=== PATIENT | female | born 1975 | race Caucasian/White ===

== ENCOUNTER 2017-09-16 18:28 | Inpatient (IN) | payer OTHER, MEDICAID ==
--- NOTE | 2017-09-16 19:13 | EDPHY ---
H & P Smoking Status: Never smoked Time Seen by Provider: 09/16/17 18:49 HPI/ROS: CHIEF COMPLAINT: Bipolar HISTORY OF PRESENT ILLNESS: 42-year-old female presents to the emergency department with a history of bipolar. She also has a history of frequent ECT. She presents to the emergency department extremely agitated. Her states that she gets like this frequently. She used to have ECT monthly however has not had ECT in about 3 months. She was already evaluated by mental health and was sent to the emergency department for medical clearance and likely admission and likely ECT tomorrow. No substance abuse. No history of trauma. REVIEW OF SYSTEMS: Obtained by the . Constitutional: No fever, no chills. Eyes: No double or blurry vision. ENT: No sore throat. Respiratory: No cough, no shortness of breath. Cardiac: No chest pain. Gastrointestinal: No abdominal pain, vomiting or diarrhea. Genitourinary: No dysuria. Musculoskeletal: No neck or back pain. Skin: No rashes. Neurological: No headache. (Katy Jason) Past Medical/Surgical History: Bipolar (Katy Jason) Social History: (Katy Jason) Physical Exam: General Appearance: Alert, no distress. No physical signs of trauma to her head. Eyes: Pupils equal and round. Extraocular motions are all intact. ENT: Mouth: Mucous membranes moist. Respiratory: No wheezing, rhonchi, or rales, lungs are clear to auscultation. Cardiovascular: Regular rate and rhythm. Gastrointestinal: Abdomen is soft and nontender, no masses, no rebound or guarding, bowel sounds normal. Neurological: Uncooperative, can't determine. Skin: Warm and dry, no rashes. Musculoskeletal: Nontender to palpate along the cervical, thoracic or lumbar spine. Neck is supple. Extremities: Full range of motion and no peripheral edema. Psychiatric: Agitated. (Katy Jason) Constitutional: Initial Vital Signs Temperature (C) 36.8 C 09/16/17 19:01 Heart Rate 116 H 09/16/17 19:01 Respiratory Rate 18 09/16/17 19:01 Blood Pressure 107/75 09/16/17 19:01 O2 Sat (%) 97 09/16/17 19:01 O2 Delivery Mode Room Air O2 (L/minute) 97 Allergies/Adverse Reactions: risperidone [From Risperdal] Allergy (Severe, Verified 11/05/14 21:18) haloperidol [From Haldol] Allergy (Verified 09/17/17 07:10) Home Medications: Medication Instructions Recorded Divalproex [Depakote] 1,000 mg PO DAILY #60 tab 11/20/14 Divalproex [Depakote] 1,500 mg PO HS #90 tab 11/20/14 Levothyroxine [Synthroid 100 mcg 100 mcg PO DAILY@10 #30 tab 11/20/14 (*)] [place] Carbonate [[place] 300 mg PO BID #60 cap 11/20/14 Carbonate Cap 300 mg (*)] lamoTRIgine [LamICTAL 100 MG (*)] 200 mg PO HS #60 tab 11/20/14 Medical Decision Making ED Course/Re-evaluation: The patient has been medically cleared. She is awaiting placement. Mental health is aware. Her lithium and Depakote levels are therapeutic. The patient has a history of neuroleptic malignant syndrome and therefore does not tolerate her medications. Her states that initially she was very sensitive and Ativan. She was initially given Zyprexa 10 mg p.o. and then was given Ativan p.o.. (Katy Jason) 0353: Patient has been evaluated. Plan for transfer to [address] [place] [address] in the morning. For ECT. 0716: Patient here in emergency room floridly psychotic, history of bipolar with medication compliance brought in with her . Patient is to be admitted to [address] [place] [address] today. For ECT. Plan will be for acceptance once a bed is available. Patient be appropriately transfer. Patient signed over at 7:00 a.m. shift change to Dr. Person. (Prateek Riley) Differential Diagnosis: Altered mental status including but not limited to hypoglycemia, infectious process, electrolyte abnormality, head injury and intoxicants. (Katy Jason) Other Provider: I assumed care of the patient at 7 o'clock in the morning pending psychiatric disposition. Update at 7:30 a.m.: I am informed the patient has been accepted for inpatient admission here at [facility] inpatient psychiatric unit. (Cory Person) The patient was evaluated and managed by the Physician Keyseating Machine Set Up Operator/ Nurse Practitioner. I discussed the patient's presentation and course with the midlevel provider with them and agree with the evaluation. I did speak to the patient and the briefly. Patient is quite delusional. She is very agitated and will require sedation. Her is aware of this. Patient has received Zyprexa in the past. She does have a history of neuroleptic malignant syndrome and Haldol will be avoided. reports that when she has received Ativan in the past it has been quite sedating. Patient did agree to 10 mg of Zyprexa by mouth. This had minimal impact on her agitation. Ativan was then given. Patient's understands the need for sedation to ensure the patient's safety as well as staff safety as well as to ensure appropriate medical intervention can take place. (Yolis Muller) Care Turn Over: Case was turned over to Dr. Riley for disposition and plan. (Katy Jason) - Data Points Laboratory Results: Laboratory Results 09/16/17 20:30 09/16/17 20:30 Medications Given: Discontinued Medications Lorazepam (Ativan) 0.5 mg PO EDNOW ONE Stop: 09/16/17 19:46 Last Admin: 09/16/17 19:46 Dose: 0.5 mg Lorazepam (Ativan Injection) 0.5 mg IVP EDNOW ONE Stop: 09/16/17 21:06 Last Admin: 09/16/17 21:27 Dose: Not Given Lorazepam (Ativan) 0.5 mg PO EDNOW ONE Stop: 09/16/17 21:30 Last Admin: 09/16/17 21:31 Dose: 0.5 mg Lorazepam (Ativan) 1 mg PO EDNOW ONE Stop: 09/16/17 22:59 Last Admin: 09/16/17 23:21 Dose: 1 mg Lorazepam (Ativan Injection) 2 mg IM EDNOW ONE Stop: 09/17/17 00:15 Last Admin: 09/17/17 00:24 Dose: 2 mg Lorazepam (Ativan) 2 mg PO ONCE ONE Stop: 09/17/17 06:58 Last Admin: 09/17/17 07:04 Dose: 2 mg Olanzapine (Olanzapine) 10 mg PO ONCE ONE Stop: 09/16/17 19:26 Last Admin: 09/16/17 19:25 Dose: 10 mg Departure - Departure Disposition: [facility] IP Clinical Impression: Bipolar 1 disorder Condition: Fair
[2017-09-16] MEDS ORDERED: OLANZapine 5 MG TAB ONE (19:24)
[2017-09-16] MEDS ORDERED: OLANZapine 5 MG TAB PO ONE (19:25)
[2017-09-16] MEDS ORDERED: LORazepam 0.5 MG TAB ONE (19:36)
[2017-09-16] MEDS ORDERED: LORazepam 0.5 MG TAB PO ONE ×2 (19:45→21:29)
[2017-09-16 20:35] LABS: % IMMATURE GRANULYOCYTES 0.4 % (0.0-1.1); ABSOLUTE IMMATURE GRANULOCYTES 0.03 10^3/uL (0.00-0.10); ADD DIFF? NO; ADD MORPH? NO; ADD SCAN? NO; ATYPICAL LYMPHOCYTE FLAG 10 (0-99); FRAGMENT RBC FLAG 0 (0-99); HEMATOCRIT 37.5 % (38.0-47.0); HEMOGLOBIN 12.4 g/dL (12.6-16.3); LEFT SHIFT FLG 0 (0-99); LIPEMIA HEMOLYSIS FLAG 80 (0-99); MEAN CELL HEMOGLOBIN CONCENTR. 33.1 g/dL (32.4-36.7); MEAN CELL VOLUME 90.8 fL (81.5-99.8); MEAN PLATELET VOLUME 10.5 fL (8.7-11.7); PLATELET CLUMPS FLAG 10 (0-99); PLATELET COUNT 218 10^3/uL (150-400); RED BLOOD CELL COUNT 4.13 10^6/uL (4.18-5.33); RED CELL DISTRIBUTION WIDTH 13.1 % (11.5-15.2)
[2017-09-16 20:45] LABS: ANION GAP 12 mEq/L (8-16); CALCIUM 10.1 mg/dL (8.5-10.4); CARBON DIOXIDE 22 mEq/l (22-31); CHLORIDE 105 mEq/L (97-110); GLOMERULAR FILTRATION RATE > 60; GLUCOSE 95 mg/dL (70-100); POTASSIUM 3.8 mEq/L (3.5-5.2); SODIUM 139 mEq/L (134-144)
[2017-09-16] MEDS ORDERED: LORazepam 2 MG/ML INJ IVP ONE (21:05)
[2017-09-16 22:49] LABS: LITHIUM 0.9 mEq/L (0.6-1.2)
[2017-09-16] MEDS ORDERED: LORazepam 1 MG TAB PO ONE (22:58)
[2017-09-17] MEDS ORDERED: LORazepam 2 MG/ML INJ IM ONE (00:14)
[2017-09-17] MEDS ORDERED: LORazepam 2 MG/ML INJ ONE (00:17)
--- NOTE | 2017-09-17 06:56 | CPEKG ---
Heart Rate: 98 RR Interval: 612 P-R Interval: 192 QRSD Interval: 98 QT Interval: 364 QTC Interval: 465 P [place]: 64 QRS [place]: 3 T Wave [place]: 84 EKG Severity - ABNORMAL ECG - EKG Impression: SINUS RHYTHM Electronically Signed By: Cory Person 17-Sep-2017 08:32:15
[2017-09-17] MEDS ORDERED: LORazepam 1 MG TAB PO ONE ×2 (06:57→23:00)
[2017-09-17] MEDS ORDERED: LORazepam 1 MG TAB ONE (06:58)
[2017-09-17] MEDS ORDERED: MAG HYDROX/AL HYDROX/SIMETH 30 ML UDCUP PO PRN (11:35)
[2017-09-17] MEDS ORDERED: MAGNESIUM HYDROXIDE 30 ML UDCUP PO PRN (11:35)
[2017-09-17] MEDS ORDERED: LIDOCAINE/PRILOCAINE 1 EACH CRTUBE TP ONE (13:06)
[2017-09-17] MEDS ORDERED: SCOPOLAMINE HYDROBROMIDE 1 MG/3 DAYS PATCH TD ONE (13:07)
[2017-09-17] MEDS ORDERED: THEOPHYLLINE ORAL SOLUTION 80 MG/15 ML UDCUP PO ONE (14:44)
[2017-09-17] MEDS ORDERED: THEOPHYLLINE ORAL SOLUTION 80 MG/15 ML UDCUP ONE (14:45)
[2017-09-17] MEDS ORDERED: CITRIC ACID/SODIUM CITRATE 30 ML UDCUP ONE (15:05)
[2017-09-17] MEDS ORDERED: ONDANSETRON DISINTEGRATING 4 MG TAB ONE (15:05)
[2017-09-17] MEDS: SCOPOLAMINE HYDROBROMIDE 1 MG/3 DAYS PATCH TD SCH (15:26)
[2017-09-17] MEDS ORDERED: MIDAZOLAM 2 MG/2 ML VIAL ONE (15:27)
[2017-09-17] MEDS ORDERED: fentaNYL 100 MCG/2 ML INJ ONE (15:27)
[2017-09-17] MEDS ORDERED: KETOROLAC 30 MG/1 ML SDV ONE (15:28)
[2017-09-17] MEDS ORDERED: ONDANSETRON 4 MG/2 ML VIAL ONE (15:28)
[2017-09-17] MEDS ORDERED: LIDOCAINE 2% 5 ML SDV ONE (15:28)
[2017-09-17] MEDS ORDERED: GLYCOPYRROLATE 0.2 MG/1 ML VIAL ONE (15:28)
[2017-09-17] MEDS ORDERED: ETOMIDATE 20 MG/10 ML VIAL ONE (15:29)
[2017-09-17] MEDS ORDERED: ROCURONIUM 50 MG/5 ML VIAL ONE (15:29)
[2017-09-17] MEDS ORDERED: ATROPINE SULFATE 1 MG/ML VIAL ONE (15:29)
[2017-09-17] MEDS ORDERED: LABETALOL HCL 5 MG/ML 20 ML MDV ONE (15:29)
[2017-09-17] MEDS ORDERED: NEOSTIGMINE METHYLSULFATE 3 MG/3 ML SYR ONE (15:29)
--- NOTE | 2017-09-17 15:47 | BAPA ---
[f rep st] ADMISSION PSYCHIATRIC ASSESSMENT DATE OF SERVICE: 09/17/2017 REASON FOR ADMISSION: Patient is a 42-year-old female with a long history of severe bipola r disorder. She presents to the unit after having come to the emergency department yesterday afterno on with family due to a severe decompensation of her illness. She had been doing reasonably well but apparently had begun tapering her medications beginning in early summer. She then also dropped out of her monthly maintenance ECT after her treatment in mid May; this was apparently through an agreem ent between her and her as they desired for her to have less treatment for some reason. None of this was discussed with her outpatient team or her parents who act as her power of suction plate carrier cleaner and a re her primary supports. It is clear that in the past, when she has not been consistent with the med ications, she has had severe manic decompensations involving catatonia which has led to neuroleptics malignant syndrome or central hyperthermia, catatonia and the need for ECT. 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 She is iman ble to communicate her needs and simply speaks in undecipherable gibberish. She continually disrobes and requires a one-to-one at all times to keep her sitting still or to stay in bed. She received nu merous doses of lorazepam in the emergency department and is unstable on her feet and is a significan t fall risk, necessitating staff redirection. She is unable to verbalize whether or not she recogniz es me, though does make eye contact and seems to be somewhat calmed when I interact with her. PAST PSYCHIATRIC HISTORY: Significant for multiple previous psychiatric hospitalizations. She is fo llowed through [facility] in [facility]. Her last hospitalization here was 11/06 through 11/20/14, though she also was apparently here from 08/17 to 08/29/15. I just do not fi nd the records in the chart from that stay. ALLERGIES: Risperdal and Haldol. CURRENT MEDICATIONS: Unclear. The patient had been taking Depakote 1000 mg daily and 1500 mg h.s., L amictal 200 mg at h.s., and lithium 300 mg twice daily. Also levothyroxine 100 mcg daily. She has a pparently been decreasing this and it is unclear to what degree they were decreased and/or if any of them were stopped. There is a message into her to attempt to answer this question. PAST MEDICAL HISTORY: Significant for some developmental issues occurring in her childhood. She is status post tubal ligation. History of NMS about 5 years ago. SOCIAL HISTORY: Patient is and lives with her in [place]. 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 She has had this job for approximately 2 years. Her parents live in [place] but are her primary supports. She has a sister who lives locally to whom she is ve ry attached, who has several children. Historically the patient has a history of decompensation in he late fall around the holidays, does not have clear associations to family stress but has been a co nsistent pattern. SUBSTANCE ABUSE HISTORY: Noncontributory. FAMILY HISTORY: Noncontributory. ADMISSION LABORATORY DATA: CBC shows an H and H now at 12.4 and 37.5, with a normal MCV, otherwise n ormal. Serum chemistries are normal. TSH is normal at 2.86. Beta HCG is negative. Urine drug scre en is positive for PCP. [place] is 0.9. MENTAL STATUS EXAMINATION: Reveals a disheveled, agitated, female. She is wearing hospita l bottoms but no top. She is lying in bed when I enter the room but then sits up and consistently tr ies to get out of bed. We tried to attempt to redirect her to calm and to lie back down, but this is difficult. She speaks continuously but in an unintelligible way. I mentioned my name to her yaneli l times and she is able to make reasonable eye contact, then points insistently toward the nurse at t he bedside stating "no, no, not her." She is not physically aggressive, just demonstrates a high lev el of psychomotor agitation. Her affect is constricted, though appears anxious. Her thought process appears to be very disorganized. It is difficult to assess whether she is having any hallucinatory experiences, though appears, again, quite disorganized. It is not possible to test her orientation a s she is unable to give answers to questions in regard to this. VITAL SIGNS: The patient's blood pressure ranges from 107-143 systolic over 69-71 diastolic. Her pul se ranges from 69-114, respiratory rate from 13-18. Oxygen saturation is 97% to 99% on room air. He r temperature is normal at 36.7-37.3. IMPRESSION: Bipolar 1 disorder, most recent episode manic, severe, with psychosis, with catatonia, l ikely an excited variant, recurrent illness, chronic illness ,medication noncompliance. PLAN: The patient is a 42-year-old female with severe bipolar illness who presents at this time with a severe decompensation related to medication noncompliance. This has been a willful thin g between she and her and it is disappointing that, between the good supports from her family and the close followup from our service, we were unable to better monitor and preempt this prior to her severe decompensation. In the past, in similar circumstances, she has reached the point of life- threatening illness and it appears she is well on her way to that at this time as well. I believe th is is an emergency. As she is not able to the eat, drink or take any of her medications at this time . It is not reasonable to wait for a court order for ECT treatment as we need to begin immediately d ue to her high level of agitation and the real potential for further decompensation including recurre nt NMS that has been a problem in the past. If this did occur, we would be limited in our medication choices further than we are now. I recommend that we begin emergency ECT at this time and will peti tion the court for involuntary treatment as well. The patient will remain in the hospital during at least the beginning of the acute course until she i s adequately stabilized. Estimated length of stay is 7-10 days. /[id number]/MODL
[2017-09-18] MEDS ORDERED: GLYCOPYRROLATE 0.2 MG/1 ML VIAL ONE (06:07)
[2017-09-18] MEDS ORDERED: ETOMIDATE 20 MG/10 ML VIAL ONE (06:07)
[2017-09-18] MEDS ORDERED: fentaNYL 100 MCG/2 ML INJ ONE (06:07)
[2017-09-18] MEDS ORDERED: KETOROLAC 30 MG/1 ML SDV ONE (06:07)
[2017-09-18] MEDS ORDERED: LABETALOL HCL 5 MG/ML 20 ML MDV ONE (06:07)
[2017-09-18] MEDS ORDERED: MIDAZOLAM 2 MG/2 ML VIAL ONE (06:07)
[2017-09-18] MEDS ORDERED: ONDANSETRON 4 MG/2 ML VIAL ONE (06:07)
[2017-09-18] MEDS ORDERED: ROCURONIUM 50 MG/5 ML VIAL ONE (06:08)
[2017-09-18] MEDS ORDERED: NEOSTIGMINE METHYLSULFATE 3 MG/3 ML SYR ONE (06:09)
[2017-09-18] MEDS ORDERED: ATROPINE SULFATE 1 MG/ML VIAL ONE (06:09)
[2017-09-18] MEDS: LEVOTHYROXINE 100 MCG TAB PO SCH (08:51)
[2017-09-18] MEDS ORDERED: LIDOCAINE 2% 5 ML SDV ID ONE (11:31)
[2017-09-18] MEDS ORDERED: SCOPOLAMINE HYDROBROMIDE 1 MG/3 DAYS PATCH TD SCH (11:31)
[2017-09-18] MEDS ORDERED: THEOPHYLLINE ORAL SOLUTION 80 MG/15 ML UDCUP PO ONE (11:31)
[2017-09-18] MEDS ORDERED: ONDANSETRON DISINTEGRATING 4 MG TAB PO ONE (11:31)
[2017-09-18] MEDS ORDERED: NS 1,000 ML IV ONE (11:31)
[2017-09-18] MEDS ORDERED: CITRIC ACID/SODIUM CITRATE 30 ML UDCUP PO ONE (11:31)
[2017-09-18] MEDS ORDERED: CITRIC ACID/SODIUM CITRATE 30 ML UDCUP ONE (14:09)
[2017-09-18] MEDS ORDERED: ONDANSETRON DISINTEGRATING 4 MG TAB ONE (14:09)
--- NOTE | 2017-09-18 14:37 | BCON ---
[f rep st] BEHAVIORAL HEALTH CONSULTATION INTERNAL MEDICINE CONSULTATION DATE OF CONSULTATION: 09/18/2017 REFERRING PHYSICIAN: Claudio Gerber MD REASON FOR REFERRAL: Medical clearance for inpatient behavioral health stay. HISTORY OF PRESENT ILLNESS: This patient came to the [facility] Emergency Department, brought by her with extreme agitation. She has a history of severe bipolar disorder with decompensation when she tapers medications. She had been managed with monthly ECT, as well. She had been tapering medications through the summer, and had not continued with her monthly ECT. She was evaluated in the emergency department, where she needed multiple doses of lorazepam and she was admitted for further psychiatric care. Yesterday, she had an emergency session of electroconvulsive therapy, and I believe also this morning. She is currently without any acute complaints, but she is extremely pressured in her speech and mostly unintelligible, and is not responding appropriately to questions. PAST MEDICAL HISTORY: 1. Bipolar disorder. 2. Hypothyroidism. 3. Neuroleptic malignant syndrome. 4. Tubal ligation. MEDICATIONS: Prior to admission, she was prescribed: 1. Valproic acid 1000 mg p.o. daily and 1500 mg p.o. at bedtime. 2. Lamotrigine 200 mg at bedtime. 3. [place] 300 mg twice a day. 4. Levothyroxine 100 mcg daily. ALLERGIES: Listed to risperidone and haloperidol. SOCIAL HISTORY: She is , lives with her . 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 Her parents live in [place] and are her primary support. She is a nonsmoker and does not use alcohol. FAMILY HISTORY: Noncontributory. REVIEW OF SYSTEMS: Cannot be obtained due to patient's inability to answer questions. PHYSICAL EXAM: VITAL SIGNS: Vitals have not been obtained today as she has been too agitated. Upon presentation at the emergency room yesterday morning, blood pressure was 140/70, heart rate was 69, respiratory rate was 13, oxygen saturation was 99% on room air, temperature was 36.7 degrees centigrade. Yesterday afternoon blood pressure was lower at 115/51, however, her heart rate was 120, respiratory rate was 16, oxygen saturation was 96% on room air. Temperature was 36.4 degrees centigrade. Her weight is 78.5 kg for a body mass index of 28.8. GENERAL: This is an overweight woman, appears her chronologic age with psychomotor agitation and pressured but mostly unintelligible speech. She responds to some requests, for instance, to leave the group room where she was watching a movie and then subsequently to return to the group room. Otherwise, she does not have appropriate responses to questions or commands. HEENT: Extraocular movements are intact. Mucous membranes are moist. Dentition is in good condition. NECK: Supple. HEART AND LUNGS: Exams could not be accomplished. She is not tachypneic and there are no retractions or use of accessory muscles. ABDOMEN: Exam could not be accomplished. NEUROLOGIC: Cranial nerves 2-12 are grossly intact. Her mental status is as described above. There is no focal weakness. Gait is within normal limits. She self corrects minor loss of balance while she is walking backwards. LABORATORY STUDIES: Drawn in the emergency department, CBC revealed anemia with a hemoglobin of 12.4 and hematocrit of 37.5. Otherwise, was overall within normal limits. Serum chemistry revealed normal renal function and electrolytes. TSH was normal at 2.86. Beta hCG was negative for . Toxicology screen in the serum revealed therapeutic levels of valproic acid at 101.9 and lithium at 0.9. Urine toxicology screen was non-negative for phencyclidine but was otherwise negative for substances of abuse. ASSESSMENT/RECOMMENDATIONS: 1. Mental health issues, pending further evaluation and management per Psychiatry and the mental health team. 2. Possible false-positive urine tox screen for phencyclidine. Lamotrigine on some assays can give a false positive for phencyclidine. If there is concern for hallucinogen use given her mental status, it is possible the lab could run a more specific phencyclidine test, either on the serum or the urine that was collected yesterday. I will leave this to the discretion of Psychiatry to pursue further. 3. Anemia of unclear etiology. I will add on an iron panel to yesterday's labs , if the sample is still available for the laboratory to process. She should have further evaluation regarding the etiology of the anemia after her discharge , with her primary care physician. 4. I see no medical contraindications to this patient's continued stay in the inpatient behavioral health unit or to any psychiatric medications or procedures with the exception of history of neuroleptics malignant syndrome. Thank you very much for including me in the care of this patient. Please do not hesitate to contact me or the hospitalist service should there be need for further medical evaluation. When she is more psychiatrically stabilized, she could have a more full medical evaluation. /[id number]/MODL MTDAnushka
--- NOTE | 2017-09-18 14:59 | SOAPPROG ---
SOAP Progress Note Assessment/Plan: Assessment: Plan: 09/18/17 14:58 No improvement yet. CCM. Subjective: Pt seen, discussed with staff. Remains very agitated, pressured, disorganized. Did not sleep last night. Crying and asking for help. Lying on the floor by the main door. Underwent ECT without complication. Objective: Vital Signs Temp Pulse Resp BP Pulse Ox 36.4 C 120 H 16 115/51 L 96 09/17/17 17:16 09/17/17 17:16 09/17/17 17:16 09/17/17 17:16 09/17/17 17:16 MSE: Agitated, disorganized, disheveled. Affect is irritable. Mood is "bad." TP disorganized. TC reveals no clear evidence of hallucinations, though does appear paranoid, afraid others are going to hurt her. - Time Spent With Patient Time Spent With Patient: 35" ICD10 Worksheet Patient Problems: Problems Problem Status Onset Bipolar 1 disorder Acute Altered mental status Active Bipolar disorder Active
[2017-09-18 15:22] LABS: HEMATOCRIT 39.5 % (38.0-47.0)
[2017-09-18 16:43] LABS: HEMATOCRIT 33.7 % (38.0-47.0)
[2017-09-18] MEDS: LORazepam 1 MG TAB PO PRN (17:51)
[2017-09-18 18:12] LABS: % SATURATION 22 % (20-55); TOTAL IRON BINDING CAPACITY 443 ug/dL (260-490)
[2017-09-18] MEDS: ZOLPIDEM TARTRATE 5 MG TAB PO PRN (21:39)
[2017-09-19] MEDS: ACETAMINOPHEN 325 MG TAB PO PRN (03:51)
[2017-09-19] MEDS ORDERED: NS 1,000 ML IV ONE (05:00)
[2017-09-19] MEDS ORDERED: THEOPHYLLINE ORAL SOLUTION 80 MG/15 ML UDCUP PO ONE (05:00)
[2017-09-19] MEDS ORDERED: CITRIC ACID/SODIUM CITRATE 30 ML UDCUP PO ONE (05:00)
[2017-09-19] MEDS ORDERED: ONDANSETRON DISINTEGRATING 4 MG TAB PO ONE (05:00)
[2017-09-19] MEDS ORDERED: LIDOCAINE 2% 5 ML SDV ID ONE (05:00)
[2017-09-19] MEDS ORDERED: ONDANSETRON DISINTEGRATING 4 MG TAB ONE (06:20)
[2017-09-19] MEDS ORDERED: CITRIC ACID/SODIUM CITRATE 30 ML UDCUP ONE (06:20)
[2017-09-19] MEDS ORDERED: SCOPOLAMINE HYDROBROMIDE 1 MG/3 DAYS PATCH TD ONE (06:21)
[2017-09-19] MEDS ORDERED: fentaNYL 100 MCG/2 ML INJ ONE (06:33)
[2017-09-19] MEDS ORDERED: MIDAZOLAM 2 MG/2 ML VIAL ONE (06:33)
[2017-09-19] MEDS ORDERED: ETOMIDATE 20 MG/10 ML VIAL ONE (06:34)
[2017-09-19] MEDS ORDERED: KETOROLAC 30 MG/1 ML SDV ONE (06:34)
[2017-09-19] MEDS ORDERED: LIDOCAINE 2% 5 ML SDV ONE (06:34)
[2017-09-19] MEDS ORDERED: LABETALOL HCL 5 MG/ML 20 ML MDV ONE (06:34)
[2017-09-19] MEDS ORDERED: GLYCOPYRROLATE 0.2 MG/1 ML VIAL ONE (06:34)
[2017-09-19] MEDS ORDERED: ONDANSETRON 4 MG/2 ML VIAL ONE (06:34)
[2017-09-19] MEDS ORDERED: NEOSTIGMINE METHYLSULFATE 3 MG/3 ML SYR ONE (06:35)
[2017-09-19] MEDS ORDERED: ROCURONIUM 50 MG/5 ML VIAL ONE (06:35)
[2017-09-19] MEDS ORDERED: ATROPINE SULFATE 1 MG/ML VIAL ONE (06:36)
--- NOTE | 2017-09-19 07:16 | SOAPPROG ---
SOAP Progress Note Assessment/Plan: Assessment: Plan: 09/18/17 14:58 No improvement yet. CCM. 09/19/17 07:21 Some improvement noted. Will CCM inc: acute course ECT and holding meds. Will restart meds when pt has largely responded to ECT to avoid interfering with the treatments or contributing to confusion (lithium.) Subjective: Pt seen, discussed with staff. Remains agitated, though slept several hours with zolpidem. Agitated and resistive to care this morning. Able to calm a bit when I talk with her but this is not sustained. Her speech remains pressured and largely incoherent, though she is putting together some phrases. She underwent bilateral ECT this morning with a good result. She had the best morphology and duration of seizure we have seen in a long time. No complications. Objective: Vital Signs Temp Pulse Resp BP Pulse Ox 37.1 C 104 H 20 116/59 L 93 09/18/17 16:21 09/19/17 06:00 09/19/17 06:00 09/19/17 06:00 09/19/17 06:00 Laboratory Results 09/18/17 15:10 MSE: Agitated, yelling, writhing on bed. Affect is angry, tearful, labile. Mood is "bad." TP disorganized though she is able to make a few brief statements such as "Get away from me", "Just hurry up and do it." - Time Spent With Patient Time Spent With Patient: 35" ICD10 Worksheet Patient Problems: Problems Problem Status Onset Bipolar 1 disorder Acute Altered mental status Active Bipolar disorder Active
[2017-09-19] MEDS: LEVOTHYROXINE 100 MCG TAB PO SCH (07:55)
[2017-09-19] MEDS: LORazepam 1 MG TAB PO PRN ×2 (07:55→22:47)
[2017-09-20] MEDS: ZOLPIDEM TARTRATE 5 MG TAB PO PRN (02:42)
[2017-09-20] MEDS: LORazepam 1 MG TAB PO PRN ×2 (03:19→07:35)
[2017-09-20] MEDS: ACETAMINOPHEN 325 MG TAB PO PRN (06:59)
[2017-09-20] MEDS: LEVOTHYROXINE 100 MCG TAB PO SCH (07:35)
--- NOTE | 2017-09-20 11:13 | SOAPPROG ---
SOAP Progress Note Assessment/Plan: Assessment: 42yo CF with severe BMD, manic/psychotic with excited catatonia features related to med noncompliance, history of NMS, now undergoing emergent ECT treatments 09/20/17 15:14 per staff, slept 5hr last night. Had 3rd ECT yesterday AM with good results. Staff reports improvement since admission, kika still on 1:1, being overall more redirectable, a little more organized, less intrusive, took shower and was "meticulous" with her personal hygiene this am. Per staff, eating a little more of her meals, kika still disorganized with putting food in piles all over tabletop and mixing things. continues with affective lability and speech is largely incoherent, but has been drawing/ writing, watching shows and listening to music. trying to attend some groups as much as tolerates On brief interaction yesterday, pt requested communication on paper with colorful markers, and wrote "never better" in response to how feeling. seemed to acknowledge her ECT treatment went well. On interview today, pt a bit more intelligible in her speech, more brief phrases althalissa still not well-organized with speech and thoughts. was in room with 1:1 staff during interview. reports feeling "tired", then stated "2 weeks couldn't move.. $300..at hospital...5 pills in the morning...". and sister visited today. brought food. "I got a joke..." which was unintelligible to staff/me but then pt burst out laughing at her own joke. aware of ECT scheduled in AM. mentioned abdominal pain, indicated all over abdomen, denied CP/SOB, "not menstrual", and had told staff she usually takes Colace at home. MSE: casually dressed, showered/clean, good eye contact, incr psychom activity with frequent gesturing, moving from one place to another, mood "tired", disorganized behavior/speech and unintelligible at times, but overall stringing together more brief phrases, continues with affective lability but seeming less frequent and has been more redirectable. has not had any SI/HI and no evid of responding to internal stimuli PLAN: continue with 1:1 staff. cont emergent ECT as scheduled, early improvement seems evident, and cont with current meds Ambien and prn Ativan cont no antipsychotics, and holding mood stabilizers, only with prn Ativan and prn Ambien at HS; cont routine/regular VS monitoring. 1:1 staff states pt sister and pt did not seem to be in agreement around f/u MH treatment after d/c, regarding whether pt should take meds/ECT. may need to be clarified/addressed by team during week as this may affect outpt compliance/stability will ask hospitalist presently on unit for brief eval of abd pain, given her poor history and impaired communication Objective: Vital Signs Temp Pulse Resp BP Pulse Ox 36.4 C 103 H 12 117/56 L 96 09/20/17 08:00 09/20/17 08:00 09/20/17 08:00 09/20/17 08:00 09/20/17 08:00 Laboratory Results 09/18/17 15:10 - Time Spent With Patient Time Spent With Patient: 25min - Pending Discharge Pending Discharge Within 24 Hours: No Pending Discharge Within 48 Hours: No ICD10 Worksheet Patient Problems: Problems Problem Status Onset Bipolar 1 disorder Acute Altered mental status Active Bipolar disorder Active
[2017-09-20] MEDS: PATCH REMOVAL 1 EA PATCH TD SCH (15:03)
[2017-09-20] MEDS: SCOPOLAMINE HYDROBROMIDE 1 MG/3 DAYS PATCH TD SCH (15:23)
[2017-09-20] MEDS ORDERED: SENNOSIDES 1 TAB PO PRN (16:52)
[2017-09-20] MEDS ORDERED: MAGNESIUM CITRATE 300 ML BOTTLE PO PRN (16:55)
--- NOTE | 2017-09-20 18:07 | GCON ---
[f rep st] CONSULTATION DATE OF CONSULTATION: 09/20/2017 CHIEF COMPLAINT: Constipation. HISTORY OF PRESENT ILLNESS: The patient is a 42-year-old female with a past medical history of bipol ar 1 disorder, currently in inpatient psychiatric care for psychosis and ECT therapy. She has been i n the hospital for about 4 days and has not had a bowel movement. Incidentally, her appetite was not that great prior to coming in. She had not eaten for about a week is what she states. In talking w ith staff in the inpatient psychiatric unit, it does not sound like she has been eating a significant amount either, but is drinking liquids without difficulty. She says that she takes Colace at home, and that is the only thing that works. Otherwise, getting the history is somewhat difficult with her speech, as I am not sure what she is referring to at times in our conversation. PAST MEDICAL HISTORY: 1. Bipolar disorder. 2. Psychosis. 3. Developmental issues in childhood. PAST SURGICAL HISTORY: Tubal ligation. ALLERGIES: 1. Risperdal. 2. Haldol. MEDICATIONS: Her current medications include: 1. Acetaminophen 650 mg every 4 hours as needed. 2. Colace 100 mg nightly. 3. Levothyroxine 100 mcg daily. 4. Lorazepam 1 mg every 4 hours as needed. 5. Magnesium hydroxide. 6. Scopolamine patch. 7. Zolpidem 10 mg nightly. SOCIAL HISTORY: The patient is . She lives with her is Antonio. 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 She does have a sister who lives locally, and they are close. FAMILY HISTORY: Her mother and father are both living, with uncertain medical issues. REVIEW OF SYSTEMS: CONSTITUTIONAL: No complaints of any fevers or chills. ENT: No recent upper re spiratory illnesses. CARDIOVASCULAR: No complaints of chest pain, palpitations, or syncopal episode s. RESPIRATORY: No complaints of shortness of breath or a productive cough. GI: No nausea or vomi ting. No report of abdominal distention. No report of any bloody stools. No prior bowel obstructio ns. : No report of any difficulty with urination. NEUROLOGIC: No complaints of headaches or any focal weakness. HEMATOLOGIC: No history of any deep vein thrombosis or pulmonary embolism. PSYCHI ATRIC: Multiple psychiatric hospitalizations in the past. ENDOCRINE: She is on levothyroxine. Unc ertain if this is for hypothyroidism versus psychiatric illness. SKIN: No report of any concerning skin rashes. MUSCULOSKELETAL: No focal joint pains. PHYSICAL EXAMINATION: VITAL SIGNS: Temperature 36.9, blood pressure 117/56, heart rate 103, respira tions 12, satting 94% on room air. GENERAL: The patient is sitting in a chair in the break room in no acute distress. She does interact, but her speech is somewhat difficult to interpret at times. H EENT: Extraocular movements appear intact. No scleral icterus is noted. NECK: No thyroid enlargem ent appreciated. CHEST: Clear on auscultation, with normal respiratory effort. HEART: Regular. N o murmurs. ABDOMEN: Nondistended. Soft and nontender with palpation. : No Nugent catheter in pl candi. EXTREMITIES: No significant pitting edema. NEUROLOGIC: Cranial nerves 2 through 12 appear in tact. Her strength seems 5/5 in all extremities. LABORATORY DATA: Most recent CBC shows a white blood cell count of 7, hemoglobin 12, and platelets 2 18. Sodium 139, potassium 3.8, chloride 105, bicarbonate 20, BUN 20, creatinine 1.0, glucose 95. TS H was 2.8. ASSESSMENT AND PLAN: 1. Constipation. We will try her on a regimen of daily Metamucil and MiraLAX, with Senokot at night time if she does not have any bowel movements during the daytime. We will hold the Colace for now. If this is not effective, possibly magnesium citrate as needed on a daily basis would be the reasonab le next step. 2. Bipolar disorder, with psychosis. Continue psychiatric care per Psychiatry. I appreciate the opportunity to be involved in this patient's case. At the current time, I do not se e any medical contraindication for continued inpatient psychiatric care. /[id number]/MODL
[2017-09-20] MEDS: cloZAPine 100 MG TAB PO SCH (20:07)
[2017-09-20] MEDS: PHENOL 177 ML THROAT SPRAY PO PRN (20:45)
[2017-09-20] MEDS ORDERED: DOCUSATE SODIUM 100 MG CAP PO SCH (21:00)
[2017-09-21] MEDS: PHENOL 177 ML THROAT SPRAY PO PRN ×2 (03:13→11:56)
[2017-09-21] MEDS: ZOLPIDEM TARTRATE 5 MG TAB PO PRN ×2 (03:24→19:52)
[2017-09-21] MEDS ORDERED: THEOPHYLLINE ORAL SOLUTION 80 MG/15 ML UDCUP PO ONE (04:00)
[2017-09-21] MEDS ORDERED: CITRIC ACID/SODIUM CITRATE 30 ML UDCUP PO ONE (04:00)
[2017-09-21] MEDS ORDERED: LIDOCAINE 2% 5 ML SDV ID ONE (04:00)
[2017-09-21] MEDS ORDERED: ONDANSETRON DISINTEGRATING 4 MG TAB PO ONE (04:00)
[2017-09-21] MEDS ORDERED: NS 1,000 ML IV ONE (04:00)
[2017-09-21] MEDS ORDERED: ONDANSETRON 4 MG/2 ML VIAL ONE (05:07)
[2017-09-21] MEDS ORDERED: MIDAZOLAM 2 MG/2 ML VIAL ONE (05:07)
[2017-09-21] MEDS ORDERED: fentaNYL 100 MCG/2 ML INJ ONE (05:07)
[2017-09-21] MEDS ORDERED: GLYCOPYRROLATE 0.2 MG/1 ML VIAL ONE (05:07)
[2017-09-21] MEDS ORDERED: KETOROLAC 30 MG/1 ML SDV ONE (05:07)
[2017-09-21] MEDS ORDERED: ROCURONIUM 50 MG/5 ML VIAL ONE (05:08)
[2017-09-21] MEDS ORDERED: LABETALOL HCL 5 MG/ML 20 ML MDV ONE (05:08)
[2017-09-21] MEDS ORDERED: ETOMIDATE 20 MG/10 ML VIAL ONE (05:08)
[2017-09-21] MEDS ORDERED: ATROPINE SULFATE 1 MG/ML VIAL ONE (05:09)
[2017-09-21] MEDS ORDERED: NEOSTIGMINE METHYLSULFATE 3 MG/3 ML SYR ONE (05:09)
[2017-09-21] MEDS ORDERED: ONDANSETRON DISINTEGRATING 4 MG TAB ONE (07:40)
[2017-09-21] MEDS ORDERED: CITRIC ACID/SODIUM CITRATE 30 ML UDCUP ONE (07:41)
[2017-09-21] MEDS: LEVOTHYROXINE 100 MCG TAB PO SCH (09:15)
[2017-09-21] MEDS: PSYLLIUM METAMUCIL 1 PKT PO SCH (11:51)
[2017-09-21] MEDS: POLYETHYLENE GLYCOL 3350 17 GM PKT PO SCH (11:51)
[2017-09-21] MEDS: LORazepam 1 MG TAB PO SCH ×2 (11:56→19:53)
[2017-09-21] MEDS: cloZAPine 100 MG TAB PO SCH (19:51)
[2017-09-22] MEDS: LORazepam 1 MG TAB PO SCH ×2 (05:44→16:44)
[2017-09-22] MEDS: POLYETHYLENE GLYCOL 3350 17 GM PKT PO SCH (08:43)
[2017-09-22] MEDS: PSYLLIUM METAMUCIL 1 PKT PO SCH (08:43)
[2017-09-22] MEDS: LEVOTHYROXINE 100 MCG TAB PO SCH (09:16)
[2017-09-22] MEDS: PHENOL 177 ML THROAT SPRAY PO PRN (09:16)
[2017-09-22] MEDS: cloZAPine 100 MG TAB PO SCH (18:02)
--- NOTE | 2017-09-22 18:50 | SOAPPROG ---
SOAP Progress Note Assessment/Plan: Assessment: Plan: 09/18/17 14:58 No improvement yet. CCM. 09/19/17 07:21 Some improvement noted. Will CCM inc: acute course ECT and holding meds. Will restart meds when pt has largely responded to ECT to avoid interfering with the treatments or contributing to confusion (lithium.) 09/22/17 18:50 Remaiuns psychotic CCM. Subjective: LATE ENTRY FOR 09/21/17. Pt seen, discussed with staff, chart reviewed. Did well with ECT, though remains agitated, pressured, difficult to redirect. Underewent ECt without complication. Objective: Vital Signs Temp Pulse Resp BP Pulse Ox 36.3 C 96 16 116/50 L 95 09/21/17 11:25 09/21/17 11:25 09/21/17 11:25 09/21/17 11:25 09/21/17 11:25 Laboratory Results 09/18/17 15:10 MSE: Agitated, refusing ECT at first, then agrees to proceed. No physical aggression. Speaks nonsensically in a pressured fashion. - Time Spent With Patient Time Spent With Patient: 35" ICD10 Worksheet Patient Problems: Problems Problem Status Onset Bipolar 1 disorder Acute Altered mental status Active Bipolar disorder Active
--- NOTE | 2017-09-22 18:53 | SOAPPROG ---
SOAP Progress Note Assessment/Plan: Assessment: Plan: 09/18/17 14:58 No improvement yet. CCM. 09/19/17 07:21 Some improvement noted. Will CCM inc: acute course ECT and holding meds. Will restart meds when pt has largely responded to ECT to avoid interfering with the treatments or contributing to confusion (lithium.) 09/22/17 18:50 Remaiuns psychotic CCM. 09/22/17 18:52 Catatonic excitement: some improvement. CCM. Subjective: Pt seen, discussed with staff. Agitated, pacing in room. Demonstrating stereotyped behaviors. Continues to require high level of observation and intervention. Objective: Vital Signs Temp Pulse Resp BP Pulse Ox 36.3 C 96 16 116/50 L 95 09/21/17 11:25 09/21/17 11:25 09/21/17 11:25 09/21/17 11:25 09/21/17 11:25 Laboratory Results 09/18/17 15:10 MSE: Agitated, pressured, disorganized. PAcing around room, organizing and reorganizing possessions. Able to answer some questions though generally unintelligible. - Time Spent With Patient Time Spent With Patient: 35" ICD10 Worksheet Patient Problems: Problems Problem Status Onset Bipolar 1 disorder Acute Altered mental status Active Bipolar disorder Active
[2017-09-23] MEDS ORDERED: CITRIC ACID/SODIUM CITRATE 30 ML UDCUP PO ONE (05:00)
[2017-09-23] MEDS ORDERED: LIDOCAINE 2% 5 ML SDV ID ONE (05:00)
[2017-09-23] MEDS ORDERED: ONDANSETRON DISINTEGRATING 4 MG TAB PO ONE (05:00)
[2017-09-23] MEDS ORDERED: THEOPHYLLINE ORAL SOLUTION 80 MG/15 ML UDCUP PO ONE (05:00)
[2017-09-23] MEDS ORDERED: NS 1,000 ML IV ONE (05:00)
[2017-09-23] MEDS ORDERED: fentaNYL 100 MCG/2 ML INJ ONE (05:55)
[2017-09-23] MEDS ORDERED: MIDAZOLAM 2 MG/2 ML VIAL ONE (05:55)
[2017-09-23] MEDS ORDERED: GLYCOPYRROLATE 0.2 MG/1 ML VIAL ONE (05:56)
[2017-09-23] MEDS ORDERED: KETOROLAC 30 MG/1 ML SDV ONE (05:56)
[2017-09-23] MEDS ORDERED: LABETALOL HCL 5 MG/ML 20 ML MDV ONE (05:56)
[2017-09-23] MEDS ORDERED: ROCURONIUM 50 MG/5 ML VIAL ONE (05:56)
[2017-09-23] MEDS ORDERED: ETOMIDATE 20 MG/10 ML VIAL ONE (05:56)
[2017-09-23] MEDS ORDERED: ONDANSETRON 4 MG/2 ML VIAL ONE (05:56)
[2017-09-23] MEDS ORDERED: ATROPINE SULFATE 1 MG/ML VIAL ONE (05:57)
[2017-09-23] MEDS ORDERED: NEOSTIGMINE METHYLSULFATE 3 MG/3 ML SYR ONE (05:57)
[2017-09-23] MEDS ORDERED: ONDANSETRON DISINTEGRATING 4 MG TAB ONE (06:58)
[2017-09-23] MEDS ORDERED: CITRIC ACID/SODIUM CITRATE 30 ML UDCUP ONE (06:59)
[2017-09-23] MEDS ORDERED: THEOPHYLLINE ORAL SOLUTION 80 MG/15 ML UDCUP ONE (06:59)
[2017-09-23] MEDS: LORazepam 1 MG TAB PO SCH ×2 (13:36→19:17)
[2017-09-23] MEDS: LEVOTHYROXINE 100 MCG TAB PO SCH (13:37)
[2017-09-23] MEDS: PSYLLIUM METAMUCIL 1 PKT PO SCH (13:56)
[2017-09-23] MEDS: POLYETHYLENE GLYCOL 3350 17 GM PKT PO SCH (13:56)
[2017-09-23] MEDS: SCOPOLAMINE HYDROBROMIDE 1 MG/3 DAYS PATCH TD SCH (15:48)
[2017-09-23] MEDS: PATCH REMOVAL 1 EA PATCH TD SCH (15:49)
--- NOTE | 2017-09-23 16:31 | SOAPPROG ---
SOAP Progress Note Assessment/Plan: Assessment: Plan: 09/18/17 14:58 No improvement yet. CCM. 09/19/17 07:21 Some improvement noted. Will CCM inc: acute course ECT and holding meds. Will restart meds when pt has largely responded to ECT to avoid interfering with the treatments or contributing to confusion (lithium.) 09/22/17 18:50 Remaiuns psychotic CCM. 09/22/17 18:52 Catatonic excitement: some improvement. CCM. 09/23/17 16:31 Catatonic excitement: Slow improvement. CCM. Subjective: Pt seen, discussed with staff. Agitated, aggressive this morning. Resistive to interventions and treatment. REmains disorganized, agitated, hyperverbal. Did not sleep last night. Underwent bilateral ECT without complication. Objective: Vital Signs Temp Pulse Resp BP Pulse Ox 36.9 C 89 16 101/83 H 99 09/23/17 08:53 09/23/17 08:53 09/23/17 08:53 09/23/17 08:53 09/23/17 08:53 Laboratory Results 09/18/17 15:10 MSE: Disheveled, agitated, aggressive - throws objects at staff, grabs staffs' arms. Yelling and swearing. Affect is o/w angry, labile. Speech is loud, continuous/voluminous, mumbled at times. TP disorganized, tangential. TC reveals paranoia, "You're trying to kill me", delusional belief she is . - Time Spent With Patient Time Spent With Patient: 35" ICD10 Worksheet Patient Problems: Problems Problem Status Onset Bipolar 1 disorder Acute Altered mental status Active Bipolar disorder Active
[2017-09-23] MEDS: LITHIUM CARBONATE 300 MG CAP PO SCH (19:18)
[2017-09-23] MEDS: cloZAPine 100 MG TAB PO SCH (19:18)
[2017-09-23] MEDS: ZOLPIDEM TARTRATE 5 MG TAB PO PRN (22:46)
[2017-09-24] MEDS: LORazepam 1 MG TAB PO SCH ×2 (08:30→16:49)
[2017-09-24] MEDS: POLYETHYLENE GLYCOL 3350 17 GM PKT PO SCH (08:30)
[2017-09-24] MEDS: LITHIUM CARBONATE 300 MG CAP PO SCH ×2 (08:30→16:49)
[2017-09-24] MEDS: PSYLLIUM METAMUCIL 1 PKT PO SCH (08:37)
[2017-09-24] MEDS ORDERED: LORazepam 1 MG TAB PO ONE (10:45)
[2017-09-24] MEDS: LEVOTHYROXINE 100 MCG TAB PO SCH ×2 (10:47→10:54)
--- NOTE | 2017-09-24 17:18 | SOAPPROG ---
SOAP Progress Note Assessment/Plan: Assessment: Plan: 09/18/17 14:58 No improvement yet. CCM. 09/19/17 07:21 Some improvement noted. Will CCM inc: acute course ECT and holding meds. Will restart meds when pt has largely responded to ECT to avoid interfering with the treatments or contributing to confusion (lithium.) 09/22/17 18:50 Remaiuns psychotic CCM. 09/22/17 18:52 Catatonic excitement: some improvement. CCM. 09/23/17 16:31 Catatonic excitement: Slow improvement. CCM. 09/24/17 17:18 Catatonia: Continued slow improvement. CCM. Subjective: Pt seen, discussed with staff. Remains agitated, pressured, intrusive. Did not sleep again last night after sleeping for a total of about six hours following ECT. Given a one-time dose of Ativan 2mg with good effect. Able to go to group after that. Compliant with PO meds. Objective: Vital Signs Temp Pulse Resp BP Pulse Ox 37 C 108 H 20 121/85 H 98 09/23/17 16:00 09/24/17 09:30 09/24/17 09:30 09/24/17 09:30 09/24/17 09:30 Laboratory Results 09/18/17 15:10 MSE: Agitated, pressured, shouting. Affect is labile, irritable. TP is disorganized. TC reveals bizarre thoughts and statements. Recognizes me, able to engage and appreciate humor briefly. - Time Spent With Patient Time Spent With Patient: 25" ICD10 Worksheet Patient Problems: Problems Problem Status Onset Bipolar 1 disorder Acute Altered mental status Active Bipolar disorder Active
[2017-09-24] MEDS: cloZAPine 100 MG TAB PO SCH (18:39)
[2017-09-24] MEDS: ZOLPIDEM TARTRATE 5 MG TAB PO SCH ×3 (19:47→23:09)
[2017-09-25] MEDS ORDERED: ONDANSETRON 4 MG/2 ML VIAL ONE (05:18)
[2017-09-25] MEDS ORDERED: KETOROLAC 30 MG/1 ML SDV ONE (05:18)
[2017-09-25] MEDS ORDERED: MIDAZOLAM 2 MG/2 ML VIAL ONE (05:18)
[2017-09-25] MEDS ORDERED: fentaNYL 100 MCG/2 ML INJ ONE (05:18)
[2017-09-25] MEDS ORDERED: LIDOCAINE 2% 5 ML SDV ONE (05:18)
[2017-09-25] MEDS ORDERED: GLYCOPYRROLATE 0.2 MG/1 ML VIAL ONE (05:18)
[2017-09-25] MEDS ORDERED: ETOMIDATE 20 MG/10 ML VIAL ONE (05:19)
[2017-09-25] MEDS ORDERED: LABETALOL HCL 5 MG/ML 20 ML MDV ONE (05:19)
[2017-09-25] MEDS ORDERED: ATROPINE SULFATE 1 MG/ML VIAL ONE (05:20)
[2017-09-25] MEDS ORDERED: NEOSTIGMINE METHYLSULFATE 3 MG/3 ML SYR ONE (05:20)
[2017-09-25] MEDS ORDERED: ROCURONIUM 50 MG/5 ML VIAL ONE (05:20)
[2017-09-25] MEDS ORDERED: THEOPHYLLINE ORAL SOLUTION 80 MG/15 ML UDCUP ONE (05:31)
[2017-09-25] MEDS ORDERED: CITRIC ACID/SODIUM CITRATE 30 ML UDCUP ONE (05:55)
[2017-09-25] MEDS ORDERED: ONDANSETRON DISINTEGRATING 4 MG TAB ONE (05:55)
[2017-09-25 07:51] LABS: HEMATOCRIT 34.3 % (38.0-47.0); HEMOGLOBIN 10.8 g/dL (12.6-16.3); MEAN CELL HEMOGLOBIN 29.9 pg (27.9-34.1); MEAN CELL HEMOGLOBIN CONCENTR. 31.5 g/dL (32.4-36.7); RED BLOOD CELL COUNT 3.61 10^6/uL (4.18-5.33); RED CELL DISTRIBUTION WIDTH 13.4 % (11.5-15.2)
[2017-09-25] MEDS: POLYETHYLENE GLYCOL 3350 17 GM PKT PO SCH (08:33)
[2017-09-25] MEDS: LORazepam 1 MG TAB PO SCH ×2 (08:33→17:12)
[2017-09-25] MEDS: PSYLLIUM METAMUCIL 1 PKT PO SCH (08:33)
[2017-09-25] MEDS: LITHIUM CARBONATE 300 MG CAP PO SCH ×2 (08:33→20:32)
[2017-09-25] MEDS: LEVOTHYROXINE 100 MCG TAB PO SCH (10:29)
--- NOTE | 2017-09-25 11:35 | SOAPPROG ---
SOAP Progress Note Assessment/Plan: Assessment: Plan: 09/18/17 14:58 No improvement yet. CCM. 09/19/17 07:21 Some improvement noted. Will CCM inc: acute course ECT and holding meds. Will restart meds when pt has largely responded to ECT to avoid interfering with the treatments or contributing to confusion (lithium.) 09/22/17 18:50 Remaiuns psychotic CCM. 09/22/17 18:52 Catatonic excitement: some improvement. CCM. 09/23/17 16:31 Catatonic excitement: Slow improvement. CCM. 09/24/17 17:18 Catatonia: Continued slow improvement. CCM. 09/25/17 11:35 Catatonia: Continued improvement. CCM. Subjective: Pt seen, discussed with staff. More cooperative this morning but remains quite agitated. Underwent ECT this morning without complication. Slept through the night with addition of trazodone. Objective: Vital Signs Temp Pulse Resp BP Pulse Ox 36.6 C 115 H 16 128/81 H 95 09/25/17 10:38 09/25/17 10:38 09/25/17 10:38 09/25/17 10:38 09/25/17 10:38 Laboratory Results 09/25/17 06:50 - Time Spent With Patient Time Spent With Patient: 35" ICD10 Worksheet Patient Problems: Problems Problem Status Onset Bipolar 1 disorder Acute Altered mental status Active Bipolar disorder Active
[2017-09-25 11:43] LABS: PLATELET ESTIMATE ADEQUATE (ADEQ)
[2017-09-25] MEDS: PHENOL 177 ML THROAT SPRAY PO PRN (17:15)
[2017-09-25] MEDS: cloZAPine 100 MG TAB PO SCH (20:31)
[2017-09-25] MEDS: ZOLPIDEM TARTRATE 5 MG TAB PO SCH (20:32)
[2017-09-26] MEDS: LITHIUM CARBONATE 300 MG CAP PO SCH ×2 (08:47→18:48)
[2017-09-26] MEDS: POLYETHYLENE GLYCOL 3350 17 GM PKT PO SCH (08:47)
[2017-09-26] MEDS: LORazepam 1 MG TAB PO SCH ×2 (08:48→18:09)
[2017-09-26] MEDS: LEVOTHYROXINE 100 MCG TAB PO SCH (08:48)
[2017-09-26] MEDS: PSYLLIUM METAMUCIL 1 PKT PO SCH (09:26)
--- NOTE | 2017-09-26 13:58 | SOAPPROG ---
SOAP Progress Note Assessment/Plan: Assessment: Per Dr. Gerber's notes: 09/22/17 18:52 Catatonic excitement: some improvement. [facility]. 09/23/17 16:31 Catatonic excitement: Slow improvement. CCM. 09/24/17 17:18 Catatonia: Continued slow improvement. [facility]. 09/25/17 11:35 Catatonia: Continued improvement. [facility]. 09/26/17 13:54 1. Patient continues to have catatonic excitement. 2. CCM - will need further ECT Subjective: Met with patient, reviewed chart and d/w staff. Patient has extreme catatonic excitability, rambling speech, constant movement, restlessness. She talks in constant stream of loose associations and nonsense. Her came to visit for lunch and patient never stopped moving. tried to hug patient and she wouldn't stand still. Objective: Vital Signs Temp Pulse Resp BP Pulse Ox 36.1 C 111 H 14 112/71 93 09/25/17 16:00 09/26/17 05:19 09/26/17 05:19 09/26/17 05:19 09/26/17 05:19 Laboratory Results 09/25/17 06:50 MSE: Affect: Labile Mood: No response TP: Disorganized, loose, illogical TC: No SI/HI, no AH/VH Insight/Judgment: Impaired - Time Spent With Patient Time Spent With Patient: 10" - Pending Discharge Pending Discharge Within 24 Hours: No Pending Discharge Within 48 Hours: No ICD10 Worksheet Patient Problems: Problems Problem Status Onset Bipolar 1 disorder Acute Altered mental status Active Bipolar disorder Active
[2017-09-26] MEDS: SCOPOLAMINE HYDROBROMIDE 1 MG/3 DAYS PATCH TD SCH (14:47)
[2017-09-26] MEDS: PATCH REMOVAL 1 EA PATCH TD SCH (14:50)
[2017-09-26] MEDS: cloZAPine 100 MG TAB PO SCH (18:47)
[2017-09-26] MEDS: ZOLPIDEM TARTRATE 5 MG TAB PO SCH (18:50)
[2017-09-27] MEDS: POLYETHYLENE GLYCOL 3350 17 GM PKT PO SCH (08:45)
[2017-09-27] MEDS: LEVOTHYROXINE 100 MCG TAB PO SCH (08:46)
[2017-09-27] MEDS: LITHIUM CARBONATE 300 MG CAP PO SCH ×2 (08:46→16:54)
[2017-09-27] MEDS: LORazepam 1 MG TAB PO SCH ×2 (08:46→16:54)
--- NOTE | 2017-09-27 13:14 | SOAPPROG ---
SOAP Progress Note Assessment/Plan: Assessment: Per Dr. Gerber's notes: 09/22/17 18:52 Catatonic excitement: some improvement. [facility]. 09/23/17 16:31 Catatonic excitement: Slow improvement. CCM. 09/24/17 17:18 Catatonia: Continued slow improvement. CCM. 09/25/17 11:35 Catatonia: Continued improvement. CCM. 09/26/17 13:54 1. Patient continues to have catatonic excitement. 2. CCM - will need further ECT 09/27/17 13:10 1. CCM - slightly less excitable today 2. Slept 6.75 hrs last night which is significant increase. Subjective: Met with patient and d/w staff. Spoke to patient as she was moving around unit, she refused to sit down and MD could not carry on conversation. She is still highly excitable, but there is some slight decrease in rapidity of speech and hyperkinetic movements. She spent some time watching a movie in AM with staff which was the longest she stayed in one place since admission. Objective: Vital Signs Temp Pulse Resp BP Pulse Ox 36.6 C 84 16 122/58 H 94 09/27/17 00:30 09/27/17 00:30 09/27/17 00:30 09/27/17 00:30 09/27/17 00:30 Laboratory Results 09/25/17 06:50 MSE: Affect: Elevated Mood: "Good" TP: Tangential, disorganized, illogical TC : No SI/HI, no AH/VH Insight/Judgment: Impaired - Time Spent With Patient Time Spent With Patient: 10" - Pending Discharge Pending Discharge Within 24 Hours: No Pending Discharge Within 48 Hours: No ICD10 Worksheet Patient Problems: Problems Problem Status Onset Bipolar 1 disorder Acute Altered mental status Active Bipolar disorder Active
[2017-09-27] MEDS: PSYLLIUM METAMUCIL 1 PKT PO SCH (13:31)
[2017-09-27] MEDS: cloZAPine 100 MG TAB PO SCH (19:49)
[2017-09-27] MEDS: ZOLPIDEM TARTRATE 5 MG TAB PO SCH (19:49)
[2017-09-28] MEDS ORDERED: CITRIC ACID/SODIUM CITRATE 30 ML UDCUP PO ONE (05:00)
[2017-09-28] MEDS ORDERED: NS 1,000 ML IV ONE (05:00)
[2017-09-28] MEDS ORDERED: LIDOCAINE 2% 5 ML SDV ID ONE (05:00)
[2017-09-28] MEDS ORDERED: ONDANSETRON DISINTEGRATING 4 MG TAB PO ONE (05:00)
[2017-09-28] MEDS ORDERED: THEOPHYLLINE ORAL SOLUTION 80 MG/15 ML UDCUP PO ONE (05:00)
[2017-09-28] MEDS ORDERED: fentaNYL 100 MCG/2 ML INJ ONE (05:28)
[2017-09-28] MEDS ORDERED: MIDAZOLAM 2 MG/2 ML VIAL ONE (05:28)
[2017-09-28] MEDS ORDERED: ETOMIDATE 20 MG/10 ML VIAL ONE (05:29)
[2017-09-28] MEDS ORDERED: KETOROLAC 30 MG/1 ML SDV ONE (05:29)
[2017-09-28] MEDS ORDERED: LABETALOL HCL 5 MG/ML 20 ML MDV ONE (05:29)
[2017-09-28] MEDS ORDERED: GLYCOPYRROLATE 0.2 MG/1 ML VIAL ONE (05:29)
[2017-09-28] MEDS ORDERED: ONDANSETRON 4 MG/2 ML VIAL ONE (05:29)
[2017-09-28] MEDS ORDERED: LIDOCAINE 2% 5 ML SDV ONE (05:29)
[2017-09-28] MEDS ORDERED: ROCURONIUM 50 MG/5 ML VIAL ONE (05:30)
[2017-09-28] MEDS ORDERED: ATROPINE SULFATE 1 MG/ML VIAL ONE (05:31)
[2017-09-28] MEDS ORDERED: NEOSTIGMINE METHYLSULFATE 3 MG/3 ML SYR ONE (05:31)
[2017-09-28] MEDS ORDERED: CITRIC ACID/SODIUM CITRATE 30 ML UDCUP ONE (06:04)
[2017-09-28] MEDS ORDERED: ONDANSETRON DISINTEGRATING 4 MG TAB ONE (06:04)
[2017-09-28] MEDS ORDERED: SCOPOLAMINE HYDROBROMIDE 1 MG/3 DAYS PATCH TD ONE (06:16)
[2017-09-28] MEDS: LEVOTHYROXINE 100 MCG TAB PO SCH (08:00)
[2017-09-28] MEDS: LORazepam 1 MG TAB PO SCH ×2 (08:00→19:50)
[2017-09-28] MEDS: LITHIUM CARBONATE 300 MG CAP PO SCH ×2 (08:00→19:46)
[2017-09-28] MEDS: POLYETHYLENE GLYCOL 3350 17 GM PKT PO SCH (08:01)
[2017-09-28] MEDS: PSYLLIUM METAMUCIL 1 PKT PO SCH (08:07)
--- NOTE | 2017-09-28 17:16 | SOAPPROG ---
SOAP Progress Note Assessment/Plan: Assessment: Plan: 09/18/17 14:58 No improvement yet. CCM. 09/19/17 07:21 Some improvement noted. Will CCM inc: acute course ECT and holding meds. Will restart meds when pt has largely responded to ECT to avoid interfering with the treatments or contributing to confusion (lithium.) 09/22/17 18:50 Remaiuns psychotic CCM. 09/22/17 18:52 Catatonic excitement: some improvement. CCM. 09/23/17 16:31 Catatonic excitement: Slow improvement. CCM. 09/24/17 17:18 Catatonia: Continued slow improvement. CCM. 09/25/17 11:35 Catatonia: Continued improvement. CCM. 09/28/17 17:16 Catatonia: Slow improvement. Court order granted. [facility] with continued titration of Clozaril. Subjective: Pt seen, discussed with staff. Agitated, disorganized, rambling this morning. Insulting towards staff with some verbal aggression. Underwent ECT without complication. I attended court hearing for court-ordered ECT and the petition was granted. Objective: Vital Signs Temp Pulse Resp BP Pulse Ox 37.2 C 104 H 16 111/67 94 09/28/17 07:30 09/28/17 11:07 09/28/17 11:00 09/28/17 10:00 09/28/17 11:07 Laboratory Results 09/25/17 06:50 MSE: Agitated, hyperverbal, physically clinging to me. Incessantly talking, insisting to tell me about the [employer] among other movies. Affect is labile. Mood is "bad." TP disorganized. TC reveals disorganized, bizarre thoughts. - Time Spent With Patient Time Spent With Patient: 35" ICD10 Worksheet Patient Problems: Problems Problem Status Onset Bipolar 1 disorder Acute Altered mental status Active Bipolar disorder Active
[2017-09-28] MEDS: cloZAPine 100 MG TAB PO SCH (19:45)
[2017-09-28] MEDS: ZOLPIDEM TARTRATE 5 MG TAB PO SCH (20:00)
[2017-09-29] MEDS: POLYETHYLENE GLYCOL 3350 17 GM PKT PO SCH (08:29)
[2017-09-29] MEDS: LITHIUM CARBONATE 300 MG CAP PO SCH ×2 (08:29→17:53)
[2017-09-29] MEDS: LEVOTHYROXINE 100 MCG TAB PO SCH (08:29)
[2017-09-29] MEDS: LORazepam 1 MG TAB PO SCH ×2 (08:29→17:55)
[2017-09-29] MEDS: PSYLLIUM METAMUCIL 1 PKT PO SCH (09:21)
[2017-09-29] MEDS ORDERED: LORazepam 1 MG TAB PO ONE (11:09)
--- NOTE | 2017-09-29 13:51 | SOAPPROG ---
SOAP Progress Note Assessment/Plan: Assessment: Plan: 09/18/17 14:58 No improvement yet. CCM. 09/19/17 07:21 Some improvement noted. Will CCM inc: acute course ECT and holding meds. Will restart meds when pt has largely responded to ECT to avoid interfering with the treatments or contributing to confusion (lithium.) 09/22/17 18:50 Remaiuns psychotic CCM. 09/22/17 18:52 Catatonic excitement: some improvement. CCM. 09/23/17 16:31 Catatonic excitement: Slow improvement. CCM. 09/24/17 17:18 Catatonia: Continued slow improvement. CCM. 09/25/17 11:35 Catatonia: Continued improvement. CCM. 09/28/17 17:16 Catatonia: Slow improvement. Court order granted. [facility] with continued titration of Clozaril. 09/29/17 13:55 Catatonia. remains quite ill. I reviewed pt's past treatment in 2011 when she was in a similar state and she required 18 acute treatments prior to transfer to SNF to continue outpatient ECT. She has had 7 so far in this acute course. CCM. Subjective: Pt seen, discussed with staff. Remains agitated, pressured, hyperverbal. She accosts me loudly demands that I hold a roll of toilet paper, a journal and a puzzle book. She is redirectible, but does not calm down in the hour of my observation. Continues to require nearly constant staff redirection. Compliant with meds. Slept five hours last evening and night. Objective: Vital Signs Temp Pulse Resp BP Pulse Ox 36.7 C 104 H 16 130/60 H 94 09/29/17 00:30 09/28/17 11:07 09/28/17 11:00 09/29/17 00:30 09/28/17 11:07 Laboratory Results 09/25/17 06:50 MSE: Disheveled, has not bathed. Agitated, hyperverbal, hyperkinetic. Able to engage, maintain eye contact and address me by name. Affect is labile, irritable, sarcastic - answers several questions by demonstratively saying, "Duh !" TP disorganized, tangential. Able to give brief appropriate answers to questions. TC reveals continued DANIELA, odd statements. - Time Spent With Patient Time Spent With Patient: 25" ICD10 Worksheet Patient Problems: Problems Problem Status Onset Bipolar 1 disorder Acute Altered mental status Active Bipolar disorder Active
[2017-09-29] MEDS: SCOPOLAMINE HYDROBROMIDE 1 MG/3 DAYS PATCH TD SCH (14:41)
[2017-09-29] MEDS: PATCH REMOVAL 1 EA PATCH TD SCH (15:50)
[2017-09-29] MEDS: ZOLPIDEM TARTRATE 5 MG TAB PO SCH (17:53)
[2017-09-29] MEDS: cloZAPine 100 MG TAB PO SCH (17:54)
[2017-09-30] MEDS ORDERED: THEOPHYLLINE ORAL SOLUTION 80 MG/15 ML UDCUP PO ONE (05:00)
[2017-09-30] MEDS ORDERED: MIDAZOLAM 2 MG/2 ML VIAL ONE (06:11)
[2017-09-30] MEDS ORDERED: KETOROLAC 30 MG/1 ML SDV ONE (06:11)
[2017-09-30] MEDS ORDERED: fentaNYL 100 MCG/2 ML INJ ONE (06:11)
[2017-09-30] MEDS ORDERED: ONDANSETRON 4 MG/2 ML VIAL ONE (06:12)
[2017-09-30] MEDS ORDERED: LABETALOL HCL 5 MG/ML 20 ML MDV ONE (06:12)
[2017-09-30] MEDS ORDERED: ETOMIDATE 20 MG/10 ML VIAL ONE (06:12)
[2017-09-30] MEDS ORDERED: GLYCOPYRROLATE 0.2 MG/1 ML VIAL ONE (06:12)
[2017-09-30] MEDS ORDERED: ROCURONIUM 50 MG/5 ML VIAL ONE (06:12)
[2017-09-30] MEDS ORDERED: NEOSTIGMINE METHYLSULFATE 3 MG/3 ML SYR ONE (06:13)
[2017-09-30] MEDS ORDERED: ATROPINE SULFATE 1 MG/ML VIAL ONE (06:13)
[2017-09-30] MEDS ORDERED: ONDANSETRON DISINTEGRATING 4 MG TAB ONE (06:26)
[2017-09-30] MEDS ORDERED: CITRIC ACID/SODIUM CITRATE 30 ML UDCUP ONE (06:26)
[2017-09-30] MEDS: POLYETHYLENE GLYCOL 3350 17 GM PKT PO SCH (08:55)
[2017-09-30] MEDS: LITHIUM CARBONATE 300 MG CAP PO SCH ×2 (08:55→19:32)
[2017-09-30] MEDS: LORazepam 1 MG TAB PO SCH ×2 (08:55→19:32)
[2017-09-30] MEDS: LEVOTHYROXINE 100 MCG TAB PO SCH (08:55)
[2017-09-30] MEDS: PSYLLIUM METAMUCIL 1 PKT PO SCH (09:08)
[2017-09-30 14:37] LABS: LITHIUM 0.7 mEq/L (0.6-1.2)
--- NOTE | 2017-09-30 17:28 | SOAPPROG ---
SOAP Progress Note Assessment/Plan: Assessment: Plan: 09/18/17 14:58 No improvement yet. CCM. 09/19/17 07:21 Some improvement noted. Will CCM inc: acute course ECT and holding meds. Will restart meds when pt has largely responded to ECT to avoid interfering with the treatments or contributing to confusion (lithium.) 09/22/17 18:50 Remaiuns psychotic CCM. 09/22/17 18:52 Catatonic excitement: some improvement. CCM. 09/23/17 16:31 Catatonic excitement: Slow improvement. CCM. 09/24/17 17:18 Catatonia: Continued slow improvement. CCM. 09/25/17 11:35 Catatonia: Continued improvement. CCM. 09/28/17 17:16 Catatonia: Slow improvement. Court order granted. [facility] with continued titration of Clozaril. 09/29/17 13:55 Catatonia. remains quite ill. I reviewed pt's past treatment in 2011 when she was in a similar state and she required 18 acute treatments prior to transfer to SNF to continue outpatient ECT. She has had 7 so far in this acute course. [facility]. 09/30/17 17:29 Catatonia: Slow improvement. [facility]. Subjective: Pt seen, discussed with staff. Slept over 11 hours last night. Agitated and hyperactive this morning, though not as verbally aggressive or profane as before. She does not resist interventions including accessing her port for the first time since admission. High level of non-goal directed psychomotor activity and constant verbigeration continues. Continues to eat poorly and refuse all hygiene. Took off clothes and attempted to walk around unit this afternoon. Continues to require high level of 1:1 supervision due to intrusive and inappropriate behaviors. Compliant with meds. Objective: Vital Signs Temp Pulse Resp BP Pulse Ox 37.2 C 85 16 116/65 93 09/30/17 07:50 09/30/17 07:50 09/30/17 07:50 09/30/17 07:50 09/30/17 07:50 Laboratory Results 09/25/17 06:50 MSE: Agitated, hyperverbal, disheveled. Affect is labile, irritable. Mood is "bad." TP disorganized. TC reveals poor reality testing, lack of insight into circumstances or surroundings. A&Ox2, though unable to focus on questions. - Time Spent With Patient Time Spent With Patient: 35" ICD10 Worksheet Patient Problems: Problems Problem Status Onset Bipolar 1 disorder Acute Altered mental status Active Bipolar disorder Active
[2017-09-30] MEDS: ZOLPIDEM TARTRATE 5 MG TAB PO SCH (19:32)
[2017-09-30] MEDS: cloZAPine 100 MG TAB PO SCH (19:32)
[2017-10-01] MEDS: LORazepam 1 MG TAB PO SCH ×2 (09:01→17:58)
[2017-10-01] MEDS: POLYETHYLENE GLYCOL 3350 17 GM PKT PO SCH (09:01)
[2017-10-01] MEDS: LITHIUM CARBONATE 300 MG CAP PO SCH ×2 (09:01→17:59)
[2017-10-01] MEDS: PSYLLIUM METAMUCIL 1 PKT PO SCH (10:42)
[2017-10-01] MEDS: LEVOTHYROXINE 100 MCG TAB PO SCH (10:47)
[2017-10-01] MEDS: cloZAPine 100 MG TAB PO SCH (17:57)
[2017-10-01] MEDS: ZOLPIDEM TARTRATE 5 MG TAB PO SCH (17:58)
--- NOTE | 2017-10-01 20:01 | SOAPPROG ---
SOAP Progress Note Assessment/Plan: Assessment: Plan: 09/18/17 14:58 No improvement yet. CCM. 09/19/17 07:21 Some improvement noted. Will CCM inc: acute course ECT and holding meds. Will restart meds when pt has largely responded to ECT to avoid interfering with the treatments or contributing to confusion (lithium.) 09/22/17 18:50 Remaiuns psychotic CCM. 09/22/17 18:52 Catatonic excitement: some improvement. CCM. 09/23/17 16:31 Catatonic excitement: Slow improvement. CCM. 09/24/17 17:18 Catatonia: Continued slow improvement. CCM. 09/25/17 11:35 Catatonia: Continued improvement. CCM. 09/28/17 17:16 Catatonia: Slow improvement. Court order granted. [facility] with continued titration of Clozaril. 09/29/17 13:55 Catatonia. remains quite ill. I reviewed pt's past treatment in 2011 when she was in a similar state and she required 18 acute treatments prior to transfer to SNF to continue outpatient ECT. She has had 7 so far in this acute course. CCM. 09/30/17 17:29 Catatonia: Slow improvement. CCM. 10/01/17 20:01 Cataonia: Continued gradual improvement. CCM. Subjective: Pt seen, discussed with staff. Remains generally agitated, hyperverbal, irritable,oppositional. However, she is more conversant, able to appreciate humor - even obtuse sarcastic humor -, more easily redirectible. No c/o's. REmains intrusvie, pressured, tangentiual. Objective: Vital Signs Temp Pulse Resp BP Pulse Ox 37.2 C 85 16 116/65 93 09/30/17 07:50 09/30/17 07:50 09/30/17 07:50 09/30/17 07:50 09/30/17 07:50 Laboratory Results 09/25/17 06:50 MSE: Better groomed, coop. Agitated, intrusive, pressured. More easily redirected. Knows my name, the name of the hospital, what her treatment is, what her treatment is tomorrow. ICD10 Worksheet Patient Problems: Problems Problem Status Onset Bipolar 1 disorder Acute Altered mental status Active Bipolar disorder Active
[2017-10-02] MEDS ORDERED: CITRIC ACID/SODIUM CITRATE 30 ML UDCUP PO ONE (04:00)
[2017-10-02] MEDS ORDERED: ONDANSETRON DISINTEGRATING 4 MG TAB PO ONE (04:00)
[2017-10-02] MEDS ORDERED: LIDOCAINE 2% 5 ML SDV ID ONE (04:00)
[2017-10-02] MEDS ORDERED: NS 1,000 ML IV ONE (04:00)
[2017-10-02] MEDS ORDERED: MIDAZOLAM 2 MG/2 ML VIAL ONE (05:25)
[2017-10-02] MEDS ORDERED: fentaNYL 100 MCG/2 ML INJ ONE (05:25)
[2017-10-02] MEDS ORDERED: GLYCOPYRROLATE 0.2 MG/1 ML VIAL ONE (05:26)
[2017-10-02] MEDS ORDERED: LIDOCAINE 2% 5 ML SDV ONE (05:26)
[2017-10-02] MEDS ORDERED: ONDANSETRON 4 MG/2 ML VIAL ONE (05:26)
[2017-10-02] MEDS ORDERED: LABETALOL HCL 5 MG/ML 20 ML MDV ONE (05:26)
[2017-10-02] MEDS ORDERED: KETOROLAC 30 MG/1 ML SDV ONE (05:26)
[2017-10-02] MEDS ORDERED: ETOMIDATE 20 MG/10 ML VIAL ONE (05:26)
[2017-10-02] MEDS ORDERED: ROCURONIUM 50 MG/5 ML VIAL ONE (05:27)
[2017-10-02] MEDS ORDERED: ATROPINE SULFATE 1 MG/ML VIAL ONE (05:28)
[2017-10-02] MEDS ORDERED: NEOSTIGMINE METHYLSULFATE 3 MG/3 ML SYR ONE (05:28)
[2017-10-02] MEDS ORDERED: ONDANSETRON DISINTEGRATING 4 MG TAB ONE (06:13)
[2017-10-02] MEDS ORDERED: CITRIC ACID/SODIUM CITRATE 30 ML UDCUP ONE (06:13)
[2017-10-02] MEDS: LITHIUM CARBONATE 300 MG CAP PO SCH ×2 (09:07→20:30)
[2017-10-02] MEDS: LORazepam 1 MG TAB PO SCH ×2 (09:07→20:31)
[2017-10-02] MEDS: POLYETHYLENE GLYCOL 3350 17 GM PKT PO SCH (09:07)
[2017-10-02] MEDS: LEVOTHYROXINE 100 MCG TAB PO SCH (11:00)
[2017-10-02] MEDS: PSYLLIUM METAMUCIL 1 PKT PO SCH (12:52)
[2017-10-02] MEDS: SCOPOLAMINE HYDROBROMIDE 1 MG/3 DAYS PATCH TD SCH (15:43)
[2017-10-02] MEDS: PATCH REMOVAL 1 EA PATCH TD SCH (16:02)
[2017-10-02] MEDS: ZOLPIDEM TARTRATE 5 MG TAB PO SCH (20:30)
[2017-10-02] MEDS: cloZAPine 100 MG TAB PO SCH (20:31)
--- NOTE | 2017-10-02 23:05 | SOAPPROG ---
SOAP Progress Note Assessment/Plan: Assessment: Plan: 09/18/17 14:58 No improvement yet. CCM. 09/19/17 07:21 Some improvement noted. Will CCM inc: acute course ECT and holding meds. Will restart meds when pt has largely responded to ECT to avoid interfering with the treatments or contributing to confusion (lithium.) 09/22/17 18:50 Remaiuns psychotic CCM. 09/22/17 18:52 Catatonic excitement: some improvement. CCM. 09/23/17 16:31 Catatonic excitement: Slow improvement. CCM. 09/24/17 17:18 Catatonia: Continued slow improvement. CCM. 09/25/17 11:35 Catatonia: Continued improvement. CCM. 09/28/17 17:16 Catatonia: Slow improvement. Court order granted. [facility] with continued titration of Clozaril. 09/29/17 13:55 Catatonia. remains quite ill. I reviewed pt's past treatment in 2011 when she was in a similar state and she required 18 acute treatments prior to transfer to SNF to continue outpatient ECT. She has had 7 so far in this acute course. CCM. 09/30/17 17:29 Catatonia: Slow improvement. CCM. 10/01/17 20:01 Cataonia: Continued gradual improvement. CCM. 10/02/17 23:04 Catatonia: Improving. [facility]. Subjective: Pt seen, discussed with staff. Pleasant and smiling this morning when she arrived to ECT. Slept >9 hours. Alert and interactive after ECT. Remains generally agitated, distractible and disorganized, though less irritable. Objective: Vital Signs Temp Pulse Resp BP Pulse Ox 36.9 C 98 97 H 131/61 H 95 10/02/17 09:00 10/02/17 11:00 10/02/17 11:00 10/02/17 10:00 10/02/17 07:44 Laboratory Results 09/25/17 06:50 MSE: Agitated, but more redirectible. Affect is brighter. TP disorganized. TC reveals poor organization. - Time Spent With Patient Time Spent With Patient: 35" ICD10 Worksheet Patient Problems: Problems Problem Status Onset Bipolar 1 disorder Acute Altered mental status Active Bipolar disorder Active
[2017-10-03] MEDS: LITHIUM CARBONATE 300 MG CAP PO SCH ×2 (08:22→20:21)
[2017-10-03] MEDS: LORazepam 1 MG TAB PO SCH ×2 (08:23→20:20)
[2017-10-03] MEDS: POLYETHYLENE GLYCOL 3350 17 GM PKT PO SCH (08:26)
[2017-10-03] MEDS: PSYLLIUM METAMUCIL 1 PKT PO SCH (08:27)
[2017-10-03] MEDS: LEVOTHYROXINE 100 MCG TAB PO SCH (10:50)
--- NOTE | 2017-10-03 12:22 | SOAPPROG ---
SOAP Progress Note Assessment/Plan: Assessment: 42yo CF with severe BMD, manic/psychotic with excited catatonia features related to med noncompliance, history of NMS, now undergoing emergent ECT treatments 10/03/17 15:14 per staff, slept 8hr last night. continues on 1:1, variably redirectable. has had incr self-hygiene issues today. Overall improving slowly/steadily since admission, still disorganized with eating her meals, making piles/smashing food, has not really been eating solids at all recently. continues with affective lability, speech is with brief phrases, single words, overtalkative, disorganized, with disorganized thoughts, tangential, +flight of ideas, rambling, perseverative at times, requiring redirection. "How do I feel ? terrific, I had ECT yesterday, how I feel is not relevant, I shower at night ( burps), I have 4 boods (shows them), and I keep my sunglasses in my alex pack. " Denied SI/HI or any AH/VH. does not appear responding to int stimuli. is oblivious to her intrusiveness w/peers and has irritated some unintentionally but staff redirecting and helping maintain safety. i/j both poor. PLAN: continue with 1:1 staff. cont acute ECT as scheduled, has overall been steadily improving cont current meds. Objective: Vital Signs Temp Pulse Resp BP Pulse Ox 36.9 C 115 H 20 115/53 L 94 10/02/17 09:00 10/03/17 10:37 10/03/17 10:37 10/03/17 10:37 10/03/17 10:37 Laboratory Results 09/25/17 06:50 - Time Spent With Patient Time Spent With Patient: 25min - Pending Discharge Pending Discharge Within 24 Hours: No Pending Discharge Within 48 Hours: No ICD10 Worksheet Patient Problems: Problems Problem Status Onset Bipolar 1 disorder Acute Altered mental status Active Bipolar disorder Active
[2017-10-03] MEDS: cloZAPine 100 MG TAB PO SCH (20:22)
[2017-10-03] MEDS: ZOLPIDEM TARTRATE 5 MG TAB PO SCH (20:22)
[2017-10-04] MEDS: LITHIUM CARBONATE 300 MG CAP PO SCH ×2 (08:42→18:00)
[2017-10-04] MEDS: LORazepam 1 MG TAB PO SCH ×2 (08:42→17:58)
[2017-10-04] MEDS: LEVOTHYROXINE 100 MCG TAB PO SCH (10:30)
[2017-10-04] MEDS: POLYETHYLENE GLYCOL 3350 17 GM PKT PO SCH (10:45)
[2017-10-04] MEDS: PSYLLIUM METAMUCIL 1 PKT PO SCH (10:45)
[2017-10-04] MEDS: cloZAPine 100 MG TAB PO SCH (17:59)
[2017-10-04] MEDS: ZOLPIDEM TARTRATE 5 MG TAB PO SCH (17:59)
--- NOTE | 2017-10-05 03:44 | SOAPPROG ---
SOAP Progress Note Assessment/Plan: Assessment: 42yo CF with severe BMD, manic/psychotic with excited catatonia features related to med noncompliance, history of NMS, now undergoing emergent ECT treatments 10/03/17 15:14 per staff, slept 8hr last night. continues on 1:1, variably redirectable. has had incr self-hygiene issues today. Overall improving slowly/steadily since admission, still disorganized with eating her meals, making piles/smashing food, has not really been eating solids at all recently. continues with affective lability, speech is with brief phrases, single words, overtalkative, disorganized, with disorganized thoughts, tangential, +flight of ideas, rambling, perseverative at times, requiring redirection. "How do I feel ? terrific, I had ECT yesterday, how I feel is not relevant, I shower at night ( burps), I have 4 boods (shows them), and I keep my sunglasses in my alex pack. " Denied SI/HI or any AH/VH. does not appear responding to int stimuli. is oblivious to her intrusiveness w/peers and has irritated some unintentionally but staff redirecting and helping maintain safety. i/j both poor. PLAN: continue with 1:1 staff. cont acute ECT as scheduled, has overall been steadily improving cont current meds. 10/04/17 14:28 slept 5hr. incr responsive to redirection overall, was incontinent of bowel/ bladder overnight. on menses. laxatives held. showered. has been somewhat more irritable this AM and argumentative against redirection by staff but eventually cooperates, also is responding to redirection and limits from certain peers. laughing heartily at children's jokes this afternoon. unable to sit still for interview more than briefly. up walking/pacing without clear direction. talkative, more intelligible, mood "great", +mood lability noted, ranging from pleasant to irritable/challenging to laughing out loud (at jokes), incr irritability may be also in response to incr unit acuity. no si/hi and did not appear responding to int stim. +incr psychom activity, often denied any physical complaints or problems with medications. PLAN: -cont current meds, ECT. -monitor continence, whether b/c disorganized or medical concern ie/UTI, other. -monitor po intake, consider ST for swallow eval or mechanical soft, since staff noting pt avoiding solids. May be too disorganized to eat properly and be risk for aspiration. -discussed having pt be more in group room and try to engage in diff activities there, since several peers feeling irritated w her intrusiveness. -cont 1:1 Objective: Vital Signs Temp Pulse Resp BP Pulse Ox 36.9 C 107 H 16 121/64 H 97 10/02/17 09:00 10/04/17 16:54 10/04/17 16:54 10/04/17 16:54 10/04/17 16:54 Laboratory Results 09/25/17 06:50 - Time Spent With Patient Time Spent With Patient: 35min total - Pending Discharge Pending Discharge Within 24 Hours: No Pending Discharge Within 48 Hours: No ICD10 Worksheet Patient Problems: Problems Problem Status Onset Bipolar 1 disorder Acute Altered mental status Active Bipolar disorder Active
[2017-10-05] MEDS ORDERED: CITRIC ACID/SODIUM CITRATE 30 ML UDCUP PO ONE (05:00)
[2017-10-05] MEDS ORDERED: LIDOCAINE 2% 5 ML SDV ID ONE (05:00)
[2017-10-05] MEDS ORDERED: ONDANSETRON DISINTEGRATING 4 MG TAB PO ONE (05:00)
[2017-10-05] MEDS ORDERED: NS 1,000 ML IV ONE (05:00)
[2017-10-05] MEDS ORDERED: LIDOCAINE 2% 5 ML SDV ONE (05:45)
[2017-10-05] MEDS ORDERED: ONDANSETRON DISINTEGRATING 4 MG TAB ONE (06:03)
[2017-10-05] MEDS ORDERED: CITRIC ACID/SODIUM CITRATE 30 ML UDCUP ONE (06:03)
[2017-10-05] MEDS ORDERED: fentaNYL 100 MCG/2 ML INJ ONE (06:45)
[2017-10-05] MEDS ORDERED: GLYCOPYRROLATE 0.2 MG/1 ML VIAL ONE (06:46)
[2017-10-05] MEDS ORDERED: MIDAZOLAM 2 MG/2 ML VIAL ONE (06:46)
[2017-10-05] MEDS ORDERED: SUGAMMADEX SODIUM 200 MG/2 ML VIAL IVP ONE (06:46)
[2017-10-05] MEDS ORDERED: KETOROLAC 30 MG/1 ML SDV ONE (06:46)
[2017-10-05] MEDS ORDERED: ONDANSETRON 4 MG/2 ML VIAL ONE (06:46)
[2017-10-05] MEDS ORDERED: ETOMIDATE 20 MG/10 ML VIAL ONE (06:47)
[2017-10-05] MEDS ORDERED: ROCURONIUM 50 MG/5 ML VIAL ONE (06:47)
[2017-10-05] MEDS ORDERED: LABETALOL HCL 5 MG/ML 20 ML MDV ONE (06:47)
[2017-10-05] MEDS: LORazepam 1 MG TAB PO SCH ×2 (09:28→20:24)
[2017-10-05] MEDS: LITHIUM CARBONATE 300 MG CAP PO SCH ×2 (09:28→20:23)
[2017-10-05] MEDS: PSYLLIUM METAMUCIL 1 PKT PO SCH (09:29)
[2017-10-05] MEDS: POLYETHYLENE GLYCOL 3350 17 GM PKT PO SCH (09:29)
[2017-10-05] MEDS: LEVOTHYROXINE 100 MCG TAB PO SCH (10:31)
[2017-10-05] MEDS: PROPRANOLOL HCL 20 MG TAB PO SCH ×2 (12:45→20:25)
--- NOTE | 2017-10-05 15:55 | SOAPPROG ---
SOAP Progress Note Assessment/Plan: Assessment: Plan: 09/18/17 14:58 No improvement yet. CCM. 09/19/17 07:21 Some improvement noted. Will CCM inc: acute course ECT and holding meds. Will restart meds when pt has largely responded to ECT to avoid interfering with the treatments or contributing to confusion (lithium.) 09/22/17 18:50 Remaiuns psychotic CCM. 09/22/17 18:52 Catatonic excitement: some improvement. CCM. 09/23/17 16:31 Catatonic excitement: Slow improvement. CCM. 09/24/17 17:18 Catatonia: Continued slow improvement. [facility]. 09/25/17 11:35 Catatonia: Continued improvement. [facility]. 09/28/17 17:16 Catatonia: Slow improvement. Court order granted. [facility] with continued titration of Clozaril. 09/29/17 13:55 Catatonia. remains quite ill. I reviewed pt's past treatment in 2011 when she was in a similar state and she required 18 acute treatments prior to transfer to SNF to continue outpatient ECT. She has had 7 so far in this acute course. [facility]. 09/30/17 17:29 Catatonia: Slow improvement. [facility]. 10/01/17 20:01 Cataonia: Continued gradual improvement. [facility]. 10/02/17 23:04 Catatonia: Improving. [facility]. 10/05/17 15:57 Catatonia/bipolar d/o: SLow improvement. Will increase propranolol to help with continued tachycardia, mild HTN, and possibly impulsiveness. Continue acute course ECT. Staff will continue to encourage PO intake. Subjective: Pt seen, discussed with staff. Bright and talkative this morning. Slept 6.5 hours last night. Offers no c/o's. Interacts better with staff, less antagonistic or rude. Underwent bECT wihtout complication. Slept afterwards for several hours. PO intake remains poor. Staff is trying to encourage eating and use of supplements. She has lost 1.4kg over past week. Objective: Vital Signs Temp Pulse Resp BP Pulse Ox 36.6 C 102 H 15 116/56 L 92 10/05/17 07:43 10/05/17 12:45 10/05/17 10:00 10/05/17 12:45 10/05/17 10:00 Laboratory Results 09/25/17 06:50 MSE: Agitated, verbose. Affect is labile, though not irritable. Mood is "just great." TP tangential. TC reveals some grandiose and bizarre thoughts. - Time Spent With Patient Time Spent With Patient: 35" ICD10 Worksheet Patient Problems: Problems Problem Status Onset Bipolar 1 disorder Acute Altered mental status Active Bipolar disorder Active
[2017-10-05] MEDS: ACETAMINOPHEN 325 MG TAB PO PRN (20:20)
[2017-10-05] MEDS: cloZAPine 100 MG TAB PO SCH (20:24)
[2017-10-05] MEDS: ZOLPIDEM TARTRATE 5 MG TAB PO SCH (20:24)
[2017-10-06] MEDS: POLYETHYLENE GLYCOL 3350 17 GM PKT PO SCH (07:44)
[2017-10-06] MEDS: PSYLLIUM METAMUCIL 1 PKT PO SCH (07:44)
[2017-10-06] MEDS: LORazepam 1 MG TAB PO SCH ×2 (08:18→18:31)
[2017-10-06] MEDS: PROPRANOLOL HCL 20 MG TAB PO SCH ×3 (08:18→18:15)
[2017-10-06] MEDS: LITHIUM CARBONATE 300 MG CAP PO SCH ×2 (08:18→18:14)
[2017-10-06] MEDS: LEVOTHYROXINE 100 MCG TAB PO SCH (11:54)
--- NOTE | 2017-10-06 17:10 | SOAPPROG ---
SOAP Progress Note Assessment/Plan: Assessment: Plan: 09/18/17 14:58 No improvement yet. CCM. 09/19/17 07:21 Some improvement noted. Will CCM inc: acute course ECT and holding meds. Will restart meds when pt has largely responded to ECT to avoid interfering with the treatments or contributing to confusion (lithium.) 09/22/17 18:50 Remaiuns psychotic CCM. 09/22/17 18:52 Catatonic excitement: some improvement. CCM. 09/23/17 16:31 Catatonic excitement: Slow improvement. CCM. 09/24/17 17:18 Catatonia: Continued slow improvement. CCM. 09/25/17 11:35 Catatonia: Continued improvement. CCM. 09/28/17 17:16 Catatonia: Slow improvement. Court order granted. [facility] with continued titration of Clozaril. 09/29/17 13:55 Catatonia. remains quite ill. I reviewed pt's past treatment in 2011 when she was in a similar state and she required 18 acute treatments prior to transfer to SNF to continue outpatient ECT. She has had 7 so far in this acute course. [facility]. 09/30/17 17:29 Catatonia: Slow improvement. [facility]. 10/01/17 20:01 Cataonia: Continued gradual improvement. [facility]. 10/02/17 23:04 Catatonia: Improving. [facility]. 10/05/17 15:57 Catatonia/bipolar d/o: SLow improvement. Will increase propranolol to help with continued tachycardia, mild HTN, and possibly impulsiveness. Continue acute course ECT. Staff will continue to encourage PO intake. 10/06/17 17:10 Catatonia/BAD: Continued improvement. Seems to be gaining momentum. [facility]. Subjective: Pt seen, discussed with staff. Remains generally agitated, though much brighter today, smiling and interactive, not irritable. Discussed brehavioral plan in team meeting and agreed to d/c LOS. Pt has been generally redirectable. Slept well last night. Objective: Vital Signs Temp Pulse Resp BP Pulse Ox 36.6 C 93 18 101/64 94 10/05/17 17:19 10/06/17 08:00 10/06/17 08:00 10/06/17 08:00 10/06/17 08:00 Laboratory Results 09/25/17 06:50 MSE: Moderately agitated, pacing, intrusive. Verbally redirectable. Affect is labile, but brighter. Mood is "bad...just kidding DUH!" TP remains tangential. TC reveals odd thoughts, talks about everything from orange sherbet to puppies to her sister to my . - Time Spent With Patient Time Spent With Patient: 25" ICD10 Worksheet Patient Problems: Problems Problem Status Onset Bipolar 1 disorder Acute Altered mental status Active Bipolar disorder Active
[2017-10-06] MEDS: ZOLPIDEM TARTRATE 5 MG TAB PO SCH (18:14)
[2017-10-06] MEDS: cloZAPine 100 MG TAB PO SCH (18:14)
[2017-10-07] MEDS: PROPRANOLOL HCL 20 MG TAB PO SCH ×4 (04:23→20:48)
[2017-10-07] MEDS ORDERED: ONDANSETRON DISINTEGRATING 4 MG TAB PO ONE (05:00)
[2017-10-07] MEDS ORDERED: CITRIC ACID/SODIUM CITRATE 30 ML UDCUP PO ONE (05:00)
[2017-10-07] MEDS ORDERED: LIDOCAINE 2% 5 ML SDV ID ONE (05:00)
[2017-10-07] MEDS ORDERED: NS 1,000 ML IV ONE (05:00)
[2017-10-07] MEDS ORDERED: LIDOCAINE 2% 5 ML SDV ONE (05:50)
[2017-10-07] MEDS ORDERED: CITRIC ACID/SODIUM CITRATE 30 ML UDCUP ONE (05:55)
[2017-10-07] MEDS ORDERED: ONDANSETRON DISINTEGRATING 4 MG TAB ONE ×2 (05:55→07:43)
[2017-10-07] MEDS ORDERED: SCOPOLAMINE HYDROBROMIDE 1 MG/3 DAYS PATCH TD ONE (06:16)
[2017-10-07] MEDS ORDERED: KETOROLAC 30 MG/1 ML SDV ONE (06:37)
[2017-10-07] MEDS ORDERED: ONDANSETRON 4 MG/2 ML VIAL ONE (06:37)
[2017-10-07] MEDS ORDERED: SUGAMMADEX SODIUM 200 MG/2 ML VIAL IVP ONE (06:37)
[2017-10-07] MEDS ORDERED: fentaNYL 100 MCG/2 ML INJ ONE (06:37)
[2017-10-07] MEDS ORDERED: MIDAZOLAM 2 MG/2 ML VIAL ONE (06:37)
[2017-10-07] MEDS ORDERED: GLYCOPYRROLATE 0.2 MG/1 ML VIAL ONE (06:37)
[2017-10-07] MEDS ORDERED: ROCURONIUM 50 MG/5 ML VIAL ONE (06:38)
[2017-10-07] MEDS ORDERED: ETOMIDATE 20 MG/10 ML VIAL ONE ×2 (06:38→06:41)
[2017-10-07] MEDS ORDERED: LABETALOL HCL 5 MG/ML 20 ML MDV ONE (06:49)
[2017-10-07] MEDS: LORazepam 1 MG TAB PO SCH ×2 (10:38→19:42)
[2017-10-07] MEDS: LITHIUM CARBONATE 300 MG CAP PO SCH ×3 (10:38→20:48)
[2017-10-07] MEDS: LEVOTHYROXINE 100 MCG TAB PO SCH (10:38)
[2017-10-07] MEDS: PSYLLIUM METAMUCIL 1 PKT PO SCH (11:01)
[2017-10-07] MEDS: POLYETHYLENE GLYCOL 3350 17 GM PKT PO SCH (11:01)
--- NOTE | 2017-10-07 17:39 | SOAPPROG ---
SOAP Progress Note Assessment/Plan: Assessment: Plan: 09/18/17 14:58 No improvement yet. CCM. 09/19/17 07:21 Some improvement noted. Will CCM inc: acute course ECT and holding meds. Will restart meds when pt has largely responded to ECT to avoid interfering with the treatments or contributing to confusion (lithium.) 09/22/17 18:50 Remaiuns psychotic CCM. 09/22/17 18:52 Catatonic excitement: some improvement. CCM. 09/23/17 16:31 Catatonic excitement: Slow improvement. CCM. 09/24/17 17:18 Catatonia: Continued slow improvement. CCM. 09/25/17 11:35 Catatonia: Continued improvement. CCM. 09/28/17 17:16 Catatonia: Slow improvement. Court order granted. [facility] with continued titration of Clozaril. 09/29/17 13:55 Catatonia. remains quite ill. I reviewed pt's past treatment in 2011 when she was in a similar state and she required 18 acute treatments prior to transfer to SNF to continue outpatient ECT. She has had 7 so far in this acute course. [facility]. 09/30/17 17:29 Catatonia: Slow improvement. [facility]. 10/01/17 20:01 Cataonia: Continued gradual improvement. [facility]. 10/02/17 23:04 Catatonia: Improving. [facility]. 10/05/17 15:57 Catatonia/bipolar d/o: SLow improvement. Will increase propranolol to help with continued tachycardia, mild HTN, and possibly impulsiveness. Continue acute course ECT. Staff will continue to encourage PO intake. 10/06/17 17:10 Catatonia/BAD: Continued improvement. Seems to be gaining momentum. CCM. 10/07/17 17:39 Catatonia/BAD: Slow improvement. [facility]. Subjective: Pt seen, discussed with staff. Talkative, moderately agitated this morning. Slept well last night. Underwent bECT without complication. PO intake remains poor. Hygiene remains poor also. Able to maintain reasonably during day shift off LOS. Reportedly struggled last evening, however. Objective: Vital Signs Temp Pulse Resp BP Pulse Ox 37.2 C 90 15 106/57 L 98 10/07/17 07:37 10/07/17 09:55 10/07/17 09:55 10/07/17 09:55 10/07/17 09:55 Laboratory Results 09/25/17 06:50 MSE: Disheveled, hyperverbal, hyperactive. Affect is labile, brighter. Mood is "great, but bad." TP generally disorganized. TC reveals no overt psychosis. - Time Spent With Patient Time Spent With Patient: 35" ICD10 Worksheet Patient Problems: Problems Problem Status Onset Bipolar 1 disorder Acute Altered mental status Active Bipolar disorder Active
[2017-10-07] MEDS: cloZAPine 100 MG TAB PO SCH ×2 (19:41→20:47)
[2017-10-07] MEDS: ZOLPIDEM TARTRATE 5 MG TAB PO SCH ×2 (19:42→20:48)
[2017-10-08] MEDS: LITHIUM CARBONATE 300 MG CAP PO SCH ×2 (08:47→18:01)
[2017-10-08] MEDS: LEVOTHYROXINE 100 MCG TAB PO SCH (08:47)
[2017-10-08] MEDS: PROPRANOLOL HCL 20 MG TAB PO SCH ×2 (08:51→18:00)
[2017-10-08] MEDS: POLYETHYLENE GLYCOL 3350 17 GM PKT PO SCH (09:26)
[2017-10-08] MEDS: LORazepam 1 MG TAB PO SCH ×3 (09:26→18:00)
[2017-10-08] MEDS: PSYLLIUM METAMUCIL 1 PKT PO SCH (09:27)
[2017-10-08] MEDS: cloZAPine 100 MG TAB PO SCH (18:00)
[2017-10-08] MEDS: ZOLPIDEM TARTRATE 5 MG TAB PO SCH (18:01)
--- NOTE | 2017-10-08 23:31 | SOAPPROG ---
SOAP Progress Note Assessment/Plan: 10/08/17 23:14 On-call note: Staff called to notify of pt having hit her head on desk around 9:45p in very somnolent state after had urinated in bed and got up and appeared to be as if sleepwalking. clarified fall- pt was sitting on chair, somnolent, as bed sheets being changed , slid off chair onto ground and then hit back of head on desk. initial neuro check reported unremarkable. staff reported pt appeared very sedated, but not clearly different from prior week at nighttime after getting her meds. also, has urinated in bed at night several times over past week. Initial BP check around 10p after returned to bed/sleeping reported as 80s/50s. will recheck when up to move to sleep in dayroom plan: will place on fall precautions and line of sight to sleep in dayroom for tonight , reassess in am d/c ambien for now neuro checks tonight check UA, altho possibly b/c sleeping so deeply, r/o UTI check chem 7 in am to ensure adeq hydration, has reportedly not been taking po well, and on Li since getting labs, add cbc w/diff in am Objective: Vital Signs Temp Pulse Resp BP Pulse Ox 36.4 C 89 14 111/53 L 99 10/08/17 15:51 10/08/17 15:51 10/08/17 15:51 10/08/17 15:51 10/08/17 15:51 Laboratory Results 09/25/17 06:50 - Pending Discharge Pending Discharge Within 24 Hours: No Pending Discharge Within 48 Hours: No ICD10 Worksheet Patient Problems: Problems Problem Status Onset Bipolar 1 disorder Acute Altered mental status Active Bipolar disorder Active
[2017-10-09] MEDS ORDERED: CITRIC ACID/SODIUM CITRATE 30 ML UDCUP ONE (05:38)
[2017-10-09] MEDS ORDERED: ONDANSETRON DISINTEGRATING 4 MG TAB ONE (05:39)
[2017-10-09] MEDS ORDERED: LIDOCAINE 2% 5 ML SDV ONE (05:44)
[2017-10-09] MEDS ORDERED: MIDAZOLAM 2 MG/2 ML VIAL ONE (05:52)
[2017-10-09] MEDS ORDERED: fentaNYL 100 MCG/2 ML INJ ONE (05:52)
[2017-10-09] MEDS ORDERED: KETOROLAC 30 MG/1 ML SDV ONE (05:53)
[2017-10-09] MEDS ORDERED: ONDANSETRON 4 MG/2 ML VIAL ONE (05:54)
[2017-10-09] MEDS ORDERED: GLYCOPYRROLATE 0.2 MG/1 ML VIAL ONE (05:54)
[2017-10-09] MEDS ORDERED: SUGAMMADEX SODIUM 200 MG/2 ML VIAL IVP ONE (05:55)
[2017-10-09] MEDS ORDERED: ETOMIDATE 20 MG/10 ML VIAL ONE (05:55)
[2017-10-09] MEDS ORDERED: LABETALOL HCL 5 MG/ML 20 ML MDV ONE (05:56)
[2017-10-09] MEDS ORDERED: ROCURONIUM 50 MG/5 ML VIAL ONE (05:56)
[2017-10-09 07:50] LABS: ADD DIFF? NO; ADD MORPH? NO; ADD SCAN? NO; ATYPICAL LYMPHOCYTE FLAG 30 (0-99); FRAGMENT RBC FLAG 0 (0-99); HEMATOCRIT 33.4 % (38.0-47.0); HEMOGLOBIN 10.5 g/dL (12.6-16.3); LEFT SHIFT FLG 0 (0-99); LIPEMIA HEMOLYSIS FLAG 80 (0-99); MEAN CELL HEMOGLOBIN CONCENTR. 31.4 g/dL (32.4-36.7); MEAN CELL VOLUME 92.3 fL (81.5-99.8); MEAN PLATELET VOLUME 12.8 fL (8.7-11.7); PLATELET CLUMPS FLAG 20 (0-99); PLATELET COUNT 170 10^3/uL (150-400); RED BLOOD CELL COUNT 3.62 10^6/uL (4.18-5.33); RED CELL DISTRIBUTION WIDTH 13.3 % (11.5-15.2)
[2017-10-09 08:01] LABS: ANION GAP 9 mEq/L (8-16); CALCIUM 9.2 mg/dL (8.5-10.4); CARBON DIOXIDE 25 mEq/l (22-31); CHLORIDE 109 mEq/L (97-110); CREATININE 0.7 mg/dL (0.6-1.0); GLOMERULAR FILTRATION RATE > 60; GLUCOSE 111 mg/dL (70-100); SODIUM 143 mEq/L (134-144)
[2017-10-09 08:09] LABS: COLOR YELLOW; LEUKOCYTE ESTERASE,URINE NEGATIVE (NEGATIVE); NITRITE,URINE NEGATIVE (NEGATIVE)
[2017-10-09] MEDS: POLYETHYLENE GLYCOL 3350 17 GM PKT PO SCH (08:59)
[2017-10-09] MEDS: PSYLLIUM METAMUCIL 1 PKT PO SCH (08:59)
[2017-10-09] MEDS: PROPRANOLOL HCL 20 MG TAB PO SCH ×2 (12:48→20:09)
[2017-10-09] MEDS: LITHIUM CARBONATE 300 MG CAP PO SCH ×2 (12:49→20:09)
[2017-10-09] MEDS: LORazepam 1 MG TAB PO SCH ×2 (12:49→20:08)
[2017-10-09] MEDS: LEVOTHYROXINE 100 MCG TAB PO SCH (14:18)
--- NOTE | 2017-10-09 16:05 | SOAPPROG ---
SOAP Progress Note Assessment/Plan: Assessment: Plan: 09/18/17 14:58 No improvement yet. CCM. 09/19/17 07:21 Some improvement noted. Will CCM inc: acute course ECT and holding meds. Will restart meds when pt has largely responded to ECT to avoid interfering with the treatments or contributing to confusion (lithium.) 09/22/17 18:50 Remaiuns psychotic CCM. 09/22/17 18:52 Catatonic excitement: some improvement. CCM. 09/23/17 16:31 Catatonic excitement: Slow improvement. CCM. 09/24/17 17:18 Catatonia: Continued slow improvement. [facility]. 09/25/17 11:35 Catatonia: Continued improvement. [facility]. 09/28/17 17:16 Catatonia: Slow improvement. Court order granted. [facility] with continued titration of Clozaril. 09/29/17 13:55 Catatonia. remains quite ill. I reviewed pt's past treatment in 2011 when she was in a similar state and she required 18 acute treatments prior to transfer to SNF to continue outpatient ECT. She has had 7 so far in this acute course. [facility]. 09/30/17 17:29 Catatonia: Slow improvement. [facility]. 10/01/17 20:01 Cataonia: Continued gradual improvement. [facility]. 10/02/17 23:04 Catatonia: Improving. [facility]. 10/05/17 15:57 Catatonia/bipolar d/o: SLow improvement. Will increase propranolol to help with continued tachycardia, mild HTN, and possibly impulsiveness. Continue acute course ECT. Staff will continue to encourage PO intake. 10/06/17 17:10 Catatonia/BAD: Continued improvement. Seems to be gaining momentum. [facility]. 10/07/17 17:39 Catatonia/BAD: Slow improvement. [facility]. 10/09/17 16:05 Catatonia/BAD: Continued Slow improvement. [facility]. Subjective: Pt seen, discussed with staff. Remains generally agitated, but improving. Fell from sitting position to floor striking her head without obvious injury. Placed back on 1:1. Today she is animated, but bright. Underwent ECT without complication. Offers no c/o's. Objective: Vital Signs Temp Pulse Resp BP Pulse Ox 36.6 C 107 H 14 104/57 L 96 10/09/17 09:00 10/09/17 09:00 10/09/17 09:00 10/09/17 09:00 10/09/17 09:00 Laboratory Results 10/09/17 06:40 10/09/17 06:40 MSE: Disheveled, agitated. Affect is labile. Mood is "great, no terrible." TP is tangential. TC reveals poor reality testing but improving. - Time Spent With Patient Time Spent With Patient: 35" ICD10 Worksheet Patient Problems: Problems Problem Status Onset Bipolar 1 disorder Acute Altered mental status Active Bipolar disorder Active
[2017-10-09] MEDS: cloZAPine 100 MG TAB PO SCH (20:09)
[2017-10-10] MEDS: PROPRANOLOL HCL 20 MG TAB PO SCH ×2 (08:44→21:30)
[2017-10-10] MEDS: LITHIUM CARBONATE 300 MG CAP PO SCH ×2 (08:45→21:30)
[2017-10-10] MEDS: LORazepam 1 MG TAB PO SCH ×2 (08:45→21:29)
[2017-10-10] MEDS: LEVOTHYROXINE 100 MCG TAB PO SCH (09:10)
[2017-10-10] MEDS: POLYETHYLENE GLYCOL 3350 17 GM PKT PO SCH (10:19)
[2017-10-10] MEDS: PSYLLIUM METAMUCIL 1 PKT PO SCH (10:19)
--- NOTE | 2017-10-10 13:10 | SOAPPROG ---
SOAP Progress Note Assessment/Plan: Assessment: Per Dr. Gerber's notes: 10/06/17 17:10 Catatonia/BAD: Continued improvement. Seems to be gaining momentum. [facility]. 10/07/17 17:39 Catatonia/BAD: Slow improvement. [facility]. 10/09/17 16:05 Catatonia/BAD: Continued Slow improvement. [facility]. 10/10/17 13:07 Plan: 1. [facility] - next scheduled ECT on 10/12/17 Subjective: Met with patient, reviewed chart and d/w staff. Patient is less intrusive, excitable than when this MD last saw her 2 weeks ago. She still comes up to MD and stands very close talking nonsensically, rapidly. She says, "I'm sassy, strong and I can be mean," holding a pink stuffed animal. Patient is much more easily redirected by staff than in past. No SI/HI. Objective: Vital Signs Temp Pulse Resp BP Pulse Ox 36.2 C 82 16 118/53 L 94 10/10/17 06:37 10/10/17 08:44 10/10/17 06:37 10/10/17 08:44 10/10/17 06:37 Laboratory Results 10/09/17 06:40 10/09/17 06:40 MSE: Less intrusive and less excitable. Affect: Elevated, labile Mood: "Good" TP: Disorganized, nonsensical, illogical TC: No SI/HI Insight/Judgment: Impaired - Time Spent With Patient Time Spent With Patient: 20" - Pending Discharge Pending Discharge Within 24 Hours: No Pending Discharge Within 48 Hours: No ICD10 Worksheet Patient Problems: Problems Problem Status Onset Bipolar 1 disorder Acute Altered mental status Active Bipolar disorder Active
[2017-10-10] MEDS: cloZAPine 100 MG TAB PO SCH (21:29)
[2017-10-11] MEDS: LEVOTHYROXINE 100 MCG TAB PO SCH (08:12)
[2017-10-11] MEDS: LITHIUM CARBONATE 300 MG CAP PO SCH ×2 (08:12→17:54)
[2017-10-11] MEDS: PROPRANOLOL HCL 20 MG TAB PO SCH ×2 (08:14→17:56)
[2017-10-11] MEDS: LORazepam 1 MG TAB PO SCH ×2 (08:14→17:55)
[2017-10-11] MEDS: PSYLLIUM METAMUCIL 1 PKT PO SCH (08:50)
[2017-10-11] MEDS: POLYETHYLENE GLYCOL 3350 17 GM PKT PO SCH (08:50)
--- NOTE | 2017-10-11 12:11 | SOAPPROG ---
SOAP Progress Note Assessment/Plan: Assessment: Per Dr. Gerber's notes: 10/06/17 17:10 Catatonia/BAD: Continued improvement. Seems to be gaining momentum. [facility]. 10/07/17 17:39 Catatonia/BAD: Slow improvement. [facility]. 10/09/17 16:05 Catatonia/BAD: Continued Slow improvement. [facility]. 10/10/17 13:07 Plan: 1. [facility] - next scheduled ECT on 10/12/17 10/11/17 12:07 1. Patient still pacing hallways, interrupting conversations between MD and peers. She does, however, respond appropriately when prompted or redirected. 2. [facility] - next ECT tomorrow Subjective: Met with patient and d/w staff. Patient stops MD at least 6 times when passing in the steinberg and asks same question, "Hi, doctor, what's your name?" While MD is speaking with other patients, Daya comes into the room or stops by and interrupts with her own questions or statements. Her speech is nonsensical and demonstrates loose associations. She continues to sleep > 9 hrs at night, but she has been wetting her bed (possibly d/t sedation from nighttime meds). Last night she wet bed x 2 and when she gets up and staff helps change the sheets, she is unsteady on her feet. Staff guide patient to chair and monitor until she gets back in bed. There have been no falls over the weekend. Objective: Vital Signs Temp Pulse Resp BP Pulse Ox 36.7 C 82 16 93/46 L 94 10/10/17 17:30 10/11/17 06:17 10/11/17 06:17 10/11/17 06:17 10/10/17 17:30 Laboratory Results 10/09/17 06:40 10/09/17 06:40 MSE: Hyperverbal, intrusive, excitable. Affect: Elevated Mood: "Sassy" TP: Disorganized, nonsensical, DANIELA TC: No SI/HI, No AH/VH Insight/Judgment: Impaired - Time Spent With Patient Time Spent With Patient: 20" - Pending Discharge Pending Discharge Within 24 Hours: No Pending Discharge Within 48 Hours: No ICD10 Worksheet Patient Problems: Problems Problem Status Onset Bipolar 1 disorder Acute Altered mental status Active Bipolar disorder Active
[2017-10-11] MEDS: cloZAPine 100 MG TAB PO SCH (17:55)
[2017-10-11] MEDS ORDERED: ZOLPIDEM TARTRATE 5 MG TAB PO ONE (20:00)
[2017-10-12] MEDS ORDERED: CITRIC ACID/SODIUM CITRATE 30 ML UDCUP PO ONE (04:00)
[2017-10-12] MEDS ORDERED: LIDOCAINE 2% 5 ML SDV ID ONE (04:00)
[2017-10-12] MEDS ORDERED: NS 1,000 ML IV ONE (04:00)
[2017-10-12] MEDS ORDERED: ONDANSETRON DISINTEGRATING 4 MG TAB PO ONE (04:00)
[2017-10-12] MEDS: PROPRANOLOL HCL 20 MG TAB PO SCH (05:08)
[2017-10-12] MEDS ORDERED: CITRIC ACID/SODIUM CITRATE 30 ML UDCUP ONE (05:49)
[2017-10-12] MEDS ORDERED: ONDANSETRON DISINTEGRATING 4 MG TAB ONE (05:49)
[2017-10-12] MEDS ORDERED: LIDOCAINE/PRILOCAINE 1 EACH CRTUBE TP ONE (06:20)
[2017-10-12] MEDS ORDERED: GLYCOPYRROLATE 0.2 MG/1 ML VIAL ONE (06:36)
[2017-10-12] MEDS ORDERED: SUGAMMADEX SODIUM 200 MG/2 ML VIAL IVP ONE (06:36)
[2017-10-12] MEDS ORDERED: ONDANSETRON 4 MG/2 ML VIAL ONE (06:36)
[2017-10-12] MEDS ORDERED: MIDAZOLAM 2 MG/2 ML VIAL ONE (06:36)
[2017-10-12] MEDS ORDERED: fentaNYL 100 MCG/2 ML INJ ONE (06:36)
[2017-10-12] MEDS ORDERED: KETOROLAC 15 MG/1 ML SDV ONE (06:37)
[2017-10-12] MEDS ORDERED: ROCURONIUM 50 MG/5 ML VIAL ONE (06:37)
[2017-10-12] MEDS ORDERED: LABETALOL HCL 5 MG/ML 20 ML MDV ONE (06:45)
[2017-10-12] MEDS ORDERED: ETOMIDATE 20 MG/10 ML VIAL ONE (06:45)
[2017-10-12] MEDS ORDERED: PROPOFOL 200 MG/20 ML VIAL ONE (06:53)
[2017-10-12] MEDS: LITHIUM CARBONATE 300 MG CAP PO SCH ×2 (08:41→20:50)
[2017-10-12] MEDS: LEVOTHYROXINE 100 MCG TAB PO SCH (08:42)
[2017-10-12] MEDS: LORazepam 1 MG TAB PO SCH ×2 (08:42→20:50)
[2017-10-12] MEDS ORDERED: PROPRANOLOL HCL 20 MG TAB PO SCH (10:40)
[2017-10-12] MEDS: PSYLLIUM METAMUCIL 1 PKT PO SCH (12:10)
[2017-10-12] MEDS: POLYETHYLENE GLYCOL 3350 17 GM PKT PO SCH (12:10)
--- NOTE | 2017-10-12 15:23 | SOAPPROG ---
SOAP Progress Note Assessment/Plan: Assessment: Plan: 09/18/17 14:58 No improvement yet. CCM. 09/19/17 07:21 Some improvement noted. Will CCM inc: acute course ECT and holding meds. Will restart meds when pt has largely responded to ECT to avoid interfering with the treatments or contributing to confusion (lithium.) 09/22/17 18:50 Remaiuns psychotic CCM. 09/22/17 18:52 Catatonic excitement: some improvement. [facility]. 09/23/17 16:31 Catatonic excitement: Slow improvement. [facility]. 09/24/17 17:18 Catatonia: Continued slow improvement. [facility]. 09/25/17 11:35 Catatonia: Continued improvement. [facility]. 09/28/17 17:16 Catatonia: Slow improvement. Court order granted. [facility] with continued titration of Clozaril. 09/29/17 13:55 Catatonia. remains quite ill. I reviewed pt's past treatment in 2011 when she was in a similar state and she required 18 acute treatments prior to transfer to SNF to continue outpatient ECT. She has had 7 so far in this acute course. [facility]. 09/30/17 17:29 Catatonia: Slow improvement. [facility]. 10/01/17 20:01 Cataonia: Continued gradual improvement. [facility]. 10/02/17 23:04 Catatonia: Improving. [facility]. 10/05/17 15:57 Catatonia/bipolar d/o: SLow improvement. Will increase propranolol to help with continued tachycardia, mild HTN, and possibly impulsiveness. Continue acute course ECT. Staff will continue to encourage PO intake. 10/06/17 17:10 Catatonia/BAD: Continued improvement. Seems to be gaining momentum. [facility]. 10/07/17 17:39 Catatonia/BAD: Slow improvement. [facility]. 10/09/17 16:05 Catatonia/BAD: Continued Slow improvement. [facility]. 10/12/17 15:23 Catatonia/BAD: Continued improvement. [facility]. Family meeting tomorrow at 1030. Subjective: Pt seen, discussed with staff, chart reviewed. She is activated per usual this morning in ECT. Compliant with staff interventions. Underwent ECT without complication. She interacts reasonably well with me though remains intrusive and impulsive, requiring frequent redirection. Objective: Vital Signs Temp Pulse Resp BP Pulse Ox 36.8 C 95 15 112/54 L 99 10/12/17 07:31 10/12/17 11:05 10/12/17 11:05 10/12/17 11:04 10/12/17 11:05 Laboratory Results 10/09/17 06:40 10/09/17 06:40 MSE: Activated, pressured. Affect is labile, less irritable. Mood is "bad." TP disorganized. TC reveals odd beliefs, possible paranoia with continued mention of a man with a gun. - Time Spent With Patient Time Spent With Patient: 35" ICD10 Worksheet Patient Problems: Problems Problem Status Onset Bipolar 1 disorder Acute Altered mental status Active Bipolar disorder Active
[2017-10-12] MEDS: cloZAPine 100 MG TAB PO SCH (20:50)
[2017-10-12] MEDS: ZOLPIDEM TARTRATE 5 MG TAB PO PRN (20:50)
[2017-10-12] MEDS: PROPRANOLOL HCL 10 MG TAB PO SCH (20:51)
[2017-10-13] MEDS: LORazepam 1 MG TAB PO SCH ×2 (08:25→17:10)
[2017-10-13] MEDS: LITHIUM CARBONATE 300 MG CAP PO SCH ×2 (08:25→17:09)
[2017-10-13] MEDS: LEVOTHYROXINE 100 MCG TAB PO SCH (08:26)
[2017-10-13] MEDS: PROPRANOLOL HCL 10 MG TAB PO SCH ×2 (08:26→17:10)
[2017-10-13] MEDS: POLYETHYLENE GLYCOL 3350 17 GM PKT PO SCH (08:36)
[2017-10-13] MEDS: PSYLLIUM METAMUCIL 1 PKT PO SCH (08:36)
--- NOTE | 2017-10-13 16:30 | SOAPPROG ---
SOAP Progress Note Assessment/Plan: Assessment: Plan: 09/18/17 14:58 No improvement yet. [facility]. 09/19/17 07:21 Some improvement noted. Will [facility]CM inc: acute course ECT and holding meds. Will restart meds when pt has largely responded to ECT to avoid interfering with the treatments or contributing to confusion (lithium.) 09/22/17 18:50 Remaiuns psychotic CCM. 09/22/17 18:52 Catatonic excitement: some improvement. [facility]. 09/23/17 16:31 Catatonic excitement: Slow improvement. [facility]. 09/24/17 17:18 Catatonia: Continued slow improvement. [facility]. 09/25/17 11:35 Catatonia: Continued improvement. [facility]. 09/28/17 17:16 Catatonia: Slow improvement. Court order granted. [facility] with continued titration of Clozaril. 09/29/17 13:55 Catatonia. remains quite ill. I reviewed pt's past treatment in 2011 when she was in a similar state and she required 18 acute treatments prior to transfer to SNF to continue outpatient ECT. She has had 7 so far in this acute course. [facility]. 09/30/17 17:29 Catatonia: Slow improvement. [facility]. 10/01/17 20:01 [place]: Continued gradual improvement. [facility]. 10/02/17 23:04 Catatonia: Improving. [facility]. 10/05/17 15:57 Catatonia/bipolar d/o: SLow improvement. Will increase propranolol to help with continued tachycardia, mild HTN, and possibly impulsiveness. Continue acute course ECT. Staff will continue to encourage PO intake. 10/06/17 17:10 Catatonia/BAD: Continued improvement. Seems to be gaining momentum. [facility]. 10/07/17 17:39 Catatonia/BAD: Slow improvement. [facility]. 10/09/17 16:05 Catatonia/BAD: Continued Slow improvement. [facility]. 10/12/17 15:23 Catatonia/BAD: Continued improvement. [facility]. Family meeting tomorrow at 1030. 10/13/17 16:33 Catatonia/BAD: Has plateaued over past several days. Will continue ECT, restart VPA on Thursday. Subjective: Pt seen, discussed with staff. Family session held with patient, her father and CC. Discussed plan of care, pt's progress and current status. She remains hyperactive, intrusive, pressured, labile, but clearly improving. Objective: Vital Signs Temp Pulse Resp BP Pulse Ox 36.6 C 107 H 18 122/60 H 96 10/13/17 00:30 10/13/17 08:26 10/12/17 20:48 10/13/17 08:26 10/12/17 20:48 Laboratory Results 10/09/17 06:40 10/09/17 06:40 MSE: Agitated, activated, pressured, verbose. Appears more anxious when and father present (at separate times). Unable to attend to conversation or participate in meeting in any meaningful way. TP disorganized. TC reveals bizarre statements about wanting a dog and her mother hating her so she cant get one. - Time Spent With Patient Time Spent With Patient: 45" ICD10 Worksheet Patient Problems: Problems Problem Status Onset Bipolar 1 disorder Acute Altered mental status Active Bipolar disorder Active
[2017-10-13] MEDS: cloZAPine 100 MG TAB PO SCH (17:10)
[2017-10-14] MEDS: PROPRANOLOL HCL 10 MG TAB PO SCH ×2 (05:28→20:36)
[2017-10-14] MEDS ORDERED: LIDOCAINE/PRILOCAINE 1 EACH CRTUBE TP ONE (05:48)
[2017-10-14] MEDS ORDERED: LIDOCAINE 2% 5 ML SDV ONE (06:02)
[2017-10-14] MEDS ORDERED: CITRIC ACID/SODIUM CITRATE 30 ML UDCUP ONE (06:04)
[2017-10-14] MEDS ORDERED: ONDANSETRON DISINTEGRATING 4 MG TAB ONE (06:04)
[2017-10-14] MEDS ORDERED: fentaNYL 100 MCG/2 ML INJ ONE (06:30)
[2017-10-14] MEDS ORDERED: SUGAMMADEX SODIUM 200 MG/2 ML VIAL IVP ONE (06:31)
[2017-10-14] MEDS ORDERED: MIDAZOLAM 2 MG/2 ML VIAL ONE (06:31)
[2017-10-14] MEDS ORDERED: GLYCOPYRROLATE 0.2 MG/1 ML VIAL ONE (06:31)
[2017-10-14] MEDS ORDERED: ROCURONIUM 50 MG/5 ML VIAL ONE (06:31)
[2017-10-14] MEDS ORDERED: ETOMIDATE 20 MG/10 ML VIAL ONE (06:31)
[2017-10-14] MEDS ORDERED: PROPOFOL 200 MG/20 ML VIAL ONE (06:36)
[2017-10-14] MEDS ORDERED: ONDANSETRON 4 MG/2 ML VIAL ONE (06:36)
[2017-10-14] MEDS ORDERED: KETOROLAC 30 MG/1 ML SDV ONE (06:36)
[2017-10-14] MEDS ORDERED: LABETALOL HCL 5 MG/ML 20 ML MDV ONE (06:36)
[2017-10-14] MEDS ORDERED: CITRIC ACID/SODIUM CITRATE 30 ML UDCUP PO ONE (06:45)
[2017-10-14] MEDS ORDERED: PROMETHAZINE HCL 25 MG TAB PO PRN (06:46)
[2017-10-14] MEDS ORDERED: ONDANSETRON DISINTEGRATING 4 MG TAB PO PRN (06:46)
[2017-10-14] MEDS ORDERED: HYDROCODONE/APAP 5/325 TAB PO PRN (06:46)
--- NOTE | 2017-10-14 07:37 | SOAPPROG ---
SOAP Progress Note Assessment/Plan: Assessment: Bipolar I, manic with psychotic and catatonic features, h/o NMS, develomental delay Plan: Read and appreciate MD notes on Daya. Her catatonic excitement is still present but abating slowly. Agitated, disorganized TPs, pressured speech, random , perseverative TC, nil insight/judgement. Disheveled appearance/dress. Plan Cont acute B ECT. Will hold Li for duration of acute ECT to mitigate cognitive impact with intention to restart immediately upon d/c of 3x/week phase of treatment. Understand plan to restart VPA on Thursday, but will hold its dose--as well as benzo--the hs prior to treatments to allow for more robust treatments. Remains gravely disabled. 10/14/17 07:32 Objective: Vital Signs Temp Pulse Resp BP Pulse Ox 37.2 C 81 20 104/64 93 10/14/17 07:22 10/14/17 05:28 10/14/17 07:22 10/14/17 07:22 10/14/17 07:22 Laboratory Results 10/09/17 06:40 10/09/17 06:40 ICD10 Worksheet Patient Problems: Problems Problem Status Onset Bipolar 1 disorder Acute Altered mental status Active Bipolar disorder Active
[2017-10-14] MEDS: LEVOTHYROXINE 100 MCG TAB PO SCH ×3 (08:33→10:27)
[2017-10-14] MEDS: LORazepam 1 MG TAB PO SCH ×4 (08:33→20:37)
[2017-10-14] MEDS: PSYLLIUM METAMUCIL 1 PKT PO SCH (09:00)
[2017-10-14] MEDS: POLYETHYLENE GLYCOL 3350 17 GM PKT PO SCH (09:00)
[2017-10-14] MEDS: cloZAPine 100 MG TAB PO SCH (20:36)
[2017-10-14] MEDS: ZOLPIDEM TARTRATE 5 MG TAB PO PRN (20:37)
[2017-10-15] MEDS: LORazepam 1 MG TAB PO SCH ×2 (08:49→18:47)
[2017-10-15] MEDS: PROPRANOLOL HCL 10 MG TAB PO SCH ×2 (08:54→17:32)
[2017-10-15] MEDS: POLYETHYLENE GLYCOL 3350 17 GM PKT PO SCH (08:54)
[2017-10-15] MEDS: PSYLLIUM METAMUCIL 1 PKT PO SCH (09:42)
[2017-10-15] MEDS: LEVOTHYROXINE 100 MCG TAB PO SCH (11:03)
--- NOTE | 2017-10-15 15:18 | SOAPPROG ---
SOAP Progress Note Assessment/Plan: Assessment: Bipolar I, manic with psychotic and catatonic features, h/o NMS, develomental delay Plan: Read and appreciate MD notes on Daya. Her catatonic excitement is still present but abating slowly. Agitated, disorganized TPs, pressured speech, random , perseverative TC, nil insight/judgement. Disheveled appearance/dress. Plan Cont acute B ECT. Will hold Li for duration of acute ECT to mitigate cognitive impact with intention to restart immediately upon d/c of 3x/week phase of treatment. Understand plan to restart VPA on Thursday, but will hold its dose--as well as benzo--the hs prior to treatments to allow for more robust treatments. Remains gravely disabled. 10/14/17 07:32 10/15/17 15:15 Met with Daya and her father in presence of Dora Mcneill RN. Daya remains disorganized in speech and behavior, with ceaseless activity which is purposeless and intrusive to staff and peers. Rambling nonsensically. Despite this presentation, father corroborates that the INTENSITY of such symptoms is actually reduced since ECT initiated. Father on board with notion of starting VPA tomorrow. ALthough this med may lead to less intense ECT, its virtues likely outweigh this detriment. Objective: Vital Signs Temp Pulse Resp BP Pulse Ox 36.3 C 83 14 123/58 H 93 10/14/17 08:00 10/14/17 10:15 10/14/17 10:15 10/14/17 10:15 10/14/17 10:15 Laboratory Results 10/09/17 06:40 10/09/17 06:40 ICD10 Worksheet Patient Problems: Problems Problem Status Onset Bipolar 1 disorder Acute Altered mental status Active Bipolar disorder Active
[2017-10-15] MEDS: cloZAPine 100 MG TAB PO SCH (17:32)
[2017-10-16] MEDS ORDERED: CITRIC ACID/SODIUM CITRATE 30 ML UDCUP PO ONE (04:00)
[2017-10-16] MEDS ORDERED: ONDANSETRON DISINTEGRATING 4 MG TAB PO ONE (04:00)
[2017-10-16] MEDS ORDERED: NS 1,000 ML IV ONE (04:00)
[2017-10-16] MEDS ORDERED: LIDOCAINE 2% 5 ML SDV ID ONE (04:00)
[2017-10-16] MEDS: PROPRANOLOL HCL 10 MG TAB PO SCH ×2 (05:19→20:03)
[2017-10-16] MEDS ORDERED: LIDOCAINE 2% 5 ML SDV ONE (05:35)
[2017-10-16] MEDS ORDERED: CITRIC ACID/SODIUM CITRATE 30 ML UDCUP ONE (05:44)
[2017-10-16] MEDS ORDERED: ONDANSETRON DISINTEGRATING 4 MG TAB ONE (05:44)
[2017-10-16] MEDS ORDERED: KETOROLAC 30 MG/1 ML SDV ONE (05:59)
[2017-10-16] MEDS ORDERED: MIDAZOLAM 2 MG/2 ML VIAL ONE (05:59)
[2017-10-16] MEDS ORDERED: ONDANSETRON 4 MG/2 ML VIAL ONE (05:59)
[2017-10-16] MEDS ORDERED: fentaNYL 100 MCG/2 ML INJ ONE (05:59)
[2017-10-16] MEDS ORDERED: SUGAMMADEX SODIUM 200 MG/2 ML VIAL IVP ONE (06:00)
[2017-10-16] MEDS ORDERED: ROCURONIUM 50 MG/5 ML VIAL ONE (06:00)
[2017-10-16] MEDS ORDERED: ETOMIDATE 20 MG/10 ML VIAL ONE (06:00)
[2017-10-16] MEDS ORDERED: GLYCOPYRROLATE 0.2 MG/1 ML VIAL ONE (06:00)
[2017-10-16] MEDS ORDERED: LABETALOL HCL 5 MG/ML 20 ML MDV ONE (06:04)
[2017-10-16] MEDS ORDERED: PROPOFOL 200 MG/20 ML VIAL ONE (06:17)
[2017-10-16] MEDS ORDERED: PROMETHAZINE HCL 25 MG TAB PO PRN (07:00)
[2017-10-16] MEDS ORDERED: HYDROCODONE/APAP 5/325 TAB PO PRN (07:00)
[2017-10-16] MEDS ORDERED: ONDANSETRON DISINTEGRATING 4 MG TAB PO PRN (07:00)
--- NOTE | 2017-10-16 07:07 | SOAPPROG ---
SOAP Progress Note Assessment/Plan: Assessment: Bipolar I, manic with psychotic and catatonic features, h/o NMS, develomental delay Plan: Read and appreciate MD notes on Daya. Her catatonic excitement is still present but abating slowly. Agitated, disorganized TPs, pressured speech, random , perseverative TC, nil insight/judgement. Disheveled appearance/dress. Plan Cont acute B ECT. Will hold Li for duration of acute ECT to mitigate cognitive impact with intention to restart immediately upon d/c of 3x/week phase of treatment. Understand plan to restart VPA on Thursday, but will hold its dose--as well as benzo--the hs prior to treatments to allow for more robust treatments. Remains gravely disabled. 10/14/17 07:32 10/15/17 15:15 Met with Daya and her father in presence of Dora Mcneill RN. Daya remains disorganized in speech and behavior, with ceaseless activity which is purposeless and intrusive to staff and peers. Rambling nonsensically. Despite this presentation, father corroborates that the INTENSITY of such symptoms is actually reduced since ECT initiated. Father on board with notion of starting VPA tomorrow. ALthough this med may lead to less intense ECT, its virtues likely outweigh this detriment. 10/16/17 07:06 Pt still quite disorganized and expansive, unable to sit still or attend for any sustained period. This after 15 acute B ECTs. Depakote 750 bid started today. Cont ECT into next week. Objective: Vital Signs Temp Pulse Resp BP Pulse Ox 37.2 C 92 20 126/63 H 93 10/16/17 07:01 10/16/17 07:01 10/16/17 07:01 10/16/17 07:01 10/16/17 07:01 Laboratory Results 10/09/17 06:40 10/09/17 06:40 ICD10 Worksheet Patient Problems: Problems Problem Status Onset Bipolar 1 disorder Acute Altered mental status Active Bipolar disorder Active
[2017-10-16] MEDS: LEVOTHYROXINE 100 MCG TAB PO SCH (08:28)
[2017-10-16] MEDS: POLYETHYLENE GLYCOL 3350 17 GM PKT PO SCH (09:49)
[2017-10-16] MEDS: PSYLLIUM METAMUCIL 1 PKT PO SCH (09:49)
[2017-10-16] MEDS: LORazepam 1 MG TAB PO SCH ×3 (09:54→20:28)
[2017-10-16] MEDS: DIVALPROEX NA 250 MG TAB PO SCH (20:03)
[2017-10-16] MEDS: cloZAPine 100 MG TAB PO SCH (20:04)
[2017-10-17] MEDS: PSYLLIUM METAMUCIL 1 PKT PO SCH ×2 (08:42→11:17)
[2017-10-17] MEDS: POLYETHYLENE GLYCOL 3350 17 GM PKT PO SCH ×2 (08:42→09:31)
[2017-10-17] MEDS: LEVOTHYROXINE 100 MCG TAB PO SCH ×2 (08:43→09:28)
[2017-10-17] MEDS: LORazepam 1 MG TAB PO SCH ×2 (08:43→20:19)
[2017-10-17] MEDS: DIVALPROEX NA 250 MG TAB PO SCH ×3 (08:44→20:20)
--- NOTE | 2017-10-17 12:39 | SOAPPROG ---
SOAP Progress Note Assessment/Plan: Assessment: Per Dr. Gaona's Recent Notes: Plan: Read and appreciate MD notes on Daya. Her catatonic excitement is still present but abating slowly. Agitated, disorganized TPs, pressured speech, random , perseverative TC, nil insight/judgement. Disheveled appearance/dress. Plan Cont acute B ECT. Will hold Li for duration of acute ECT to mitigate cognitive impact with intention to restart immediately upon d/c of 3x/week phase of treatment. Understand plan to restart VPA on Thursday, but will hold its dose--as well as benzo--the hs prior to treatments to allow for more robust treatments. Remains gravely disabled. 10/14/17 07:32 10/15/17 15:15 Met with Daya and her father in presence of Dora Mcneill RN. Daya remains disorganized in speech and behavior, with ceaseless activity which is purposeless and intrusive to staff and peers. Rambling nonsensically. Despite this presentation, father corroborates that the INTENSITY of such symptoms is actually reduced since ECT initiated. Father on board with notion of starting VPA tomorrow. ALthough this med may lead to less intense ECT, its virtues likely outweigh this detriment. 10/16/17 07:06 Pt still quite disorganized and expansive, unable to sit still or attend for any sustained period. This after 15 acute B ECTs. Depakote 750 bid started today. Cont ECT into next week. 10/17/17 12:34 1. Presentation remains same. CCM according to Dr. Gaona's plan outlined above. 2. Patient did participate sporadically in art therapy group today. This was the first time she's been able to remain in therapy room with less disruptive behavior. 3. Patient tolerating first doses of VPA without complaint or SE's. 4. Next ECT on 10/19/17 Subjective: Met with patient, reviewed chart and d/w staff. Patient's presentation is much the same as prior notes from this week indicate. She remains hyperactive with purposeless, ceaseless movement. Her speech is nonsensical and constant. She is labile, and becomes tearful and emotional with little provocation. Today, she started crying b/c peer did not take the artwork she gave him when he left the therapy room. Objective: Vital Signs Temp Pulse Resp BP Pulse Ox 36.3 C 94 16 120/76 94 10/16/17 07:10 10/16/17 17:45 10/16/17 17:45 10/16/17 17:45 10/16/17 17:45 Laboratory Results 10/09/17 06:40 10/09/17 06:40 MSE: Excitable, restless, hyperverbal. Affect: Labile Mood: Mostly elevated, but extremely labile TP: Disorganized, illogical, nonsensical TC: Does not endorse SI/HI or AH/VH Insight/Judgment: Impaired - Time Spent With Patient Time Spent With Patient: 15" - Pending Discharge Pending Discharge Within 24 Hours: No Pending Discharge Within 48 Hours: No ICD10 Worksheet Patient Problems: Problems Problem Status Onset Bipolar 1 disorder Acute Altered mental status Active Bipolar disorder Active
[2017-10-17] MEDS: PROPRANOLOL HCL 10 MG TAB PO SCH ×2 (14:15→20:20)
[2017-10-17] MEDS: cloZAPine 100 MG TAB PO SCH (20:20)
[2017-10-18] MEDS: DIVALPROEX NA 250 MG TAB PO SCH ×2 (09:00→17:41)
[2017-10-18] MEDS: LORazepam 1 MG TAB PO SCH ×2 (09:01→17:42)
[2017-10-18] MEDS: LEVOTHYROXINE 100 MCG TAB PO SCH (11:24)
[2017-10-18] MEDS: POLYETHYLENE GLYCOL 3350 17 GM PKT PO SCH (11:26)
[2017-10-18] MEDS: PSYLLIUM METAMUCIL 1 PKT PO SCH (11:26)
--- NOTE | 2017-10-18 12:59 | SOAPPROG ---
SOAP Progress Note Assessment/Plan: Assessment: Per Dr. Gaona's Recent Notes: Plan: Read and appreciate MD notes on Daya. Her catatonic excitement is still present but abating slowly. Agitated, disorganized TPs, pressured speech, random , perseverative TC, nil insight/judgement. Disheveled appearance/dress. Plan Cont acute B ECT. Will hold Li for duration of acute ECT to mitigate cognitive impact with intention to restart immediately upon d/c of 3x/week phase of treatment. Understand plan to restart VPA on Thursday, but will hold its dose--as well as benzo--the hs prior to treatments to allow for more robust treatments. Remains gravely disabled. 10/14/17 07:32 10/15/17 15:15 Met with Daya and her father in presence of Dora Mcneill RN. Daya remains disorganized in speech and behavior, with ceaseless activity which is purposeless and intrusive to staff and peers. Rambling nonsensically. Despite this presentation, father corroborates that the INTENSITY of such symptoms is actually reduced since ECT initiated. Father on board with notion of starting VPA tomorrow. ALthough this med may lead to less intense ECT, its virtues likely outweigh this detriment. 10/16/17 07:06 Pt still quite disorganized and expansive, unable to sit still or attend for any sustained period. This after 15 acute B ECTs. Depakote 750 bid started today. Cont ECT into next week. 10/17/17 12:34 1. Presentation remains same. CCM according to Dr. Gaona's plan outlined above. 2. Patient did participate sporadically in art therapy group today. This was the first time she's been able to remain in therapy room with less disruptive behavior. 3. Patient tolerating first doses of VPA without complaint or SE's. 4. Next ECT on 10/19/17 10/18/17 12:57 1. CCM - no change, tolerating VPA and Ativan 2. ECT on Thursday Subjective: Met with patient, reviewed chart and d/w staff. Patient tried to participate in group therapy today, but left room d/t restlessness and emotional lability. She approached MD several times with a box of Williams asking, "Do you want to see me cry?" Objective: Vital Signs Temp Pulse Resp BP Pulse Ox 36.7 C 102 H 12 107/50 L 99 10/17/17 17:19 10/18/17 09:10 10/18/17 09:10 10/18/17 09:10 10/18/17 09:10 Laboratory Results 10/09/17 06:40 10/09/17 06:40 MSE: Affect: Tearful, labile, elevated at times Mood: Labile TP: Incoherent, rambling, nonsensical TC: Does not endorse SI/HI or AH/VH Insight/Judgment: Impaired - Time Spent With Patient Time Spent With Patient: 15" - Pending Discharge Pending Discharge Within 24 Hours: No Pending Discharge Within 48 Hours: No ICD10 Worksheet Patient Problems: Problems Problem Status Onset Bipolar 1 disorder Acute Altered mental status Active Bipolar disorder Active
[2017-10-18] MEDS: PROPRANOLOL HCL 10 MG TAB PO SCH ×2 (14:45→17:42)
[2017-10-18] MEDS: cloZAPine 100 MG TAB PO SCH (17:42)
[2017-10-19] MEDS: ZOLPIDEM TARTRATE 5 MG TAB PO PRN ×2 (00:40→20:37)
[2017-10-19] MEDS ORDERED: LIDOCAINE 2% 5 ML SDV ID ONE (04:00)
[2017-10-19] MEDS ORDERED: ONDANSETRON DISINTEGRATING 4 MG TAB PO ONE (04:00)
[2017-10-19] MEDS ORDERED: CITRIC ACID/SODIUM CITRATE 30 ML UDCUP PO ONE (04:00)
[2017-10-19] MEDS ORDERED: NS 1,000 ML IV ONE (04:00)
[2017-10-19] MEDS: PROPRANOLOL HCL 10 MG TAB PO SCH ×2 (04:52→20:42)
[2017-10-19] MEDS ORDERED: ONDANSETRON 4 MG/2 ML VIAL ONE (05:18)
[2017-10-19] MEDS ORDERED: PROPOFOL 200 MG/20 ML VIAL ONE (05:18)
[2017-10-19] MEDS ORDERED: MIDAZOLAM 2 MG/2 ML VIAL ONE (05:18)
[2017-10-19] MEDS ORDERED: KETOROLAC 30 MG/1 ML SDV ONE (05:18)
[2017-10-19] MEDS ORDERED: fentaNYL 100 MCG/2 ML INJ ONE (05:18)
[2017-10-19] MEDS ORDERED: GLYCOPYRROLATE 0.2 MG/1 ML VIAL ONE (05:18)
[2017-10-19] MEDS ORDERED: ETOMIDATE 20 MG/10 ML VIAL ONE (05:19)
[2017-10-19] MEDS ORDERED: ROCURONIUM 50 MG/5 ML VIAL ONE (05:19)
[2017-10-19] MEDS ORDERED: SUGAMMADEX SODIUM 200 MG/2 ML VIAL IVP ONE (05:21)
[2017-10-19] MEDS ORDERED: CITRIC ACID/SODIUM CITRATE 30 ML UDCUP ONE (06:12)
[2017-10-19] MEDS ORDERED: ONDANSETRON DISINTEGRATING 4 MG TAB ONE (06:12)
[2017-10-19] MEDS: DIVALPROEX NA 250 MG TAB PO SCH ×2 (10:32→20:37)
[2017-10-19] MEDS: LORazepam 1 MG TAB PO SCH ×2 (10:33→20:37)
[2017-10-19] MEDS: POLYETHYLENE GLYCOL 3350 17 GM PKT PO SCH (13:15)
[2017-10-19] MEDS: PSYLLIUM METAMUCIL 1 PKT PO SCH (13:15)
--- NOTE | 2017-10-19 17:49 | SOAPPROG ---
SOAP Progress Note Assessment/Plan: Assessment: Plan: 09/18/17 14:58 No improvement yet. [facility]. 09/19/17 07:21 Some improvement noted. Will [facility] inc: acute course ECT and holding meds. Will restart meds when pt has largely responded to ECT to avoid interfering with the treatments or contributing to confusion (lithium.) 09/22/17 18:50 Remaiuns psychotic CCM. 09/22/17 18:52 Catatonic excitement: some improvement. [facility]. 09/23/17 16:31 Catatonic excitement: Slow improvement. CCM. 09/24/17 17:18 Catatonia: Continued slow improvement. [facility]. 09/25/17 11:35 Catatonia: Continued improvement. [facility]. 09/28/17 17:16 Catatonia: Slow improvement. Court order granted. [facility] with continued titration of Clozaril. 09/29/17 13:55 Catatonia. remains quite ill. I reviewed pt's past treatment in 2011 when she was in a similar state and she required 18 acute treatments prior to transfer to SNF to continue outpatient ECT. She has had 7 so far in this acute course. [facility]. 09/30/17 17:29 Catatonia: Slow improvement. [facility]. 10/01/17 20:01 [place]: Continued gradual improvement. [facility]. 10/02/17 23:04 Catatonia: Improving. [facility]. 10/05/17 15:57 Catatonia/bipolar d/o: SLow improvement. Will increase propranolol to help with continued tachycardia, mild HTN, and possibly impulsiveness. Continue acute course ECT. Staff will continue to encourage PO intake. 10/06/17 17:10 Catatonia/BAD: Continued improvement. Seems to be gaining momentum. [facility]. 10/07/17 17:39 Catatonia/BAD: Slow improvement. [facility]. 10/09/17 16:05 Catatonia/BAD: Continued Slow improvement. [facility]. 10/12/17 15:23 Catatonia/BAD: Continued improvement. [facility]. Family meeting tomorrow at 1030. 10/13/17 16:33 Catatonia/BAD: Has plateaued over past several days. Will continue ECT, restart VPA on Thursday. 10/19/17 17:47 Catatonia/BAD: Continued slow improvement. Will [facility], evaluate benefit of VPA, restart lithium on Thursday. Subjective: Pt seen, discussed with staff, chart reviewed, discussed with Dr. Gaona. She remains disorganized, pressured, intrusive. Sleeping well, eating better. Grooming remains poor. Underwent ECT this morning without complication. Offers no c/o's. Told RN this morning that she fell in her room and staff corroborates that she was found on the floor of her room during the night. She c/o of some right-sided flank tenderness to RN, but not to me on direct questioning. Objective: Vital Signs Temp Pulse Resp BP Pulse Ox 36.7 C 95 15 101/58 L 97 10/19/17 12:31 10/19/17 12:31 10/19/17 12:31 10/19/17 08:28 10/19/17 12:31 Laboratory Results 10/09/17 06:40 10/09/17 06:40 - Time Spent With Patient Time Spent With Patient: 35" ICD10 Worksheet Patient Problems: Problems Problem Status Onset Bipolar 1 disorder Acute Altered mental status Active Bipolar disorder Active
[2017-10-19] MEDS: cloZAPine 100 MG TAB PO SCH (20:37)
[2017-10-20] MEDS: DIVALPROEX NA 250 MG TAB PO SCH ×2 (08:53→17:16)
[2017-10-20] MEDS: PROPRANOLOL HCL 10 MG TAB PO SCH ×2 (08:53→17:17)
[2017-10-20] MEDS: LEVOTHYROXINE 100 MCG TAB PO SCH (08:53)
[2017-10-20] MEDS: POLYETHYLENE GLYCOL 3350 17 GM PKT PO SCH (08:53)
[2017-10-20] MEDS: LORazepam 1 MG TAB PO SCH ×2 (08:53→17:17)
[2017-10-20] MEDS: PSYLLIUM METAMUCIL 1 PKT PO SCH (08:54)
--- NOTE | 2017-10-20 16:22 | SOAPPROG ---
SOAP Progress Note Assessment/Plan: Assessment: Plan: 09/18/17 14:58 No improvement yet. [facility]. 09/19/17 07:21 Some improvement noted. Will [facility] inc: acute course ECT and holding meds. Will restart meds when pt has largely responded to ECT to avoid interfering with the treatments or contributing to confusion (lithium.) 09/22/17 18:50 Remaiuns psychotic CCM. 09/22/17 18:52 Catatonic excitement: some improvement. [facility]. 09/23/17 16:31 Catatonic excitement: Slow improvement. [facility]CM. 09/24/17 17:18 Catatonia: Continued slow improvement. [facility]. 09/25/17 11:35 Catatonia: Continued improvement. [facility]. 09/28/17 17:16 Catatonia: Slow improvement. Court order granted. [facility] with continued titration of Clozaril. 09/29/17 13:55 Catatonia. remains quite ill. I reviewed pt's past treatment in 2011 when she was in a similar state and she required 18 acute treatments prior to transfer to SNF to continue outpatient ECT. She has had 7 so far in this acute course. [facility]. 09/30/17 17:29 Catatonia: Slow improvement. [facility]. 10/01/17 20:01 [place]: Continued gradual improvement. [facility]. 10/02/17 23:04 Catatonia: Improving. [facility]. 10/05/17 15:57 Catatonia/bipolar d/o: SLow improvement. Will increase propranolol to help with continued tachycardia, mild HTN, and possibly impulsiveness. Continue acute course ECT. Staff will continue to encourage PO intake. 10/06/17 17:10 Catatonia/BAD: Continued improvement. Seems to be gaining momentum. [facility]. 10/07/17 17:39 Catatonia/BAD: Slow improvement. [facility]. 10/09/17 16:05 Catatonia/BAD: Continued Slow improvement. [facility]. 10/12/17 15:23 Catatonia/BAD: Continued improvement. [facility]. Family meeting tomorrow at 1030. 10/13/17 16:33 Catatonia/BAD: Has plateaued over past several days. Will continue ECT, restart VPA on Thursday. 10/19/17 17:47 Catatonia/BAD: Continued slow improvement. Will [facility], evaluate benefit of VPA, restart lithium on Thursday. 10/20/17 16:21 Catatonia/BAD: Notably calmer, continued improvement. CCM. Restart lithium tomorrow. VPA level on . Subjective: Pt seen, discussed with staff and pt's sister. She is calmer today, actually napping before lunch. Less active and intrusive. More appropriate, able to eat with fellow patients in dining room. Compliant with all therapies. Objective: Vital Signs Temp Pulse Resp BP Pulse Ox 36.7 C 83 14 120/60 94 10/19/17 21:28 10/20/17 06:19 10/20/17 06:19 10/20/17 06:19 10/20/17 06:19 Laboratory Results 10/09/17 06:40 10/09/17 06:40 MSE: Agitated, but less so. Affect is more stable, approp. Mood is "good." TP linear for brief periods. TC reveals more appropriately associations. - Time Spent With Patient Time Spent With Patient: 25" ICD10 Worksheet Patient Problems: Problems Problem Status Onset Bipolar 1 disorder Acute Altered mental status Active Bipolar disorder Active
[2017-10-20] MEDS: cloZAPine 100 MG TAB PO SCH (17:17)
[2017-10-21] MEDS ORDERED: ONDANSETRON DISINTEGRATING 4 MG TAB PO ONE (04:00)
[2017-10-21] MEDS ORDERED: LIDOCAINE 2% 5 ML SDV ID ONE (04:00)
[2017-10-21] MEDS ORDERED: NS 1,000 ML IV ONE (04:00)
[2017-10-21] MEDS ORDERED: CITRIC ACID/SODIUM CITRATE 30 ML UDCUP PO ONE (04:00)
[2017-10-21] MEDS ORDERED: CITRIC ACID/SODIUM CITRATE 30 ML UDCUP ONE (06:43)
[2017-10-21] MEDS ORDERED: ONDANSETRON DISINTEGRATING 4 MG TAB ONE (06:43)
[2017-10-21] MEDS: PROPRANOLOL HCL 10 MG TAB PO SCH ×2 (09:26→19:45)
[2017-10-21] MEDS: LORazepam 1 MG TAB PO SCH ×2 (09:26→19:44)
[2017-10-21] MEDS: DIVALPROEX NA 250 MG TAB PO SCH ×2 (09:27→17:23)
[2017-10-21] MEDS: LEVOTHYROXINE 100 MCG TAB PO SCH (09:27)
[2017-10-21] MEDS: PSYLLIUM METAMUCIL 1 PKT PO SCH (09:28)
[2017-10-21] MEDS: POLYETHYLENE GLYCOL 3350 17 GM PKT PO SCH (09:28)
--- NOTE | 2017-10-21 15:07 | SOAPPROG ---
SOAP Progress Note Assessment/Plan: Assessment: Plan: 09/18/17 14:58 No improvement yet. [facility]. 09/19/17 07:21 Some improvement noted. Will [facility] inc: acute course ECT and holding meds. Will restart meds when pt has largely responded to ECT to avoid interfering with the treatments or contributing to confusion (lithium.) 09/22/17 18:50 Remaiuns psychotic CCM. 09/22/17 18:52 Catatonic excitement: some improvement. [facility]. 09/23/17 16:31 Catatonic excitement: Slow improvement. CCM. 09/24/17 17:18 Catatonia: Continued slow improvement. [facility]. 09/25/17 11:35 Catatonia: Continued improvement. [facility]. 09/28/17 17:16 Catatonia: Slow improvement. Court order granted. [facility] with continued titration of Clozaril. 09/29/17 13:55 Catatonia. remains quite ill. I reviewed pt's past treatment in 2011 when she was in a similar state and she required 18 acute treatments prior to transfer to SNF to continue outpatient ECT. She has had 7 so far in this acute course. [facility]. 09/30/17 17:29 Catatonia: Slow improvement. [facility]. 10/01/17 20:01 [place]: Continued gradual improvement. [facility]. 10/02/17 23:04 Catatonia: Improving. [facility]. 10/05/17 15:57 Catatonia/bipolar d/o: SLow improvement. Will increase propranolol to help with continued tachycardia, mild HTN, and possibly impulsiveness. Continue acute course ECT. Staff will continue to encourage PO intake. 10/06/17 17:10 Catatonia/BAD: Continued improvement. Seems to be gaining momentum. [facility]. 10/07/17 17:39 Catatonia/BAD: Slow improvement. [facility]. 10/09/17 16:05 Catatonia/BAD: Continued Slow improvement. [facility]. 10/12/17 15:23 Catatonia/BAD: Continued improvement. [facility]. Family meeting tomorrow at 1030. 10/13/17 16:33 Catatonia/BAD: Has plateaued over past several days. Will continue ECT, restart VPA on Thursday. 10/19/17 17:47 Catatonia/BAD: Continued slow improvement. Will [facility], evaluate benefit of VPA, restart lithium on Thursday. 10/20/17 16:21 Catatonia/BAD: Notably calmer, continued improvement. CCM. Restart lithium tomorrow. VPA level on . 10/21/17 15:06 Catatonia/BAD: No interval change. Will restart lithium tonight. Hold ECT until Thursday to allow mental status to clear a bit and to establish meds. Subjective: Pt seen, discussed with staff. Remains agitated, but gradually clearing. Underwent ECT this morning without complication. Compliant with meds. Slept well without trazodone. Objective: Vital Signs Temp Pulse Resp BP Pulse Ox 36.9 C 78 16 108/59 L 92 10/21/17 08:35 10/21/17 11:00 10/21/17 11:00 10/21/17 11:00 10/21/17 11:00 Laboratory Results 10/09/17 06:40 10/09/17 06:40 - Time Spent With Patient Time Spent With Patient: 35" ICD10 Worksheet Patient Problems: Problems Problem Status Onset Bipolar 1 disorder Acute Altered mental status Active Bipolar disorder Active
[2017-10-21] MEDS: cloZAPine 100 MG TAB PO SCH (19:44)
[2017-10-21] MEDS ORDERED: LITHIUM CARBONATE ER 300 MG TAB PO SCH (21:00)
[2017-10-22] MEDS: LEVOTHYROXINE 100 MCG TAB PO SCH (09:26)
[2017-10-22] MEDS: PROPRANOLOL HCL 10 MG TAB PO SCH (09:26)
[2017-10-22] MEDS: LORazepam 1 MG TAB PO SCH (09:28)
[2017-10-22] MEDS: DIVALPROEX NA 250 MG TAB PO SCH (09:29)
[2017-10-22] MEDS: PSYLLIUM METAMUCIL 1 PKT PO SCH (09:45)
[2017-10-22] MEDS: POLYETHYLENE GLYCOL 3350 17 GM PKT PO SCH (09:45)
--- NOTE | 2017-10-22 11:29 | SOAPPROG ---
SOAP Progress Note Assessment/Plan: Assessment: Per Dr. Gerber's Recent Notes: 10/19/17 17:47 Catatonia/BAD: Continued slow improvement. Will CCM, evaluate benefit of VPA, restart lithium on Thursday. 10/20/17 16:21 Catatonia/BAD: Notably calmer, continued improvement. CCM. Restart lithium tomorrow. VPA level on . 10/21/17 15:06 Catatonia/BAD: No interval change. Will restart lithium tonight. Hold ECT until Thursday to allow mental status to clear a bit and to establish meds. Subjective: Pt seen, discussed with staff. Remains agitated, but gradually clearing. Underwent ECT this morning without complication. Compliant with meds. Slept well without trazodone. 10/22/17 11:26 1. Patient presents less restless and excitable, however she remains intermittently agitated and labile, as well as disoriented at times. 2. VPA was ordered today - results still pending 3. Patient will not have ECT on Thursday per Dr. Gerber's recommendation. Will resume on Thursday. Subjective: Met with patient, reviewed chart and d/w staff. Staff report patient woke up in middle of the night, was disoriented and confused, disrobed in her room and came out of room naked. She eventually went back to bed. This AM, patient was lying curled up in bed wrapped in sheets and blanket, mumbling and talking nonsensically in loud voice. She was not pacing the halls and did not present with persistent movement and restlessness that has characterized her behavior over past several weeks. She is currently on VPA and [place] which was restarted on Thursday. Next ECT will be on Thursday. Objective: Vital Signs Temp Pulse Resp BP Pulse Ox 36.9 C 93 20 117/59 L 95 10/21/17 08:35 10/22/17 06:40 10/22/17 06:40 10/22/17 06:40 10/22/17 06:40 Laboratory Results 10/09/17 06:40 10/09/17 06:40 MSE: Less excitable and restless, lying in bed mumbling loudly. Affect: Euthymic Mood: Labile TP: Disorganized, nonsensical TC: Does not endorse SI/ HI or AH/VH Insight/Judgment: Impaired - Time Spent With Patient Time Spent With Patient: 15" - Pending Discharge Pending Discharge Within 24 Hours: No Pending Discharge Within 48 Hours: No ICD10 Worksheet Patient Problems: Problems Problem Status Onset Bipolar 1 disorder Acute Altered mental status Active Bipolar disorder Active
--- NOTE | 2017-10-22 20:06 | SOAPPROG ---
SOAP Progress Note Assessment/Plan: Assessment: On-call Psychiatrist. Patient on unit for grave disability from severe lorena with disorganized thought process and inability to care for herself, has received ECT treatments since admission, clozapine/lorazepam/depakote medications restarted in past week. Per unit RN patient has had very poor PO intake, needs numerous prompts to eat or drink small amounts. Last night was disorganized and disrobing in the middle of the night, and today on unit was non-sensical with slurred speech, lethargic, crawling on the floor. Per nurse, patient now sleeping/resting. Due to concern of delirium and possible excessive sedation from current medications (clozapine, depakote, lithium, ativan), will hold HS medications, order AM labs (CBC, CMP, [place] level, Depakote level) and staff on unit instructed to push fluids when patient awake. Patient refused blood draw this AM to check Depakote level. If patient refuses AM blood draw she will need to be restrained for blood draw, either on unit or in ER. RN notified to contact M.D. if patient awake tonight and alert and then will order HS medication but possibly lower dose. 10/22/17 20:06 Objective: Vital Signs Temp Pulse Resp BP Pulse Ox 36.9 C 90 16 103/53 L 95 10/21/17 08:35 10/22/17 16:33 10/22/17 16:33 10/22/17 16:33 10/22/17 16:33 Laboratory Results 10/09/17 06:40 10/09/17 06:40 ICD10 Worksheet Patient Problems: Problems Problem Status Onset Bipolar 1 disorder Acute Altered mental status Active Bipolar disorder Active
[2017-10-23 00:49] LABS: ALANINE AMINOTRANSFERASE 32 IU/L (9-52); ALBUMIN 3.6 g/dL (3.5-5.0); ALKALINE PHOSPHATASE 53 IU/L (38-126); ANION GAP 15 mEq/L (8-16); ASPARTATE AMINOTRANSFERASE 19 IU/L (14-46); BILIRUBIN,TOTAL 0.3 mg/dL (0.1-1.4); CALCIUM 10.1 mg/dL (8.5-10.4); CARBON DIOXIDE 23 mEq/l (22-31); CHLORIDE 108 mEq/L (97-110); CREATININE 0.6 mg/dL (0.6-1.0); GLOMERULAR FILTRATION RATE > 60; GLUCOSE 89 mg/dL (70-100); POTASSIUM 4.3 mEq/L (3.5-5.2); SODIUM 146 mEq/L (134-144); TOTAL PROTEIN 6.4 g/dL (6.3-8.2)
[2017-10-23 00:50] LABS: LITHIUM < 0.2 mEq/L (0.6-1.2)
[2017-10-23 01:03] LABS: % IMMATURE GRANULYOCYTES 0.4 % (0.0-1.1); ABSOLUTE IMMATURE GRANULOCYTES 0.03 10^3/uL (0.00-0.10); ADD DIFF? NO; ADD MORPH? NO; ADD SCAN? NO; ATYPICAL LYMPHOCYTE FLAG 10 (0-99); FRAGMENT RBC FLAG 0 (0-99); HEMATOCRIT 41.9 % (38.0-47.0); HEMOGLOBIN 13.6 g/dL (12.6-16.3); LEFT SHIFT FLG 0 (0-99); LIPEMIA HEMOLYSIS FLAG 80 (0-99); MEAN CELL HEMOGLOBIN 28.9 pg (27.9-34.1); MEAN CELL HEMOGLOBIN CONCENTR. 32.5 g/dL (32.4-36.7); MEAN CELL VOLUME 89.1 fL (81.5-99.8); MEAN PLATELET VOLUME 12.2 fL (8.7-11.7); PLATELET CLUMPS FLAG 0 (0-99); PLATELET COUNT 189 10^3/uL (150-400); RED CELL DISTRIBUTION WIDTH 13.3 % (11.5-15.2)
[2017-10-23] MEDS: PSYLLIUM METAMUCIL 1 PKT PO SCH (07:46)
[2017-10-23] MEDS: POLYETHYLENE GLYCOL 3350 17 GM PKT PO SCH (07:46)
[2017-10-23] MEDS: LORazepam 1 MG TAB PO SCH ×2 (10:06→15:37)
[2017-10-23] MEDS: DIVALPROEX NA 250 MG TAB PO SCH ×3 (10:06→19:02)
[2017-10-23] MEDS: PROPRANOLOL HCL 10 MG TAB PO SCH ×3 (10:06→19:15)
[2017-10-23] MEDS ORDERED: traZODone 50 MG TAB PO PRN (11:12)
[2017-10-23] MEDS ORDERED: MELATONIN 3 MG TAB PO PRN (11:12)
[2017-10-23] MEDS: LEVOTHYROXINE 100 MCG TAB PO SCH (11:43)
[2017-10-23] MEDS: LITHIUM CARBONATE ER 300 MG TAB PO SCH ×2 (11:43→19:02)
--- NOTE | 2017-10-23 13:43 | SOAPPROG ---
SOAP Progress Note Assessment/Plan: Assessment: Per Dr. Gerber's Recent Notes: 10/19/17 17:47 Catatonia/BAD: Continued slow improvement. Will CCM, evaluate benefit of VPA, restart lithium on Thursday. 10/20/17 16:21 Catatonia/BAD: Notably calmer, continued improvement. CCM. Restart lithium tomorrow. VPA level on . 10/21/17 15:06 Catatonia/BAD: No interval change. Will restart lithium tonight. Hold ECT until Thursday to allow mental status to clear a bit and to establish meds. Subjective: Pt seen, discussed with staff. Remains agitated, but gradually clearing. Underwent ECT this morning without complication. Compliant with meds. Slept well without trazodone. 10/22/17 11:26 1. Patient presents less restless and excitable, however she remains intermittently agitated and labile, as well as disoriented at times. 2. VPA was ordered today - results still pending 3. Patient will not have ECT on Thursday per Dr. Gerber's recommendation. Will resume on Thursday. 10/23/17 13:37 1. Staff report patient woke up in middle of night and was delirious, crawling on floor, but later went to bed and slept almost 10 hrs. 2. Meds were held last night d/t AMS by MD working second hand. 3. Today, patient was more restless and excitable. Her behavior is more consistent with her presentation over the course of first several weeks of her admission. She is talking nonsensically and illogically and has persistent restless, purposeless movements. 4. VPA level last night was 75.7 and [place] level was <0.2. 4. MD made the following meds adjustments: -Change lithium to 300mg BID -Keep VPA same -Decrease Ativan dose as this may be causing delirium, especially in combo with Clozaril -Will temporarily lower dose of Clozaril to 150mg QHS until issues with AMS are resolved 5. Patient has done well on combo of Clozaril, VPA and [place] for Bipolar DO with maintenance ECT in past. Will hope to resume her usual outpatient med regimen once catatonia is fully resolved. 6. Patient will resume ECT on Thursday. 7. Will monitor over w/e and adjust meds as needed Subjective: Met with patient, reviewed chart and d/w staff. Patient appeared to have episode of AMS, confusions and unusual behaviors last night. However, reports from staff vary as to whether patient was delirious, heavily sedated or catatonia was actually resolved to point where she was no longer acting the way staff are used to seeing her during this admission. tried to parse out these various explanations, but reports are inconclusive. Today, patient is much more excitable than yesterday and her presentation is more consistent with the excitable catatonia she exhibited earlier during this admission. Unclear whether this is d/t not receiving VPA, [place] or Clozaril last night or not having ECT today. As a precaution, will reduce dose of Clozaril and Ativan to avoid adverse interactions. Will also change [place] to BID dosing. It's likely patient will need longer time on her mood stabilizers in order to see significant resolution of her manic sxs. In the presence of catatonia, it's difficult to pinpoint a single cause for any set of behaviors especially when they last only temporarily. Objective: Vital Signs Temp Pulse Resp BP Pulse Ox 36.9 C 108 H 16 119/66 97 10/21/17 08:35 10/23/17 08:00 10/23/17 08:00 10/23/17 08:00 10/23/17 08:00 Laboratory Results 10/22/17 23:30 10/22/17 23:30 MSE: Restless, excitable, persistent, purposeless speech and movement. Affect: Elevated, Labile Mood: Labile TP: Nonsensical, illogical TC: No mention of SI /HI, no evidence or report of AH/VH Insight/Judgment: Impaired - Time Spent With Patient Time Spent With Patient: 30" - Pending Discharge Pending Discharge Within 24 Hours: No Pending Discharge Within 48 Hours: No ICD10 Worksheet Patient Problems: Problems Problem Status Onset Bipolar 1 disorder Acute Altered mental status Active Bipolar disorder Active
[2017-10-23] MEDS: cloZAPine 100 MG TAB PO SCH (19:02)
[2017-10-24] MEDS: LEVOTHYROXINE 100 MCG TAB PO SCH (08:37)
[2017-10-24] MEDS: DIVALPROEX NA 250 MG TAB PO SCH ×2 (08:38→20:19)
[2017-10-24] MEDS: LORazepam 1 MG TAB PO SCH ×2 (08:38→16:18)
[2017-10-24] MEDS: PROPRANOLOL HCL 10 MG TAB PO SCH ×2 (08:42→20:24)
[2017-10-24] MEDS: LITHIUM CARBONATE ER 300 MG TAB PO SCH ×2 (08:44→20:20)
[2017-10-24] MEDS: PSYLLIUM METAMUCIL 1 PKT PO SCH (08:45)
[2017-10-24] MEDS: POLYETHYLENE GLYCOL 3350 17 GM PKT PO SCH (08:45)
--- NOTE | 2017-10-24 12:21 | SOAPPROG ---
SOAP Progress Note Assessment/Plan: Assessment: Per Dr. Gerbre's Recent Notes: 10/19/17 17:47 Catatonia/BAD: Continued slow improvement. Will CCM, evaluate benefit of VPA, restart lithium on Thursday. 10/20/17 16:21 Catatonia/BAD: Notably calmer, continued improvement. CCM. Restart lithium tomorrow. VPA level on . 10/21/17 15:06 Catatonia/BAD: No interval change. Will restart lithium tonight. Hold ECT until Thursday to allow mental status to clear a bit and to establish meds. Subjective: Pt seen, discussed with staff. Remains agitated, but gradually clearing. Underwent ECT this morning without complication. Compliant with meds. Slept well without trazodone. 10/22/17 11:26 1. Patient presents less restless and excitable, however she remains intermittently agitated and labile, as well as disoriented at times. 2. VPA was ordered today - results still pending 3. Patient will not have ECT on Thursday per Dr. Gerber's recommendation. Will resume on Thursday. 10/23/17 13:37 1. Staff report patient woke up in middle of night and was delirious, crawling on floor, but later went to bed and slept almost 10 hrs. 2. Meds were held last night d/t AMS by MD acid concentrator. 3. Today, patient was more restless and excitable. Her behavior is more consistent with her presentation over the course of first several weeks of her admission. She is talking nonsensically and illogically and has persistent restless, purposeless movements. 4. VPA level last night was 75.7 and [place] level was <0.2. 4. MD made the following meds adjustments: -Change lithium to 300mg BID -Keep VPA same -Decrease Ativan dose as this may be causing delirium, especially in combo with Clozaril -Will temporarily lower dose of Clozaril to 150mg QHS until issues with AMS are resolved 5. Patient has done well on combo of Clozaril, VPA and [place] for Bipolar DO with maintenance ECT in past. Will hope to resume her usual outpatient med regimen once catatonia is fully resolved. 6. Patient will resume ECT on Thursday. 7. Will monitor over w/e and adjust meds as needed 10/24/17 12:16 1. No recurrence of delirium or AMS since med changes yesterday. She slept 9 hrs last night with no THU waking or incontinence. 2. Patient still restless, excitable, but was able to participate in art group without getting up out of seat x 30 min, and no disruptive behavior. 3. CCM - patient more stable today 4. Expect ECT on Thursday Subjective: Met with patient, reviewed chart and d/w staff. Daya presents with what has become her usual amount of restless, purposeless behavior and excitability today. Her mood is more elevated than prior 2 days, and she has less mood lability, none of the crying spells or yelling that has accompanied her excitable behavior in past. MD observed patient participate in art therapy group. She stayed in her seat for > 30 min without disrupting group, though she talked almost nonstop the whole time. She was pleasant and considerate when other patients wanted to talk. She was able to complete a watercolor drawing. Objective: Vital Signs Temp Pulse Resp BP Pulse Ox 36.6 C 70 20 106/56 L 92 10/24/17 06:50 10/24/17 08:42 10/24/17 06:50 10/24/17 08:42 10/24/17 06:50 Laboratory Results 10/22/17 23:30 10/22/17 23:30 MSE: Restless, excitable, less labile. Affect: Elevated Mood: "I feel good", less irritable, no crying spells TP: More directed (when MD was looking for a peer, patient stated quite coherently, "well, he can't leave the building, so he must be here somewhere") TC: Does not endorse SI/HI, no AH/VH Insight/ Judgment: Poor - Time Spent With Patient Time Spent With Patient: 20" - Pending Discharge Pending Discharge Within 24 Hours: No Pending Discharge Within 48 Hours: No ICD10 Worksheet Patient Problems: Problems Problem Status Onset Bipolar 1 disorder Acute Altered mental status Active Bipolar disorder Active
[2017-10-24] MEDS: cloZAPine 100 MG TAB PO SCH (20:20)
[2017-10-25] MEDS: LITHIUM CARBONATE ER 300 MG TAB PO SCH ×2 (08:58→19:58)
[2017-10-25] MEDS: LEVOTHYROXINE 100 MCG TAB PO SCH (08:58)
[2017-10-25] MEDS: DIVALPROEX NA 250 MG TAB PO SCH ×2 (08:58→19:53)
[2017-10-25] MEDS: LORazepam 1 MG TAB PO SCH ×2 (08:58→15:42)
[2017-10-25] MEDS: PROPRANOLOL HCL 10 MG TAB PO SCH ×2 (08:59→19:57)
[2017-10-25] MEDS: POLYETHYLENE GLYCOL 3350 17 GM PKT PO SCH (09:25)
[2017-10-25] MEDS: PSYLLIUM METAMUCIL 1 PKT PO SCH (09:25)
--- NOTE | 2017-10-25 11:41 | SOAPPROG ---
SOAP Progress Note Assessment/Plan: Assessment: Per Dr. Gerber's Recent Notes: 10/19/17 17:47 Catatonia/BAD: Continued slow improvement. Will CCM, evaluate benefit of VPA, restart lithium on Thursday. 10/20/17 16:21 Catatonia/BAD: Notably calmer, continued improvement. CCM. Restart lithium tomorrow. VPA level on . 10/21/17 15:06 Catatonia/BAD: No interval change. Will restart lithium tonight. Hold ECT until Thursday to allow mental status to clear a bit and to establish meds. Subjective: Pt seen, discussed with staff. Remains agitated, but gradually clearing. Underwent ECT this morning without complication. Compliant with meds. Slept well without trazodone. 10/22/17 11:26 1. Patient presents less restless and excitable, however she remains intermittently agitated and labile, as well as disoriented at times. 2. VPA was ordered today - results still pending 3. Patient will not have ECT on Thursday per Dr. Gerber's recommendation. Will resume on Thursday. 10/23/17 13:37 1. Staff report patient woke up in middle of night and was delirious, crawling on floor, but later went to bed and slept almost 10 hrs. 2. Meds were held last night d/t AMS by MD natural resource economist. 3. Today, patient was more restless and excitable. Her behavior is more consistent with her presentation over the course of first several weeks of her admission. She is talking nonsensically and illogically and has persistent restless, purposeless movements. 4. VPA level last night was 75.7 and [place] level was <0.2. 4. MD made the following meds adjustments: -Change lithium to 300mg BID -Keep VPA same -Decrease Ativan dose as this may be causing delirium, especially in combo with Clozaril -Will temporarily lower dose of Clozaril to 150mg QHS until issues with AMS are resolved 5. Patient has done well on combo of Clozaril, VPA and [place] for Bipolar DO with maintenance ECT in past. Will hope to resume her usual outpatient med regimen once catatonia is fully resolved. 6. Patient will resume ECT on Thursday. 7. Will monitor over w/e and adjust meds as needed 10/24/17 12:16 1. No recurrence of delirium or AMS since med changes yesterday. She slept 9 hrs last night with no THU waking or incontinence. 2. Patient still restless, excitable, but was able to participate in art group without getting up out of seat x 30 min, and no disruptive behavior. 3. CCM - patient more stable today 4. Expect ECT on Thursday10/25/17 11:34 1. Patient had difficult afternoon yesterday after phone call with . Today, her mood is elevated and she is pleasant and positive. Not much else about her presentation has significantly changed. 2. CCM - more stable today 3. ECT scheduled Thursday at 7am Subjective: Met with patient, reviewed chart and d/w staff. Yesterday after MD spoke with patient, she had an upsetting phone call with her . Staff report Daya was crying and stayed in her room for several hours perseverating on 's relationships with female friend. It's unclear whether patient was imagining the relationship was more than it is in reality, but she was clearly upset that was spending time with another woman. Today, patient presented similar to how MD witnessed her yesterday morning before her phone call with . She has elevated mood, restlessness, persistent, rambling speech. However, she is quite pleasant and cooperative with redirection. She is laughing and smiling while trying to tell MD a joke. She went to art/music group and participated appropriately. Objective: Vital Signs Temp Pulse Resp BP Pulse Ox 36.2 C 100 12 112/51 L 97 10/25/17 06:42 10/25/17 09:47 10/25/17 09:47 10/25/17 09:47 10/25/17 09:47 Laboratory Results 10/22/17 23:30 10/22/17 23:30 MSE: Affect: Elevated, less labile and no crying Mood: "OK" TP: Tangential, DANIELA TC: Denies any SI/HI, no AH/VH Insight/Judgment: Impaired - Time Spent With Patient Time Spent With Patient: 20" - Pending Discharge Pending Discharge Within 24 Hours: No Pending Discharge Within 48 Hours: No ICD10 Worksheet Patient Problems: Problems Problem Status Onset Bipolar 1 disorder Acute Altered mental status Active Bipolar disorder Active
[2017-10-25] MEDS: cloZAPine 100 MG TAB PO SCH (19:53)
[2017-10-26] MEDS ORDERED: fentaNYL 100 MCG/2 ML INJ ONE (05:48)
[2017-10-26] MEDS ORDERED: MIDAZOLAM 2 MG/2 ML VIAL ONE (05:48)
[2017-10-26] MEDS ORDERED: GLYCOPYRROLATE 0.2 MG/1 ML VIAL ONE (05:49)
[2017-10-26] MEDS ORDERED: ONDANSETRON 4 MG/2 ML VIAL ONE (05:49)
[2017-10-26] MEDS ORDERED: LIDOCAINE 2% 5 ML SDV ONE (05:49)
[2017-10-26] MEDS ORDERED: ETOMIDATE 20 MG/10 ML VIAL ONE (05:49)
[2017-10-26] MEDS ORDERED: KETOROLAC 30 MG/1 ML SDV ONE (05:49)
[2017-10-26] MEDS ORDERED: PROPOFOL 200 MG/20 ML VIAL ONE (05:49)
[2017-10-26] MEDS ORDERED: ROCURONIUM 50 MG/5 ML VIAL ONE (05:50)
[2017-10-26] MEDS ORDERED: SUGAMMADEX SODIUM 200 MG/2 ML VIAL IVP ONE (05:50)
[2017-10-26] MEDS ORDERED: ONDANSETRON DISINTEGRATING 4 MG TAB ONE (06:45)
[2017-10-26] MEDS ORDERED: CITRIC ACID/SODIUM CITRATE 30 ML UDCUP ONE (06:45)
[2017-10-26] MEDS ORDERED: NS 1,000 ML IV ONE (07:45)
[2017-10-26] MEDS ORDERED: ONDANSETRON DISINTEGRATING 4 MG TAB PO ONE (07:45)
[2017-10-26] MEDS ORDERED: LIDOCAINE 2% 5 ML SDV ID ONE (07:45)
[2017-10-26] MEDS ORDERED: CITRIC ACID/SODIUM CITRATE 30 ML UDCUP PO ONE (07:45)
[2017-10-26] MEDS ORDERED: HYDROCODONE/APAP 5/325 TAB PO PRN (07:46)
[2017-10-26] MEDS ORDERED: PROMETHAZINE HCL 25 MG TAB PO PRN (07:46)
[2017-10-26] MEDS ORDERED: ONDANSETRON DISINTEGRATING 4 MG TAB PO PRN (07:46)
--- NOTE | 2017-10-26 08:10 | SOAPPROG ---
SOAP Progress Note Assessment/Plan: Assessment: Bipolar I, manic with psychotic and catatonic features, h/o NMS, develomental delay Plan: Read and appreciate MD notes on Daya. Her catatonic excitement is still present but abating slowly. Agitated, disorganized TPs, pressured speech, random , perseverative TC, nil insight/judgement. Disheveled appearance/dress. Plan Cont acute B ECT. Will hold Li for duration of acute ECT to mitigate cognitive impact with intention to restart immediately upon d/c of 3x/week phase of treatment. Understand plan to restart VPA on Thursday, but will hold its dose--as well as benzo--the hs prior to treatments to allow for more robust treatments. Remains gravely disabled. 10/14/17 07:32 10/15/17 15:15 Met with Daya and her father in presence of Dora Mcneill RN. Daya remains disorganized in speech and behavior, with ceaseless activity which is purposeless and intrusive to staff and peers. Rambling nonsensically. Despite this presentation, father corroborates that the INTENSITY of such symptoms is actually reduced since ECT initiated. Father on board with notion of starting VPA tomorrow. ALthough this med may lead to less intense ECT, its virtues likely outweigh this detriment. 10/16/17 07:06 Pt still quite disorganized and expansive, unable to sit still or attend for any sustained period. This after 15 acute B ECTs. Depakote 750 bid started today. Cont ECT into next week. 10/26/17 08:11 Pt seen prior to ECT. Chart reviewed. Notable for period of increased disorganization a few days ago, thought to be some confluence of meds with her acute ECT. Some meds were reduced and pt had a five day respite from ECT leading to today. As of today, pt is expansive, giggling inappropriately, repeating the same nonsensical "joke" in perseverative manner. RN notes multiple bruises and pt indicated she has been falling. Will ensure she is on fall precaution or LOS. Will cont ECT, but only 2x/week this week given recent MS change. Level of Li and VPA reveal some room to increase Li, but will hold off for now given possible instability, likely the cumulative effect of meds and ECT. Objective: Vital Signs Temp Pulse Resp BP Pulse Ox 34.3 C L 94 14 120/53 L 90 L 10/26/17 06:00 10/26/17 06:00 10/26/17 06:00 10/26/17 06:00 10/26/17 06:00 Laboratory Results 10/22/17 23:30 10/22/17 23:30 ICD10 Worksheet Patient Problems: Problems Problem Status Onset Bipolar 1 disorder Acute Altered mental status Active Bipolar disorder Active
[2017-10-26] MEDS: LORazepam 1 MG TAB PO SCH ×2 (08:30→15:57)
[2017-10-26] MEDS: DIVALPROEX NA 250 MG TAB PO SCH ×2 (08:32→20:43)
[2017-10-26] MEDS: LITHIUM CARBONATE ER 300 MG TAB PO SCH ×2 (08:33→20:44)
[2017-10-26] MEDS: PSYLLIUM METAMUCIL 1 PKT PO SCH (09:04)
[2017-10-26] MEDS: POLYETHYLENE GLYCOL 3350 17 GM PKT PO SCH (09:04)
[2017-10-26] MEDS: PROPRANOLOL HCL 10 MG TAB PO SCH ×2 (09:04→20:44)
[2017-10-26] MEDS: LEVOTHYROXINE 100 MCG TAB PO SCH (09:05)
[2017-10-26] MEDS: cloZAPine 100 MG TAB PO SCH (20:43)
[2017-10-27] MEDS: POLYETHYLENE GLYCOL 3350 17 GM PKT PO SCH (07:23)
[2017-10-27] MEDS: PSYLLIUM METAMUCIL 1 PKT PO SCH (07:23)
[2017-10-27] MEDS: LORazepam 1 MG TAB PO SCH ×2 (08:26→15:28)
[2017-10-27] MEDS: DIVALPROEX NA 250 MG TAB PO SCH ×2 (08:26→21:14)
[2017-10-27] MEDS: PROPRANOLOL HCL 10 MG TAB PO SCH ×2 (08:26→21:14)
[2017-10-27] MEDS: LEVOTHYROXINE 100 MCG TAB PO SCH (08:26)
[2017-10-27] MEDS: LITHIUM CARBONATE ER 300 MG TAB PO SCH ×2 (08:26→21:14)
--- NOTE | 2017-10-27 15:01 | SOAPPROG ---
SOAP Progress Note Assessment/Plan: Assessment: Per Dr. Gerber's Recent Notes: 10/19/17 17:47 Catatonia/BAD: Continued slow improvement. Will CCM, evaluate benefit of VPA, restart lithium on Thursday. 10/20/17 16:21 Catatonia/BAD: Notably calmer, continued improvement. CCM. Restart lithium tomorrow. VPA level on . 10/21/17 15:06 Catatonia/BAD: No interval change. Will restart lithium tonight. Hold ECT until Thursday to allow mental status to clear a bit and to establish meds. Subjective: Pt seen, discussed with staff. Remains agitated, but gradually clearing. Underwent ECT this morning without complication. Compliant with meds. Slept well without trazodone. 10/22/17 11:26 1. Patient presents less restless and excitable, however she remains intermittently agitated and labile, as well as disoriented at times. 2. VPA was ordered today - results still pending 3. Patient will not have ECT on Thursday per Dr. Gerber's recommendation. Will resume on Thursday. 10/23/17 13:37 1. Staff report patient woke up in middle of night and was delirious, crawling on floor, but later went to bed and slept almost 10 hrs. 2. Meds were held last night d/t AMS by MD contact center manager. 3. Today, patient was more restless and excitable. Her behavior is more consistent with her presentation over the course of first several weeks of her admission. She is talking nonsensically and illogically and has persistent restless, purposeless movements. 4. VPA level last night was 75.7 and [place] level was <0.2. 4. MD made the following meds adjustments: -Change lithium to 300mg BID -Keep VPA same -Decrease Ativan dose as this may be causing delirium, especially in combo with Clozaril -Will temporarily lower dose of Clozaril to 150mg QHS until issues with AMS are resolved 5. Patient has done well on combo of Clozaril, VPA and [place] for Bipolar DO with maintenance ECT in past. Will hope to resume her usual outpatient med regimen once catatonia is fully resolved. 6. Patient will resume ECT on Thursday. 7. Will monitor over w/e and adjust meds as needed 10/24/17 12:16 1. No recurrence of delirium or AMS since med changes yesterday. She slept 9 hrs last night with no THU waking or incontinence. 2. Patient still restless, excitable, but was able to participate in art group without getting up out of seat x 30 min, and no disruptive behavior. 3. CCM - patient more stable today 4. Expect ECT on Thursday10/25/17 11:34 1. Patient had difficult afternoon yesterday after phone call with . Today, her mood is elevated and she is pleasant and positive. Not much else about her presentation has significantly changed. 2. CCM - more stable today 3. ECT scheduled Thursday at 7am 10/27/17 14:[address] Gaona did ECT #18 on Thursday. Next ECT on Thursday. 2. Will continue on current meds, though, there is plenty of room to move on VPA , Clozaril and [place] doses, both Dr. Gaona and I agree that waiting to titrate meds further is warranted given her recent episode of AMS and confusions. There has been no recurrence since last Thursday. However, patient remains labile, likely d/t her developmental delay and bipolar. We may actually be seeing more of her underlying baseline cognitive and emotional functioning as a result of the acute effects of ECT which seem to have had some improvement on her excitable catatonia. 3. Patient remains on LOS after ECT and at night d/t risk fo fall. No falls reported today. Subjective: Met with patient, reviewed chart and d/w staff. Patient is emotionally labile today, crying at times and yelling for nurse's attention. She is less excitable today and when redirected, she does comply. No more falls reported today. Objective: Vital Signs Temp Pulse Resp BP Pulse Ox 37.1 C 99 12 141/58 H 94 10/26/17 07:56 10/27/17 06:00 10/27/17 06:00 10/27/17 06:00 10/26/17 11:17 Laboratory Results 10/22/17 23:30 10/22/17 23:30 MSE: Affect: Labile, elevated, irritable and tearful Mood: No change TP: Nonsensical, perseverative TC: Denies any SI/HI, no reported AH/VH Insight/ judgment: Impaired - Time Spent With Patient Time Spent With Patient: 20" - Pending Discharge Pending Discharge Within 24 Hours: No Pending Discharge Within 48 Hours: No ICD10 Worksheet Patient Problems: Problems Problem Status Onset Bipolar 1 disorder Acute Altered mental status Active Bipolar disorder Active
[2017-10-27] MEDS: cloZAPine 100 MG TAB PO SCH (21:14)
[2017-10-28] MEDS: DIVALPROEX NA 250 MG TAB PO SCH ×2 (08:54→19:19)
[2017-10-28] MEDS: LITHIUM CARBONATE ER 300 MG TAB PO SCH ×2 (08:54→19:20)
[2017-10-28] MEDS: LORazepam 1 MG TAB PO SCH ×2 (08:54→16:07)
[2017-10-28] MEDS: LEVOTHYROXINE 100 MCG TAB PO SCH (08:55)
[2017-10-28] MEDS: PROPRANOLOL HCL 10 MG TAB PO SCH ×2 (08:55→21:31)
[2017-10-28] MEDS: POLYETHYLENE GLYCOL 3350 17 GM PKT PO SCH (13:08)
[2017-10-28] MEDS: PSYLLIUM METAMUCIL 1 PKT PO SCH (13:08)
--- NOTE | 2017-10-28 15:51 | SOAPPROG ---
SOAP Progress Note Assessment/Plan: Assessment: Per Dr. Gerber's Recent Notes: 10/19/17 17:47 Catatonia/BAD: Continued slow improvement. Will CCM, evaluate benefit of VPA, restart lithium on Thursday. 10/20/17 16:21 Catatonia/BAD: Notably calmer, continued improvement. CCM. Restart lithium tomorrow. VPA level on . 10/21/17 15:06 Catatonia/BAD: No interval change. Will restart lithium tonight. Hold ECT until Thursday to allow mental status to clear a bit and to establish meds. Subjective: Pt seen, discussed with staff. Remains agitated, but gradually clearing. Underwent ECT this morning without complication. Compliant with meds. Slept well without trazodone. 10/22/17 11:26 1. Patient presents less restless and excitable, however she remains intermittently agitated and labile, as well as disoriented at times. 2. VPA was ordered today - results still pending 3. Patient will not have ECT on Thursday per Dr. Gerber's recommendation. Will resume on Thursday. 10/23/17 13:37 1. Staff report patient woke up in middle of night and was delirious, crawling on floor, but later went to bed and slept almost 10 hrs. 2. Meds were held last night d/t AMS by MD service consultant. 3. Today, patient was more restless and excitable. Her behavior is more consistent with her presentation over the course of first several weeks of her admission. She is talking nonsensically and illogically and has persistent restless, purposeless movements. 4. VPA level last night was 75.7 and [place] level was <0.2. 4. MD made the following meds adjustments: -Change lithium to 300mg BID -Keep VPA same -Decrease Ativan dose as this may be causing delirium, especially in combo with Clozaril -Will temporarily lower dose of Clozaril to 150mg QHS until issues with AMS are resolved 5. Patient has done well on combo of Clozaril, VPA and [place] for Bipolar DO with maintenance ECT in past. Will hope to resume her usual outpatient med regimen once catatonia is fully resolved. 6. Patient will resume ECT on Thursday. 7. Will monitor over w/e and adjust meds as needed 10/24/17 12:16 1. No recurrence of delirium or AMS since med changes yesterday. She slept 9 hrs last night with no THU waking or incontinence. 2. Patient still restless, excitable, but was able to participate in art group without getting up out of seat x 30 min, and no disruptive behavior. 3. CCM - patient more stable today 4. Expect ECT on Thursday10/25/17 11:34 1. Patient had difficult afternoon yesterday after phone call with . Today, her mood is elevated and she is pleasant and positive. Not much else about her presentation has significantly changed. 2. CCM - more stable today 3. ECT scheduled Thursday at 7am 10/27/17 14:[address] Gaona did ECT #18 on Thursday. Next ECT on Thursday. 2. Will continue on current meds, though, there is plenty of room to move on VPA , Clozaril and [place] doses, both Dr. Gaona and I agree that waiting to titrate meds further is warranted given her recent episode of AMS and confusions. There has been no recurrence since last Thursday. However, patient remains labile, likely d/t her developmental delay and bipolar. We may actually be seeing more of her underlying baseline cognitive and emotional functioning as a result of the acute effects of ECT which seem to have had some improvement on her excitable catatonia. 3. Patient remains on LOS after ECT and at night d/t risk fo fall. No falls reported today. 10/28/17 15:47 1. Patient remains intrusive and pressured speech, however, less signs of excitability. Behaviors now seem more consistent with lorena and developmental dealy rather than catatonia. No recurrence of confusions or AMS. Less labile emotionally. 2. Will continue current doses of meds until ECT completed. 3. No falls x 48 hrs. Subjective: Met with patient, reviewed chart and d/w staff. Patient approached MD and every other staff with request to "speak to you for 5 minutes" even after MD had spoken to patient twice. She is less emotionally labile today, no crying spells. She did have one outburst when she called another patient a "motherfucker" after that patient provoked her by saying her was cheating on her. Daya was later able to sit on couch next to this patient and both behaved appropriately. Objective: Vital Signs Temp Pulse Resp BP Pulse Ox 37.1 C 102 H 14 160/56 H 96 10/26/17 07:56 10/28/17 08:55 10/28/17 06:27 10/28/17 08:55 10/28/17 06:27 Laboratory Results 10/22/17 23:30 10/22/17 23:30 MSE: Affect: Elevated, irritable at times Mood: "OK" TP: DANIELA, less nonsensical TC: No SI/HI, no AH/VH Insight/Judgment: Impaired - Time Spent With Patient Time Spent With Patient: 20" - Pending Discharge Pending Discharge Within 24 Hours: No Pending Discharge Within 48 Hours: No ICD10 Worksheet Patient Problems: Problems Problem Status Onset Bipolar 1 disorder Acute Altered mental status Active Bipolar disorder Active
[2017-10-28] MEDS: cloZAPine 100 MG TAB PO SCH (19:19)
[2017-10-29] MEDS: LORazepam 1 MG TAB PO SCH ×2 (08:55→15:34)
[2017-10-29] MEDS: DIVALPROEX NA 250 MG TAB PO SCH ×2 (08:55→17:29)
[2017-10-29] MEDS: PROPRANOLOL HCL 10 MG TAB PO SCH ×2 (08:56→17:30)
[2017-10-29] MEDS: LITHIUM CARBONATE ER 300 MG TAB PO SCH ×2 (08:56→17:30)
[2017-10-29] MEDS: POLYETHYLENE GLYCOL 3350 17 GM PKT PO SCH (09:09)
[2017-10-29] MEDS: PSYLLIUM METAMUCIL 1 PKT PO SCH (09:09)
[2017-10-29] MEDS: LEVOTHYROXINE 100 MCG TAB PO SCH (10:34)
--- NOTE | 2017-10-29 13:15 | SOAPPROG ---
SOAP Progress Note Assessment/Plan: Assessment: Per Dr. Gerber's Recent Notes: 10/19/17 17:47 Catatonia/BAD: Continued slow improvement. Will CCM, evaluate benefit of VPA, restart lithium on Thursday. 10/20/17 16:21 Catatonia/BAD: Notably calmer, continued improvement. CCM. Restart lithium tomorrow. VPA level on . 10/21/17 15:06 Catatonia/BAD: No interval change. Will restart lithium tonight. Hold ECT until Thursday to allow mental status to clear a bit and to establish meds. Subjective: Pt seen, discussed with staff. Remains agitated, but gradually clearing. Underwent ECT this morning without complication. Compliant with meds. Slept well without trazodone. 10/22/17 11:26 1. Patient presents less restless and excitable, however she remains intermittently agitated and labile, as well as disoriented at times. 2. VPA was ordered today - results still pending 3. Patient will not have ECT on Thursday per Dr. Gerber's recommendation. Will resume on Thursday. 10/23/17 13:37 1. Staff report patient woke up in middle of night and was delirious, crawling on floor, but later went to bed and slept almost 10 hrs. 2. Meds were held last night d/t AMS by MD demolitionist. 3. Today, patient was more restless and excitable. Her behavior is more consistent with her presentation over the course of first several weeks of her admission. She is talking nonsensically and illogically and has persistent restless, purposeless movements. 4. VPA level last night was 75.7 and [place] level was <0.2. 4. MD made the following meds adjustments: -Change lithium to 300mg BID -Keep VPA same -Decrease Ativan dose as this may be causing delirium, especially in combo with Clozaril -Will temporarily lower dose of Clozaril to 150mg QHS until issues with AMS are resolved 5. Patient has done well on combo of Clozaril, VPA and [place] for Bipolar DO with maintenance ECT in past. Will hope to resume her usual outpatient med regimen once catatonia is fully resolved. 6. Patient will resume ECT on Thursday. 7. Will monitor over w/e and adjust meds as needed 10/24/17 12:16 1. No recurrence of delirium or AMS since med changes yesterday. She slept 9 hrs last night with no THU waking or incontinence. 2. Patient still restless, excitable, but was able to participate in art group without getting up out of seat x 30 min, and no disruptive behavior. 3. CCM - patient more stable today 4. Expect ECT on Thursday10/25/17 11:34 1. Patient had difficult afternoon yesterday after phone call with . Today, her mood is elevated and she is pleasant and positive. Not much else about her presentation has significantly changed. 2. CCM - more stable today 3. ECT scheduled Thursday at 7am 10/27/17 14:[address] Gaona did ECT #18 on Thursday. Next ECT on Thursday. 2. Will continue on current meds, though, there is plenty of room to move on VPA , Clozaril and [place] doses, both Dr. Gaona and I agree that waiting to titrate meds further is warranted given her recent episode of AMS and confusions. There has been no recurrence since last Thursday. However, patient remains labile, likely d/t her developmental delay and bipolar. We may actually be seeing more of her underlying baseline cognitive and emotional functioning as a result of the acute effects of ECT which seem to have had some improvement on her excitable catatonia. 3. Patient remains on LOS after ECT and at night d/t risk fo fall. No falls reported today. 10/28/17 15:47 1. Patient remains intrusive and pressured speech, however, less signs of excitability. Behaviors now seem more consistent with lorena and developmental dealy rather than catatonia. No recurrence of confusions or AMS. Less labile emotionally. 2. Will continue current doses of meds until ECT completed. 3. No falls x 48 hrs. 10/29/17 13:12 1. Patient slept 9.5 hrs last night. She is eating 75-95% of meals. 2. Patient remains labile, but not as tearful or sad. 3. CCM - no med changes Subjective: Met with patient, reviewed chart and d/w staff. Patient had angry outburst this AM, when she got mad at staff for not paying enough attention to her. This afternoon, she was less irritable and more cooperative. She continues to talk constantly and has DANIELA and racing thoughts, however, her questions are more logical and relevant. Staff report she has made threats about hurting herself but usually whenever staff don't stop what they are doing and give her their undivided attention immediately. Her behaviors are much more child-like compared to when she was first admitted and her purposeless behaviors were more consistent with excitable catatonia. believes this indicates patient is approaching her baseline, since these child-like, repetitive behaviors are more consistent with the way she is at home. Objective: Vital Signs Temp Pulse Resp BP Pulse Ox 37.1 C 99 14 118/56 L 96 10/26/17 07:56 10/29/17 08:56 10/28/17 06:27 10/29/17 08:56 10/28/17 06:27 Laboratory Results 10/22/17 23:30 10/22/17 23:30 MSE: Affect: Elevated, irritable at times Mood: "OK" TP: More logical and coherent, thought still loose TC: SI but only when not getting attention on demand, no psychotic sxs Insight/Judgment: Poor - Time Spent With Patient Time Spent With Patient: 20" - Pending Discharge Pending Discharge Within 24 Hours: No Pending Discharge Within 48 Hours: No ICD10 Worksheet Patient Problems: Problems Problem Status Onset Bipolar 1 disorder Acute Altered mental status Active Bipolar disorder Active
[2017-10-29] MEDS: cloZAPine 100 MG TAB PO SCH (17:30)
[2017-10-30] MEDS ORDERED: LIDOCAINE 2% 5 ML SDV ID ONE (04:00)
[2017-10-30] MEDS ORDERED: CITRIC ACID/SODIUM CITRATE 30 ML UDCUP PO ONE (04:00)
[2017-10-30] MEDS ORDERED: ONDANSETRON DISINTEGRATING 4 MG TAB PO ONE (04:00)
[2017-10-30] MEDS ORDERED: NS 1,000 ML IV ONE (04:00)
[2017-10-30] MEDS ORDERED: KETOROLAC 30 MG/1 ML SDV ONE (04:42)
[2017-10-30] MEDS ORDERED: ONDANSETRON 4 MG/2 ML VIAL ONE (04:42)
[2017-10-30] MEDS ORDERED: GLYCOPYRROLATE 0.2 MG/1 ML VIAL ONE (04:42)
[2017-10-30] MEDS ORDERED: fentaNYL 100 MCG/2 ML INJ ONE (04:42)
[2017-10-30] MEDS ORDERED: MIDAZOLAM 2 MG/2 ML VIAL ONE (04:42)
[2017-10-30] MEDS ORDERED: PROPOFOL 200 MG/20 ML VIAL ONE (04:42)
[2017-10-30] MEDS ORDERED: ETOMIDATE 20 MG/10 ML VIAL ONE (04:43)
[2017-10-30] MEDS ORDERED: ROCURONIUM 50 MG/5 ML VIAL ONE (04:43)
[2017-10-30] MEDS ORDERED: SUGAMMADEX SODIUM 200 MG/2 ML VIAL IVP ONE (04:43)
[2017-10-30] MEDS ORDERED: ONDANSETRON DISINTEGRATING 4 MG TAB ONE (06:06)
[2017-10-30] MEDS ORDERED: CITRIC ACID/SODIUM CITRATE 30 ML UDCUP ONE (06:07)
[2017-10-30] MEDS: PROPRANOLOL HCL 10 MG TAB PO SCH ×2 (06:15→17:54)
[2017-10-30] MEDS: LEVOTHYROXINE 100 MCG TAB PO SCH (08:52)
[2017-10-30] MEDS: LITHIUM CARBONATE ER 300 MG TAB PO SCH ×2 (08:52→17:52)
[2017-10-30] MEDS: LORazepam 1 MG TAB PO SCH ×2 (08:52→15:46)
[2017-10-30] MEDS: DIVALPROEX NA 250 MG TAB PO SCH ×2 (08:52→17:52)
--- NOTE | 2017-10-30 08:52 | SOAPPROG ---
SOAP Progress Note Assessment/Plan: Assessment: Bipolar I, manic with psychotic and catatonic features, h/o NMS, develomental delay Plan: Read and appreciate MD notes on Daya. Her catatonic excitement is still present but abating slowly. Agitated, disorganized TPs, pressured speech, random , perseverative TC, nil insight/judgement. Disheveled appearance/dress. Plan Cont acute B ECT. Will hold Li for duration of acute ECT to mitigate cognitive impact with intention to restart immediately upon d/c of 3x/week phase of treatment. Understand plan to restart VPA on Thursday, but will hold its dose--as well as benzo--the hs prior to treatments to allow for more robust treatments. Remains gravely disabled. 10/14/17 07:32 10/15/17 15:15 Met with Daya and her father in presence of Dora Mcneill RN. Daya remains disorganized in speech and behavior, with ceaseless activity which is purposeless and intrusive to staff and peers. Rambling nonsensically. Despite this presentation, father corroborates that the INTENSITY of such symptoms is actually reduced since ECT initiated. Father on board with notion of starting VPA tomorrow. ALthough this med may lead to less intense ECT, its virtues likely outweigh this detriment. 10/16/17 07:06 Pt still quite disorganized and expansive, unable to sit still or attend for any sustained period. This after 15 acute B ECTs. Depakote 750 bid started today. Cont ECT into next week. 10/26/17 08:11 Pt seen prior to ECT. Chart reviewed. Notable for period of increased disorganization a few days ago, thought to be some confluence of meds with her acute ECT. Some meds were reduced and pt had a five day respite from ECT leading to today. As of today, pt is expansive, giggling inappropriately, repeating the same nonsensical "joke" in perseverative manner. RN notes multiple bruises and pt indicated she has been falling. Will ensure she is on fall precaution or LOS. Will cont ECT, but only 2x/week this week given recent MS change. Level of Li and VPA reveal some room to increase Li, but will hold off for now given possible instability, likely the cumulative effect of meds and ECT. 10/30/17 08:[address] Hassan's notes and CC/RN notes. Reviewed labs and vitals. Pt still on LOS days of ECT and each field recruiter due to fall risk. Her degree of behavioral disorganization is improving, but, I believe, not at her near- euthymic baseline (which is affected by her residual mood/psychotic symtoms and developmental delay). She is less distractible, impulsive, intrusive, non- sensically perseverative. Will re check Li level on Thursday. Will allow Dr Gerber to assess her on Thursday for whether he believes her ECT should be further tapered from 2x/week to just 1x next week. She is scheduled, provisionally, for Thursday and Thursday at this point. Family should be consulted by CC to determine, in a visit to patient, how close to baseline she is. 10/30/17 08:52 Objective: Vital Signs Temp Pulse Resp BP Pulse Ox 36.7 C 102 H 20 121/38 H 93 10/30/17 07:16 10/30/17 07:16 10/30/17 07:16 10/30/17 07:16 10/30/17 07:16 Laboratory Results 10/22/17 23:30 10/22/17 23:30 Laboratory Tests 10/22/17 23:30 Valproic Acid 75.7 [place] < 0.2 L ICD10 Worksheet Patient Problems: Problems Problem Status Onset Bipolar 1 disorder Acute Altered mental status Active Bipolar disorder Active
[2017-10-30] MEDS: PSYLLIUM METAMUCIL 1 PKT PO SCH (10:12)
[2017-10-30] MEDS: POLYETHYLENE GLYCOL 3350 17 GM PKT PO SCH (10:12)
[2017-10-30] MEDS: cloZAPine 100 MG TAB PO SCH (17:53)
[2017-10-31] MEDS: PSYLLIUM METAMUCIL 1 PKT PO SCH (07:53)
[2017-10-31] MEDS: POLYETHYLENE GLYCOL 3350 17 GM PKT PO SCH (07:54)
[2017-10-31] MEDS: LEVOTHYROXINE 100 MCG TAB PO SCH (08:36)
[2017-10-31] MEDS: LORazepam 1 MG TAB PO SCH ×2 (08:36→16:09)
[2017-10-31] MEDS: DIVALPROEX NA 250 MG TAB PO SCH ×2 (08:36→18:35)
[2017-10-31] MEDS: LITHIUM CARBONATE ER 300 MG TAB PO SCH ×2 (08:36→18:36)
[2017-10-31] MEDS: PROPRANOLOL HCL 10 MG TAB PO SCH ×2 (08:36→18:32)
--- NOTE | 2017-10-31 13:34 | SOAPPROG ---
SOAP Progress Note Assessment/Plan: Assessment: Per Dr. Gerber's Recent Notes: 10/19/17 17:47 Catatonia/BAD: Continued slow improvement. Will CCM, evaluate benefit of VPA, restart lithium on Thursday. 10/20/17 16:21 Catatonia/BAD: Notably calmer, continued improvement. CCM. Restart lithium tomorrow. VPA level on . 10/21/17 15:06 Catatonia/BAD: No interval change. Will restart lithium tonight. Hold ECT until Thursday to allow mental status to clear a bit and to establish meds. Subjective: Pt seen, discussed with staff. Remains agitated, but gradually clearing. Underwent ECT this morning without complication. Compliant with meds. Slept well without trazodone. 10/22/17 11:26 1. Patient presents less restless and excitable, however she remains intermittently agitated and labile, as well as disoriented at times. 2. VPA was ordered today - results still pending 3. Patient will not have ECT on Thursday per Dr. Gerber's recommendation. Will resume on Thursday. 10/23/17 13:37 1. Staff report patient woke up in middle of night and was delirious, crawling on floor, but later went to bed and slept almost 10 hrs. 2. Meds were held last night d/t AMS by MD truck driver salesperson. 3. Today, patient was more restless and excitable. Her behavior is more consistent with her presentation over the course of first several weeks of her admission. She is talking nonsensically and illogically and has persistent restless, purposeless movements. 4. VPA level last night was 75.7 and [place] level was <0.2. 4. MD made the following meds adjustments: -Change lithium to 300mg BID -Keep VPA same -Decrease Ativan dose as this may be causing delirium, especially in combo with Clozaril -Will temporarily lower dose of Clozaril to 150mg QHS until issues with AMS are resolved 5. Patient has done well on combo of Clozaril, VPA and [place] for Bipolar DO with maintenance ECT in past. Will hope to resume her usual outpatient med regimen once catatonia is fully resolved. 6. Patient will resume ECT on Thursday. 7. Will monitor over w/e and adjust meds as needed 10/24/17 12:16 1. No recurrence of delirium or AMS since med changes yesterday. She slept 9 hrs last night with no THU waking or incontinence. 2. Patient still restless, excitable, but was able to participate in art group without getting up out of seat x 30 min, and no disruptive behavior. 3. CCM - patient more stable today 4. Expect ECT on Thursday10/25/17 11:34 1. Patient had difficult afternoon yesterday after phone call with . Today, her mood is elevated and she is pleasant and positive. Not much else about her presentation has significantly changed. 2. CCM - more stable today 3. ECT scheduled Thursday at 7am 10/27/17 14:[address] Gaona did ECT #18 on Thursday. Next ECT on Thursday. 2. Will continue on current meds, though, there is plenty of room to move on VPA , Clozaril and [place] doses, both Dr. Gaona and I agree that waiting to titrate meds further is warranted given her recent episode of AMS and confusions. There has been no recurrence since last Thursday. However, patient remains labile, likely d/t her developmental delay and bipolar. We may actually be seeing more of her underlying baseline cognitive and emotional functioning as a result of the acute effects of ECT which seem to have had some improvement on her excitable catatonia. 3. Patient remains on LOS after ECT and at night d/t risk fo fall. No falls reported today. 10/28/17 15:47 1. Patient remains intrusive and pressured speech, however, less signs of excitability. Behaviors now seem more consistent with lorena and developmental dealy rather than catatonia. No recurrence of confusions or AMS. Less labile emotionally. 2. Will continue current doses of meds until ECT completed. 3. No falls x 48 hrs. 10/29/17 13:12 1. Patient slept 9.5 hrs last night. She is eating 75-95% of meals. 2. Patient remains labile, but not as tearful or sad. 3. CCM - no med changes 10/31/17 13:21 1. Essentially no change. Patient still presents labile, restless, talkative. She is able to attend group therapy with minimal disruption. 2. Patient was moved to new room last night to minimize fall risk. She is on behavioral support plan with fluid restriction in evenings to reduce risk of incontinence. 3. RN was unable to draw blood this AM for [place] level. MD will order lithium and VPA level for Mon AM so blood can be drawn prior to ECT. Subjective: Met with patient, reviewed chart and d/w staff. Patient is still intrusive, labile, restless, talkative. However, she was able to sit through group therapy with minimal disruption and there have been no irritable outbursts or crying spells today. Objective: Vital Signs Temp Pulse Resp BP Pulse Ox 36.6 C 94 18 101/50 L 100 10/31/17 00:30 10/31/17 08:00 10/31/17 08:00 10/31/17 08:00 10/31/17 08:00 Laboratory Results 10/22/17 23:30 10/22/17 23:30 MSE: Affect: Elevated Mood: Labile TP: More coherent, though still loose most of the time TC: No SI/HI, no AH/VH Insight/Judgment: Impaired - Time Spent With Patient Time Spent With Patient: 20" - Pending Discharge Pending Discharge Within 24 Hours: No Pending Discharge Within 48 Hours: No ICD10 Worksheet Patient Problems: Problems Problem Status Onset Bipolar 1 disorder Acute Altered mental status Active Bipolar disorder Active
[2017-10-31] MEDS: cloZAPine 100 MG TAB PO SCH (18:36)
[2017-11-01] MEDS: PSYLLIUM METAMUCIL 1 PKT PO SCH (07:36)
[2017-11-01] MEDS: POLYETHYLENE GLYCOL 3350 17 GM PKT PO SCH (07:36)
[2017-11-01] MEDS: PROPRANOLOL HCL 10 MG TAB PO SCH ×2 (07:38→18:19)
[2017-11-01] MEDS: LEVOTHYROXINE 100 MCG TAB PO SCH (08:45)
[2017-11-01] MEDS: LORazepam 1 MG TAB PO SCH ×2 (08:45→15:35)
[2017-11-01] MEDS: DIVALPROEX NA 250 MG TAB PO SCH ×2 (08:45→18:12)
[2017-11-01] MEDS: LITHIUM CARBONATE ER 300 MG TAB PO SCH ×2 (08:46→18:12)
--- NOTE | 2017-11-01 12:06 | SOAPPROG ---
SOAP Progress Note Assessment/Plan: Assessment: Per Dr. Gerber's Recent Notes: 10/19/17 17:47 Catatonia/BAD: Continued slow improvement. Will CCM, evaluate benefit of VPA, restart lithium on Thursday. 10/20/17 16:21 Catatonia/BAD: Notably calmer, continued improvement. CCM. Restart lithium tomorrow. VPA level on . 10/21/17 15:06 Catatonia/BAD: No interval change. Will restart lithium tonight. Hold ECT until Thursday to allow mental status to clear a bit and to establish meds. Subjective: Pt seen, discussed with staff. Remains agitated, but gradually clearing. Underwent ECT this morning without complication. Compliant with meds. Slept well without trazodone. 10/22/17 11:26 1. Patient presents less restless and excitable, however she remains intermittently agitated and labile, as well as disoriented at times. 2. VPA was ordered today - results still pending 3. Patient will not have ECT on Thursday per Dr. Gerber's recommendation. Will resume on Thursday. 10/23/17 13:37 1. Staff report patient woke up in middle of night and was delirious, crawling on floor, but later went to bed and slept almost 10 hrs. 2. 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 3. Today, patient was more restless and excitable. Her behavior is more consistent with her presentation over the course of first several weeks of her admission. She is talking nonsensically and illogically and has persistent restless, purposeless movements. 4. VPA level last night was 75.7 and Vashon level was <0.2. 4. MD made the following meds adjustments: -Change lithium to 300mg BID -Keep VPA same -Decrease Ativan dose as this may be causing delirium, especially in combo with Clozaril -Will temporarily lower dose of Clozaril to 150mg QHS until issues with AMS are resolved 5. Patient has done well on combo of Clozaril, VPA and Vashon for Bipolar DO with maintenance ECT in past. Will hope to resume her usual outpatient med regimen once catatonia is fully resolved. 6. Patient will resume ECT on Thursday. 7. Will monitor over w/e and adjust meds as needed 10/24/17 12:16 1. No recurrence of delirium or AMS since med changes yesterday. She slept 9 hrs last night with no THU waking or incontinence. 2. Patient still restless, excitable, but was able to participate in art group without getting up out of seat x 30 min, and no disruptive behavior. 3. CCM - patient more stable today 4. Expect ECT on Thursday10/25/17 11:34 1. Patient had difficult afternoon yesterday after phone call with . Today, her mood is elevated and she is pleasant and positive. Not much else about her presentation has significantly changed. 2. CCM - more stable today 3. ECT scheduled Thursday at 7am 10/27/17 14:[address] Gaona did ECT #18 on Thursday. Next ECT on Thursday. 2. Will continue on current meds, though, there is plenty of room to move on VPA , Clozaril and Vashon doses, both Dr. Gaona and I agree that waiting to titrate meds further is warranted given her recent episode of AMS and confusions. There has been no recurrence since last Thursday. However, patient remains labile, likely d/t her developmental delay and bipolar. We may actually be seeing more of her underlying baseline cognitive and emotional functioning as a result of the acute effects of ECT which seem to have had some improvement on her excitable catatonia. 3. Patient remains on LOS after ECT and at night d/t risk fo fall. No falls reported today. 10/28/17 15:47 1. Patient remains intrusive and pressured speech, however, less signs of excitability. Behaviors now seem more consistent with lorena and developmental dealy rather than catatonia. No recurrence of confusions or AMS. Less labile emotionally. 2. Will continue current doses of meds until ECT completed. 3. No falls x 48 hrs. 10/29/17 13:12 1. Patient slept 9.5 hrs last night. She is eating 75-95% of meals. 2. Patient remains labile, but not as tearful or sad. 3. CCM - no med changes 10/31/17 13:21 1. Essentially no change. Patient still presents labile, restless, talkative. She is able to attend group therapy with minimal disruption. 2. Patient was moved to new room last night to minimize fall risk. She is on behavioral support plan with fluid restriction in evenings to reduce risk of incontinence. 3. RN was unable to draw blood this AM for Vashon level. MD will order lithium and VPA level for Mon AM so blood can be drawn prior to ECT. 11/01/17 12:00 1. Continue behavior support plan to reduce fall risk. No falls x > 72 hrs. 2. Patient has been incontinent x 1 for last 2 nights despite fluid restriction. 3. Vashon and VPA levels scheduled for 11/02/17. RNs not able to draw blood on unit. May need to be done while she's in ECT. 4. No med changes for now Subjective: Met with patient, reviewed chart and d/w staff. Patient was divina and blunt with MD this AM. She said, "stop saying mean things" even before MD had spoken. Staff report in general she is less irritable today than yesterday. She was giddy, laughing inappropriately and smiling when MD observed her walking up and down hallway with another peer. She was initially disruptive in art therapy group interrupting the group accounts receivable supervisor and not letting anyone else get a word in. However, after several prompts, she did stop speaking and stayed quiet while peers selected songs to listen to. She has been wearing fall socks on unit throughout the day and at night to bed. She has been incontinent twice the past 2 days despite being on fluid restriction. However, she has not fallen. Objective: Vital Signs Temp Pulse Resp BP Pulse Ox 36.7 C 97 18 119/55 L 98 10/31/17 15:36 11/01/17 08:00 11/01/17 08:00 11/01/17 08:00 11/01/17 08:00 Laboratory Results 10/22/17 23:30 10/22/17 23:30 MSE: Affect: Elevated, giddy Mood: "Good" TP: Tangential, loose TC: Denies any SI/HI, no AH/VH Insight/Judgment: Poor - Time Spent With Patient Time Spent With Patient: 20" - Pending Discharge Pending Discharge Within 24 Hours: No Pending Discharge Within 48 Hours: No ICD10 Worksheet Patient Problems: Problems Problem Status Onset Bipolar 1 disorder Acute Altered mental status Active Bipolar disorder Active
[2017-11-01] MEDS: cloZAPine 100 MG TAB PO SCH (18:15)
[2017-11-02] MEDS ORDERED: KETOROLAC 30 MG/1 ML SDV ONE (05:34)
[2017-11-02] MEDS ORDERED: ETOMIDATE 20 MG/10 ML VIAL ONE (05:34)
[2017-11-02] MEDS ORDERED: GLYCOPYRROLATE 0.2 MG/1 ML VIAL ONE (05:34)
[2017-11-02] MEDS ORDERED: fentaNYL 100 MCG/2 ML INJ ONE (05:34)
[2017-11-02] MEDS ORDERED: MIDAZOLAM 2 MG/2 ML VIAL ONE ×2 (05:34→05:35)
[2017-11-02] MEDS ORDERED: ONDANSETRON 4 MG/2 ML VIAL ONE (05:34)
[2017-11-02] MEDS ORDERED: PROPOFOL 200 MG/20 ML VIAL ONE (05:34)
[2017-11-02] MEDS ORDERED: SUGAMMADEX SODIUM 200 MG/2 ML VIAL IVP ONE ×2 (05:35→08:31)
[2017-11-02] MEDS ORDERED: ROCURONIUM 50 MG/5 ML VIAL ONE (05:35)
[2017-11-02] MEDS ORDERED: ONDANSETRON DISINTEGRATING 4 MG TAB ONE (08:11)
[2017-11-02] MEDS ORDERED: CITRIC ACID/SODIUM CITRATE 30 ML UDCUP ONE (08:11)
[2017-11-02] MEDS: LITHIUM CARBONATE ER 300 MG TAB PO SCH ×2 (09:59→20:15)
[2017-11-02] MEDS: PROPRANOLOL HCL 10 MG TAB PO SCH ×3 (10:00→20:18)
[2017-11-02] MEDS: LORazepam 1 MG TAB PO SCH ×2 (10:00→15:52)
[2017-11-02] MEDS: DIVALPROEX NA 250 MG TAB PO SCH ×2 (10:01→20:15)
[2017-11-02] MEDS: POLYETHYLENE GLYCOL 3350 17 GM PKT PO SCH (10:03)
[2017-11-02] MEDS: PSYLLIUM METAMUCIL 1 PKT PO SCH (10:06)
[2017-11-02] MEDS: LEVOTHYROXINE 100 MCG TAB PO SCH (10:36)
[2017-11-02 11:07] LABS: LITHIUM 0.4 mEq/L (0.6-1.2)
--- NOTE | 2017-11-02 17:41 | SOAPPROG ---
SOAP Progress Note Assessment/Plan: Assessment: Plan: 09/18/17 14:58 No improvement yet. [facility]. 09/19/17 07:21 Some improvement noted. Will [facility] inc: acute course ECT and holding meds. Will restart meds when pt has largely responded to ECT to avoid interfering with the treatments or contributing to confusion (lithium.) 09/22/17 18:50 Remaiuns psychotic CCM. 09/22/17 18:52 Catatonic excitement: some improvement. [facility]. 09/23/17 16:31 Catatonic excitement: Slow improvement. CCM. 09/24/17 17:18 Catatonia: Continued slow improvement. [facility]. 09/25/17 11:35 Catatonia: Continued improvement. [facility]. 09/28/17 17:16 Catatonia: Slow improvement. Court order granted. [facility] with continued titration of Clozaril. 09/29/17 13:55 Catatonia. remains quite ill. I reviewed pt's past treatment in 2011 when she was in a similar state and she required 18 acute treatments prior to transfer to SNF to continue outpatient ECT. She has had 7 so far in this acute course. [facility]. 09/30/17 17:29 Catatonia: Slow improvement. [facility]. 10/01/17 20:01 Cataonia: Continued gradual improvement. [facility]. 10/02/17 23:04 Catatonia: Improving. [facility]. 10/05/17 15:57 Catatonia/bipolar d/o: SLow improvement. Will increase propranolol to help with continued tachycardia, mild HTN, and possibly impulsiveness. Continue acute course ECT. Staff will continue to encourage PO intake. 10/06/17 17:10 Catatonia/BAD: Continued improvement. Seems to be gaining momentum. [facility]. 10/07/17 17:39 Catatonia/BAD: Slow improvement. [facility]. 10/09/17 16:05 Catatonia/BAD: Continued Slow improvement. [facility]. 10/12/17 15:23 Catatonia/BAD: Continued improvement. [facility]. Family meeting tomorrow at 1030. 10/13/17 16:33 Catatonia/BAD: Has plateaued over past several days. Will continue ECT, restart VPA on Thursday. 10/19/17 17:47 Catatonia/BAD: Continued slow improvement. Will [facility], evaluate benefit of VPA, restart lithium on Thursday. 10/20/17 16:21 Catatonia/BAD: Notably calmer, continued improvement. CCM. Restart lithium tomorrow. VPA level on . 10/21/17 15:06 Catatonia/BAD: No interval change. Will restart lithium tonight. Hold ECT until Thursday to allow mental status to clear a bit and to establish meds. 11/02/17 17:37 Catatonia/BAD: Catatonia has resolved. Erlinda has also resolved. She is now at a slightly exaggerated baseline. Will CCM, decrease frequency of ECT to twice a week, titrate meds to more therapeutic realm. Subjective: Pt seen, discussed with staff. Much calmer today, more appropriate, friendly and conversant. Comes into my office and interrupts me while I am talking to another patient to ask what "intrusive" means. Underwent ECT without complication. Objective: Vital Signs Temp Pulse Resp BP Pulse Ox 36.4 C 96 12 117/54 L 93 11/02/17 12:00 11/02/17 12:00 11/02/17 12:00 11/02/17 12:00 11/02/17 12:00 Laboratory Results 10/22/17 23:30 10/22/17 23:30 MSE: Activated, but calm, not agitated. Affect is bright, rather expansive, but pleasant and not irritable. Mood is "good." TP more linear, tangential at times. TC reveals no psychosis. Alert and well-oriented. - Time Spent With Patient Time Spent With Patient: 35" ICD10 Worksheet Patient Problems: Problems Problem Status Onset Bipolar 1 disorder Acute Altered mental status Active Bipolar disorder Active
[2017-11-02] MEDS: cloZAPine 100 MG TAB PO SCH (20:15)
[2017-11-03] MEDS: ACETAMINOPHEN 325 MG TAB PO PRN ×2 (05:45→20:24)
[2017-11-03] MEDS: DIVALPROEX NA 250 MG TAB PO SCH ×2 (09:01→20:02)
[2017-11-03] MEDS: LEVOTHYROXINE 100 MCG TAB PO SCH (09:02)
[2017-11-03] MEDS: LITHIUM CARBONATE ER 300 MG TAB PO SCH (09:02)
[2017-11-03] MEDS: LORazepam 1 MG TAB PO SCH ×2 (09:03→15:19)
[2017-11-03] MEDS: PROPRANOLOL HCL 10 MG TAB PO SCH ×2 (09:04→20:05)
[2017-11-03] MEDS: POLYETHYLENE GLYCOL 3350 17 GM PKT PO SCH (11:29)
[2017-11-03] MEDS: PSYLLIUM METAMUCIL 1 PKT PO SCH (11:46)
--- NOTE | 2017-11-03 17:33 | SOAPPROG ---
SOAP Progress Note Assessment/Plan: Assessment: Plan: 09/18/17 14:58 No improvement yet. [facility]. 09/19/17 07:21 Some improvement noted. Will [facility] inc: acute course ECT and holding meds. Will restart meds when pt has largely responded to ECT to avoid interfering with the treatments or contributing to confusion (lithium.) 09/22/17 18:50 Remaiuns psychotic CCM. 09/22/17 18:52 Catatonic excitement: some improvement. [facility]. 09/23/17 16:31 Catatonic excitement: Slow improvement. CCM. 09/24/17 17:18 Catatonia: Continued slow improvement. [facility]. 09/25/17 11:35 Catatonia: Continued improvement. [facility]. 09/28/17 17:16 Catatonia: Slow improvement. Court order granted. [facility] with continued titration of Clozaril. 09/29/17 13:55 Catatonia. remains quite ill. I reviewed pt's past treatment in 2011 when she was in a similar state and she required 18 acute treatments prior to transfer to SNF to continue outpatient ECT. She has had 7 so far in this acute course. [facility]. 09/30/17 17:29 Catatonia: Slow improvement. [facility]. 10/01/17 20:01 Cataonia: Continued gradual improvement. [facility]. 10/02/17 23:04 Catatonia: Improving. [facility]. 10/05/17 15:57 Catatonia/bipolar d/o: SLow improvement. Will increase propranolol to help with continued tachycardia, mild HTN, and possibly impulsiveness. Continue acute course ECT. Staff will continue to encourage PO intake. 10/06/17 17:10 Catatonia/BAD: Continued improvement. Seems to be gaining momentum. [facility]. 10/07/17 17:39 Catatonia/BAD: Slow improvement. [facility]. 10/09/17 16:05 Catatonia/BAD: Continued Slow improvement. [facility]. 10/12/17 15:23 Catatonia/BAD: Continued improvement. [facility]. Family meeting tomorrow at 1030. 10/13/17 16:33 Catatonia/BAD: Has plateaued over past several days. Will continue ECT, restart VPA on Thursday. 10/19/17 17:47 Catatonia/BAD: Continued slow improvement. Will [facility], evaluate benefit of VPA, restart lithium on Thursday. 10/20/17 16:21 Catatonia/BAD: Notably calmer, continued improvement. CCM. Restart lithium tomorrow. VPA level on . 10/21/17 15:06 Catatonia/BAD: No interval change. Will restart lithium tonight. Hold ECT until Thursday to allow mental status to clear a bit and to establish meds. 11/02/17 17:37 Catatonia/BAD: Catatonia has resolved. Erlinda has also resolved. She is now at a slightly exaggerated baseline. Will CCM, decrease frequency of ECT to twice a week, titrate meds to more therapeutic realm. 11/03/17 17:31 BAD: Improved overall. Will titrate lithium to 900mg and clozapine back to 200mg. WIll monitor for any adverse cognitive effects from either. Will hold further ECT until 11/09/17 to allow for cruz cognitive recovery. Subjective: Pt seen, discussed with staff, chart reviewed. Case discussed with Dr. Hassan also. She is bright and interactive today again. Remains intrusive, but much less agitated. Able to appropriately discuss her d/c plan. Objective: Vital Signs Temp Pulse Resp BP Pulse Ox 36.6 C 88 14 104/52 L 95 11/03/17 15:35 11/03/17 15:35 11/03/17 15:35 11/03/17 15:35 11/03/17 15:35 Laboratory Results 10/22/17 23:30 10/22/17 23:30 MSE: Activated, but not agitated. Affect is elevated, pleasant and approp. Mood is "good." TP generally linear. No overt psychosis. - Time Spent With Patient Time Spent With Patient: 25" ICD10 Worksheet Patient Problems: Problems Problem Status Onset Bipolar 1 disorder Acute Altered mental status Active Bipolar disorder Active
[2017-11-03] MEDS: LITHIUM CARBONATE ER 450 MG TAB PO SCH (20:03)
[2017-11-03] MEDS: cloZAPine 100 MG TAB PO SCH (20:03)
[2017-11-04] MEDS: LORazepam 1 MG TAB PO SCH (08:31)
[2017-11-04] MEDS: LITHIUM CARBONATE ER 450 MG TAB PO SCH ×2 (08:31→20:17)
[2017-11-04] MEDS: DIVALPROEX NA 250 MG TAB PO SCH ×2 (08:31→20:18)
[2017-11-04] MEDS: PROPRANOLOL HCL 10 MG TAB PO SCH ×2 (08:31→20:18)
[2017-11-04] MEDS: PSYLLIUM METAMUCIL 1 PKT PO SCH (08:34)
[2017-11-04] MEDS: POLYETHYLENE GLYCOL 3350 17 GM PKT PO SCH (08:34)
[2017-11-04] MEDS: LEVOTHYROXINE 100 MCG TAB PO SCH (08:38)
[2017-11-04] MEDS: ACETAMINOPHEN 325 MG TAB PO PRN ×2 (08:39→15:51)
[2017-11-04] MEDS: LORazepam 0.5 MG TAB PO SCH (15:51)
--- NOTE | 2017-11-04 19:48 | SOAPPROG ---
SOAP Progress Note Assessment/Plan: Assessment: Plan: 09/18/17 14:58 No improvement yet. [facility]. 09/19/17 07:21 Some improvement noted. Will [facility] inc: acute course ECT and holding meds. Will restart meds when pt has largely responded to ECT to avoid interfering with the treatments or contributing to confusion (lithium.) 09/22/17 18:50 Remaiuns psychotic CCM. 09/22/17 18:52 Catatonic excitement: some improvement. [facility]. 09/23/17 16:31 Catatonic excitement: Slow improvement. CCM. 09/24/17 17:18 Catatonia: Continued slow improvement. [facility]. 09/25/17 11:35 Catatonia: Continued improvement. [facility]. 09/28/17 17:16 Catatonia: Slow improvement. Court order granted. [facility] with continued titration of Clozaril. 09/29/17 13:55 Catatonia. remains quite ill. I reviewed pt's past treatment in 2011 when she was in a similar state and she required 18 acute treatments prior to transfer to SNF to continue outpatient ECT. She has had 7 so far in this acute course. [facility]. 09/30/17 17:29 Catatonia: Slow improvement. [facility]. 10/01/17 20:01 Cataonia: Continued gradual improvement. [facility]. 10/02/17 23:04 Catatonia: Improving. [facility]. 10/05/17 15:57 Catatonia/bipolar d/o: SLow improvement. Will increase propranolol to help with continued tachycardia, mild HTN, and possibly impulsiveness. Continue acute course ECT. Staff will continue to encourage PO intake. 10/06/17 17:10 Catatonia/BAD: Continued improvement. Seems to be gaining momentum. [facility]. 10/07/17 17:39 Catatonia/BAD: Slow improvement. [facility]. 10/09/17 16:05 Catatonia/BAD: Continued Slow improvement. [facility]. 10/12/17 15:23 Catatonia/BAD: Continued improvement. [facility]. Family meeting tomorrow at 1030. 10/13/17 16:33 Catatonia/BAD: Has plateaued over past several days. Will continue ECT, restart VPA on Thursday. 10/19/17 17:47 Catatonia/BAD: Continued slow improvement. Will [facility], evaluate benefit of VPA, restart lithium on Thursday. 10/20/17 16:21 Catatonia/BAD: Notably calmer, continued improvement. CCM. Restart lithium tomorrow. VPA level on . 10/21/17 15:06 Catatonia/BAD: No interval change. Will restart lithium tonight. Hold ECT until Thursday to allow mental status to clear a bit and to establish meds. 11/02/17 17:37 Catatonia/BAD: Catatonia has resolved. Erlinda has also resolved. She is now at a slightly exaggerated baseline. Will CCM, decrease frequency of ECT to twice a week, titrate meds to more therapeutic realm. 11/03/17 17:31 BAD: Improved overall. Will titrate lithium to 900mg and clozapine back to 200mg. WIll monitor for any adverse cognitive effects from either. Will hold further ECT until 11/09/17 to allow for cruz cognitive recovery. 11/04/17 19:49 BAD: Doing well. Continue d/c planning. Subjective: Pt seen, discussed with staff. Reports feeling "really good." Remains intrusive and impulsive. Some agitation today. No aggression. Discussed d/c plan. She sees no benefit to going to [facility]. "I've done it before and it didn't help." I discussed the case with Dr. Vasques and she is in agreement with overall plan of care. Objective: Vital Signs Temp Pulse Resp BP Pulse Ox 36.5 C 85 15 122/56 H 97 11/04/17 16:31 11/04/17 16:31 11/04/17 16:31 11/04/17 16:31 11/04/17 16:31 Laboratory Results 10/22/17 23:30 10/22/17 23:30 MSE: Moderately agitated, coop. Affect is bright, expansive. Mood is "good." TP linear. No overt psychosis. - Time Spent With Patient Time Spent With Patient: 25" ICD10 Worksheet Patient Problems: Problems Problem Status Onset Bipolar 1 disorder Acute Altered mental status Active Bipolar disorder Active
[2017-11-04] MEDS: cloZAPine 100 MG TAB PO SCH (20:18)
[2017-11-05] MEDS: PSYLLIUM METAMUCIL 1 PKT PO SCH (07:50)
[2017-11-05] MEDS: POLYETHYLENE GLYCOL 3350 17 GM PKT PO SCH (07:50)
[2017-11-05] MEDS: DIVALPROEX NA 250 MG TAB PO SCH ×2 (09:01→20:27)
[2017-11-05] MEDS: PROPRANOLOL HCL 10 MG TAB PO SCH ×2 (09:01→20:49)
[2017-11-05] MEDS: LORazepam 0.5 MG TAB PO SCH ×2 (09:01→15:35)
[2017-11-05] MEDS: LITHIUM CARBONATE ER 450 MG TAB PO SCH ×2 (09:01→20:27)
[2017-11-05] MEDS: LEVOTHYROXINE 100 MCG TAB PO SCH (09:02)
--- NOTE | 2017-11-05 19:00 | SOAPPROG ---
SOAP Progress Note Assessment/Plan: Assessment: Plan: 09/18/17 14:58 No improvement yet. [facility]. 09/19/17 07:21 Some improvement noted. Will [facility] inc: acute course ECT and holding meds. Will restart meds when pt has largely responded to ECT to avoid interfering with the treatments or contributing to confusion (lithium.) 09/22/17 18:50 Remaiuns psychotic CCM. 09/22/17 18:52 Catatonic excitement: some improvement. [facility]. 09/23/17 16:31 Catatonic excitement: Slow improvement. CCM. 09/24/17 17:18 Catatonia: Continued slow improvement. [facility]. 09/25/17 11:35 Catatonia: Continued improvement. [facility]. 09/28/17 17:16 Catatonia: Slow improvement. Court order granted. [facility] with continued titration of Clozaril. 09/29/17 13:55 Catatonia. remains quite ill. I reviewed pt's past treatment in 2011 when she was in a similar state and she required 18 acute treatments prior to transfer to SNF to continue outpatient ECT. She has had 7 so far in this acute course. [facility]. 09/30/17 17:29 Catatonia: Slow improvement. [facility]. 10/01/17 20:01 Cataonia: Continued gradual improvement. [facility]. 10/02/17 23:04 Catatonia: Improving. [facility]. 10/05/17 15:57 Catatonia/bipolar d/o: SLow improvement. Will increase propranolol to help with continued tachycardia, mild HTN, and possibly impulsiveness. Continue acute course ECT. Staff will continue to encourage PO intake. 10/06/17 17:10 Catatonia/BAD: Continued improvement. Seems to be gaining momentum. [facility]. 10/07/17 17:39 Catatonia/BAD: Slow improvement. [facility]. 10/09/17 16:05 Catatonia/BAD: Continued Slow improvement. [facility]. 10/12/17 15:23 Catatonia/BAD: Continued improvement. [facility]. Family meeting tomorrow at 1030. 10/13/17 16:33 Catatonia/BAD: Has plateaued over past several days. Will continue ECT, restart VPA on Thursday. 10/19/17 17:47 Catatonia/BAD: Continued slow improvement. Will [facility], evaluate benefit of VPA, restart lithium on Thursday. 10/20/17 16:21 Catatonia/BAD: Notably calmer, continued improvement. CCM. Restart lithium tomorrow. VPA level on . 10/21/17 15:06 Catatonia/BAD: No interval change. Will restart lithium tonight. Hold ECT until Thursday to allow mental status to clear a bit and to establish meds. 11/02/17 17:37 Catatonia/BAD: Catatonia has resolved. Erlinda has also resolved. She is now at a slightly exaggerated baseline. Will CCM, decrease frequency of ECT to twice a week, titrate meds to more therapeutic realm. 11/03/17 17:31 BAD: Improved overall. Will titrate lithium to 900mg and clozapine back to 200mg. WIll monitor for any adverse cognitive effects from either. Will hold further ECT until 11/09/17 to allow for cruz cognitive recovery. 11/04/17 19:49 BAD: Doing well. Continue d/c planning. 11/05/17 19:00 BAD: Continued improvement. CCM. Subjective: Pt seen, discussed with staff. Pleasant and interactive. States she is ready to go home by next week. Remains intrusive and aggravating to fellow patients, though less irritable. Compliant with all meds. Objective: Vital Signs Temp Pulse Resp BP Pulse Ox 36.9 C 92 14 122/56 H 97 11/05/17 00:30 11/05/17 15:32 11/05/17 15:32 11/05/17 15:32 11/05/17 15:32 Laboratory Results 10/22/17 23:30 10/22/17 23:30 - Time Spent With Patient Time Spent With Patient: 25" ICD10 Worksheet Patient Problems: Problems Problem Status Onset Bipolar 1 disorder Acute Altered mental status Active Bipolar disorder Active
[2017-11-05] MEDS: cloZAPine 100 MG TAB PO SCH (20:28)
[2017-11-06] MEDS: ACETAMINOPHEN 325 MG TAB PO PRN (06:20)
[2017-11-06] MEDS: POLYETHYLENE GLYCOL 3350 17 GM PKT PO SCH (07:59)
[2017-11-06] MEDS: PSYLLIUM METAMUCIL 1 PKT PO SCH (07:59)
[2017-11-06] MEDS: PROPRANOLOL HCL 10 MG TAB PO SCH ×2 (09:09→20:45)
[2017-11-06] MEDS: DIVALPROEX NA 250 MG TAB PO SCH ×2 (09:10→20:45)
[2017-11-06] MEDS: LITHIUM CARBONATE ER 450 MG TAB PO SCH ×2 (09:10→20:45)
[2017-11-06] MEDS: LEVOTHYROXINE 100 MCG TAB PO SCH (09:10)
[2017-11-06] MEDS: LORazepam 0.5 MG TAB PO SCH (09:10)
[2017-11-06] MEDS: cloZAPine 100 MG TAB PO SCH (20:45)
--- NOTE | 2017-11-06 21:32 | SOAPPROG ---
SOAP Progress Note Assessment/Plan: Assessment: Plan: 09/18/17 14:58 No improvement yet. [facility]. 09/19/17 07:21 Some improvement noted. Will [facility] inc: acute course ECT and holding meds. Will restart meds when pt has largely responded to ECT to avoid interfering with the treatments or contributing to confusion (lithium.) 09/22/17 18:50 Remaiuns psychotic CCM. 09/22/17 18:52 Catatonic excitement: some improvement. [facility]. 09/23/17 16:31 Catatonic excitement: Slow improvement. CCM. 09/24/17 17:18 Catatonia: Continued slow improvement. [facility]. 09/25/17 11:35 Catatonia: Continued improvement. [facility]. 09/28/17 17:16 Catatonia: Slow improvement. Court order granted. [facility] with continued titration of Clozaril. 09/29/17 13:55 Catatonia. remains quite ill. I reviewed pt's past treatment in 2011 when she was in a similar state and she required 18 acute treatments prior to transfer to SNF to continue outpatient ECT. She has had 7 so far in this acute course. [facility]. 09/30/17 17:29 Catatonia: Slow improvement. [facility]. 10/01/17 20:01 Cataonia: Continued gradual improvement. [facility]. 10/02/17 23:04 Catatonia: Improving. [facility]. 10/05/17 15:57 Catatonia/bipolar d/o: SLow improvement. Will increase propranolol to help with continued tachycardia, mild HTN, and possibly impulsiveness. Continue acute course ECT. Staff will continue to encourage PO intake. 10/06/17 17:10 Catatonia/BAD: Continued improvement. Seems to be gaining momentum. [facility]. 10/07/17 17:39 Catatonia/BAD: Slow improvement. [facility]. 10/09/17 16:05 Catatonia/BAD: Continued Slow improvement. [facility]. 10/12/17 15:23 Catatonia/BAD: Continued improvement. [facility]. Family meeting tomorrow at 1030. 10/13/17 16:33 Catatonia/BAD: Has plateaued over past several days. Will continue ECT, restart VPA on Thursday. 10/19/17 17:47 Catatonia/BAD: Continued slow improvement. Will [facility], evaluate benefit of VPA, restart lithium on Thursday. 10/20/17 16:21 Catatonia/BAD: Notably calmer, continued improvement. CCM. Restart lithium tomorrow. VPA level on . 10/21/17 15:06 Catatonia/BAD: No interval change. Will restart lithium tonight. Hold ECT until Thursday to allow mental status to clear a bit and to establish meds. 11/02/17 17:37 Catatonia/BAD: Catatonia has resolved. Erlinda has also resolved. She is now at a slightly exaggerated baseline. Will CCM, decrease frequency of ECT to twice a week, titrate meds to more therapeutic realm. 11/03/17 17:31 BAD: Improved overall. Will titrate lithium to 900mg and clozapine back to 200mg. WIll monitor for any adverse cognitive effects from either. Will hold further ECT until 11/09/17 to allow for cruz cognitive recovery. 11/04/17 19:49 BAD: Doing well. Continue d/c planning. 11/05/17 19:00 BAD: Continued improvement. CCM. 11/06/17 21:31 BAD: Continued stablization. CCM. Subjective: Pt seen, discussed with staff. Pleasant and interactive, displaying a good sense of humor. Remains intrusive and demanding of staff and fellow patients' time. Compliant with all treatments. Enuresis continues. Objective: Vital Signs Temp Pulse Resp BP Pulse Ox 36.6 C 95 18 130/60 H 96 11/06/17 21:00 11/06/17 21:00 11/06/17 21:00 11/06/17 21:00 11/06/17 21:00 Laboratory Results 10/22/17 23:30 10/22/17 23:30 - Time Spent With Patient Time Spent With Patient: 25" ICD10 Worksheet Patient Problems: Problems Problem Status Onset Bipolar 1 disorder Acute Altered mental status Active Bipolar disorder Active
[2017-11-07] MEDS: LEVOTHYROXINE 100 MCG TAB PO SCH (08:46)
[2017-11-07] MEDS: LITHIUM CARBONATE ER 450 MG TAB PO SCH ×2 (08:46→20:02)
[2017-11-07] MEDS: PROPRANOLOL HCL 10 MG TAB PO SCH ×2 (08:46→20:07)
[2017-11-07] MEDS: DIVALPROEX NA 250 MG TAB PO SCH ×2 (08:46→20:02)
[2017-11-07] MEDS: PSYLLIUM METAMUCIL 1 PKT PO SCH (08:53)
[2017-11-07] MEDS: POLYETHYLENE GLYCOL 3350 17 GM PKT PO SCH (08:53)
--- NOTE | 2017-11-07 14:05 | SOAPPROG ---
SOAP Progress Note Assessment/Plan: Assessment: Per Dr. Gerber's Recent Notes: 11/02/17 17:37 Catatonia/BAD: Catatonia has resolved. Erlinda has also resolved. She is now at a slightly exaggerated baseline. Will CCM, decrease frequency of ECT to twice a week, titrate meds to more therapeutic realm. 11/03/17 17:31 BAD: Improved overall. Will titrate lithium to 900mg and clozapine back to 200mg. WIll monitor for any adverse cognitive effects from either. Will hold further ECT until 11/09/17 to allow for cruz cognitive recovery. 11/04/17 19:49 BAD: Doing well. Continue d/c planning. 11/05/17 19:00 BAD: Continued improvement. CCM. 11/06/17 21:31 BAD: Continued stablization. [facility]. 11/07/17 14:02 1. Next ECT on Thursday 2. Possible d/c home on Thursday. 3. No med changes 4. Will order CBC on Thursday. Subjective: Met with patient, reviewed chart and d/w staff. Patient presents much closer to baseline today than at any time prior that this MD has seen her. She is still intrusive and talkative, however, her speech is much more linear and goal- directed. She is better able to engage with MD, makes better eye contact and asks more relevant questions. Her mood is also more stable without the crying spells or episodes of irritability or lability MD has witnessed in past. She is also able to get along with peers much better, is not as provocative or reactive to things other people say or do. Objective: Vital Signs Temp Pulse Resp BP Pulse Ox 36.6 C 81 20 126/71 H 95 11/06/17 21:00 11/07/17 08:46 11/07/17 00:30 11/07/17 08:46 11/07/17 00:30 Laboratory Results 10/22/17 23:30 10/22/17 23:30 MSE: Pleasant, cooperative,less talkative. Affect: Euthymic Mood: "OK" less labile TP: More coherent, logical and linear, still tangential and loose at times TC: Denies any SI/HI, no AH/VH Insight/Judgment: Improved - Time Spent With Patient Time Spent With Patient: 20" - Pending Discharge Pending Discharge Within 24 Hours: No Pending Discharge Within 48 Hours: Yes Pending Discharge Date: 11/09/17 (Possible d/c Thursday after ECT) Pending Discharge Time: 11:00 ICD10 Worksheet Patient Problems: Problems Problem Status Onset Bipolar 1 disorder Acute Altered mental status Active Bipolar disorder Active
[2017-11-07] MEDS: cloZAPine 100 MG TAB PO SCH (20:02)
[2017-11-08] MEDS: LITHIUM CARBONATE ER 450 MG TAB PO SCH ×2 (08:29→18:35)
[2017-11-08] MEDS: PROPRANOLOL HCL 10 MG TAB PO SCH ×2 (08:29→18:42)
[2017-11-08] MEDS: DIVALPROEX NA 250 MG TAB PO SCH ×2 (08:30→18:36)
[2017-11-08] MEDS: LEVOTHYROXINE 100 MCG TAB PO SCH (08:33)
[2017-11-08] MEDS: POLYETHYLENE GLYCOL 3350 17 GM PKT PO SCH (09:18)
[2017-11-08] MEDS: PSYLLIUM METAMUCIL 1 PKT PO SCH (09:18)
--- NOTE | 2017-11-08 13:21 | SOAPPROG ---
SOAP Progress Note Assessment/Plan: Assessment: Per Dr. Gerber's Recent Notes: 11/02/17 17:37 Catatonia/BAD: Catatonia has resolved. Erlinda has also resolved. She is now at a slightly exaggerated baseline. Will CCM, decrease frequency of ECT to twice a week, titrate meds to more therapeutic realm. 11/03/17 17:31 BAD: Improved overall. Will titrate lithium to 900mg and clozapine back to 200mg. WIll monitor for any adverse cognitive effects from either. Will hold further ECT until 11/09/17 to allow for cruz cognitive recovery. 11/04/17 19:49 BAD: Doing well. Continue d/c planning. 11/05/17 19:00 BAD: Continued improvement. CCM. 11/06/17 21:31 BAD: Continued stablization. CCM. 11/07/17 14:02 1. Next ECT on Thursday 2. Possible d/c home on Thursday. 3. No med changes 4. Will order CBC on Thursday. 11/08/17 13:18 1. CCM - no change, continues to show signs of improvement 2. Next ECT tomorrow 3. Lab draw tomorrow - CBC Subjective: Met with patient, reviewed chart and d/w staff. Patient continues to do well over weekend, showing signs of improvement in her condition. She seems stable on current med regimen. No SI/HI and no evidence of psychosis. Objective: Vital Signs Temp Pulse Resp BP Pulse Ox 36.6 C 102 H 14 124/61 H 96 11/06/17 21:00 11/08/17 08:29 11/08/17 08:00 11/08/17 08:29 11/08/17 08:00 Laboratory Results 10/22/17 23:30 10/22/17 23:30 MSE: Affect: Elevated, giddy at times (excited about visit from for lunch) Mood: "Good" TP:Loose, but more coherent than at admission TC: Denies any SI/HI, no AH/VH Insight/Judgment: Improved - Time Spent With Patient Time Spent With Patient: 20" - Pending Discharge Pending Discharge Within 24 Hours: Yes Pending Discharge Date: 11/09/17 (Possible d/c tomorrow) Pending Discharge Time: 11:00 ICD10 Worksheet Patient Problems: Problems Problem Status Onset Bipolar 1 disorder Acute Altered mental status Active Bipolar disorder Active
[2017-11-08] MEDS: cloZAPine 100 MG TAB PO SCH (18:36)
[2017-11-08] MEDS: ZOLPIDEM TARTRATE 5 MG TAB PO PRN (21:32)
[2017-11-09] MEDS ORDERED: LIDOCAINE 2% 5 ML SDV ID ONE (04:00)
[2017-11-09] MEDS ORDERED: ONDANSETRON DISINTEGRATING 4 MG TAB PO ONE (04:00)
[2017-11-09] MEDS ORDERED: CITRIC ACID/SODIUM CITRATE 30 ML UDCUP PO ONE (04:00)
[2017-11-09] MEDS ORDERED: NS 1,000 ML IV ONE (04:00)
[2017-11-09] MEDS ORDERED: fentaNYL 100 MCG/2 ML INJ ONE (06:08)
[2017-11-09] MEDS ORDERED: MIDAZOLAM 2 MG/2 ML VIAL ONE (06:09)
[2017-11-09] MEDS ORDERED: PROPOFOL 200 MG/20 ML VIAL ONE (06:09)
[2017-11-09] MEDS ORDERED: KETOROLAC 30 MG/1 ML SDV ONE (06:09)
[2017-11-09] MEDS ORDERED: ETOMIDATE 20 MG/10 ML VIAL ONE (06:09)
[2017-11-09] MEDS ORDERED: ONDANSETRON 4 MG/2 ML VIAL ONE (06:09)
[2017-11-09] MEDS ORDERED: GLYCOPYRROLATE 0.2 MG/1 ML VIAL ONE (06:09)
[2017-11-09] MEDS ORDERED: ROCURONIUM 50 MG/5 ML VIAL ONE (06:09)
[2017-11-09] MEDS ORDERED: SUGAMMADEX SODIUM 200 MG/2 ML VIAL IVP ONE (06:10)
[2017-11-09] MEDS ORDERED: ONDANSETRON DISINTEGRATING 4 MG TAB ONE (08:04)
[2017-11-09] MEDS ORDERED: CITRIC ACID/SODIUM CITRATE 30 ML UDCUP ONE (08:04)
[2017-11-09 09:29] VITALS: TEMP 98.2
[2017-11-09] MEDS: DIVALPROEX NA 250 MG TAB PO SCH (09:45)
[2017-11-09] MEDS: PROPRANOLOL HCL 10 MG TAB PO SCH (09:45)
[2017-11-09] MEDS: LEVOTHYROXINE 100 MCG TAB PO SCH (09:46)
[2017-11-09] MEDS: LITHIUM CARBONATE ER 450 MG TAB PO SCH (09:46)
[2017-11-09 09:52] VITALS: RESP 14
[2017-11-09 09:59] LABS: % IMMATURE GRANULYOCYTES 0.6 % (0.0-1.1); ABSOLUTE IMMATURE GRANULOCYTES 0.04 10^3/uL (0.00-0.10); ADD DIFF? NO; ADD MORPH? NO; ADD SCAN? NO; ATYPICAL LYMPHOCYTE FLAG 10 (0-99); FRAGMENT RBC FLAG 0 (0-99); HEMATOCRIT 38.4 % (38.0-47.0); HEMOGLOBIN 12.1 g/dL (12.6-16.3); LEFT SHIFT FLG 0 (0-99); LIPEMIA HEMOLYSIS FLAG 80 (0-99); MEAN CELL HEMOGLOBIN 28.2 pg (27.9-34.1); MEAN CELL HEMOGLOBIN CONCENTR. 31.5 g/dL (32.4-36.7); MEAN CELL VOLUME 89.5 fL (81.5-99.8); MEAN PLATELET VOLUME 12.6 fL (8.7-11.7); PLATELET CLUMPS FLAG 0 (0-99); PLATELET COUNT 192 10^3/uL (150-400); RED BLOOD CELL COUNT 4.29 10^6/uL (4.18-5.33); RED CELL DISTRIBUTION WIDTH 13.8 % (11.5-15.2)
[2017-11-09] MEDS: POLYETHYLENE GLYCOL 3350 17 GM PKT PO SCH (10:48)
[2017-11-09] MEDS: PSYLLIUM METAMUCIL 1 PKT PO SCH (10:48)
[2017-11-09 10:57] LABS: LITHIUM 0.6 mEq/L (0.6-1.2)
[2017-11-09 14:02] VITALS: BP 107/79; PULSE 84; O2SAT 95
--- NOTE | 2017-11-12 02:04 | BDS ---
[f rep st] BEHAVIORAL HEALTH DISCHARGE SUMMARY REASON FOR ADMISSION: Patient is a 42-year-old female with a history of bipolar disorder w ith previous catatonic depression and NMS in the past. She presented to the hospital in a very decom pensated state in what appeared to be a severe lorena with psychosis, having been tapered off her medi cines by her in what he described as miscommunication with the psychiatrist and having missed 2 ECT treatments. She was previously participating in monthly maintenance ECT and had a change to h er EKG. We were unable to perform the ECT in May. She received a full cardiac workup clearing her to continue but she missed the next 2 treatments as well. She and her had wanted to stop ECT for some time. We had dealt with this with her and also with her parents in support of her continui ng ECT as she remained psychiatrically stable as long as she was doing the maintenance ECT. It is un clear whether this was purposeful or not, but the combination of stopping ECT and decreasing or stopp ing her medications certainly contributed to her severe decompensation. A full description of the sy mptoms preceding admission can be found in her admission history dated 09/17/2017. ADMITTING DIAGNOSES: Bipolar 1 disorder, most recent episode manic, severe with psychosis with catat onia, likely an excited variant. Recurrent illness. Chronic illness. Medication noncompliance. ADMISSION PHYSICAL EXAMINATION: Performed by Dr. Kojo Fletcher revealed anemia. No other physical findings. ADMISSION LABORATORY: Revealed a normal CBC, normal serum chemistries, negative beta HCG, normal TSH , normal iron tests. Urine drug screen positive for phencyclidine. [place] on admission was 0.9. HOSPITAL COURSE: Patient was admitted to the behavior health services inpatient unit on an M1 hold. She was extremely agitated and was speaking nonsensically in a pressured and disorganized manner. S he was unable to answer questions or give meaningful responses to staff or myself. She was extremely disorganized, agitated, pacing, intrusive, irritable and physically imposing if not aggressive at ti mes. She did not sleep or eat when she first arrived and appeared to be in a state of catatonic exci tement. Given her previous history of catatonia, we immediately began emergency ECT as I applied for court-ordered ECT permission. I felt that there was enough of an emergency given her previous even more severe catatonia that contributed to the development of NMS and was quite life-threatening. She was resistant to the ECT, though never became physically aggressive. She could not verbalize any re asons why she was resistive, though was just agitated and had trouble laying still. This required se veral staff members and a rapid sequence anesthesia in order to properly treat her. However, this wa s done without incident. After 5 or 6 treatments, she calmed significantly and was able to participa te more willingly. I did receive the court order and we proceeded on that basis for the remainder of her treatment. To emphasize, the reason for the court order was not necessarily that she was refusi ng, but that she lacked capacity to give informed consent. The patient's hospitalization was complicated by a number of factors. She had numerous falls requiri ng her to be on [id number] frequently during her stay. These were hard to understand and were typ ically not witnessed. She was not injured in any of these falls, but would be found on the floor in her room and she would say that she fell. She also was intrusive, irritable and, at times, verbally aggressive with staff and other patients causing significant disruption to the milieu. She incited n umerous other manic or psychotic patients throughout the 2 months she was in the hospital. All in al l, was quite a disruptive factor for the unit. We have worked with her for a number of years and und erstand this to be a variation of her normal behavior, though it was much more intense and disturbing . She was given medications for sleep including trazodone and Ambien. This was effective in restabi lizing a normal sleep pattern. She did develop enuresis, however, and wet the bed on most nights. T his was not strictly speaking incontinence as it was initially described as she did not have any prob jenny properly toileting during the day. She simply would wet the bed once or twice in the middle of t he night in copious amounts. I discussed this with staff and colleagues and thought perhaps it could be related to the clozapine, as it is a known side effect, but again I do not believe that it repres ented incontinence as much as enuresis. We worked with her to be on the top of the hour urination as it seemed that she would hold her urine in and then, when she went to bed, had overflow bladder caus ing the enuresis. Her father believed that the Ativan, which we had given her on a scheduled basis w maxe she was catatonic, was a contributor as this had caused significant sedation in the past that wa s accompanied by enuresis. The Ativan was discontinued prior to the time of her discharge. The patient's hospitalization otherwise progressed as expected. She was slow to respond, though this certainly was consistent with the severity of her illness. She received approximately 20 total ECT treatments in the acute course prior to discharge and made progressive improvements. She was able to interact normally by the time of discharge. While she remained slightly animated, was no longer augusto tated. She was eating and drinking properly. She was sleeping well and was normally conversant. The patient arrived in the hospital with her medications either having been decreased or discontinued . We therefore took the opportunity to re-evaluate these. I had several conversations with Dr. Vasques who agreed with my opinion that the degree of polypharmacy may not be necessary and we began conserv atively. She was continued on her Clozaril, which she was which was 100 mg admission and increased t o 150 and then 200 mg. It was decreased back to 150 for a period of time to see if that could improv e the enuresis and it did not. It was then increased back to 200 mg which was her discharge dose. T he Depakote, Lamictal and lithium were held during the early part of her acute treatment phase. The anticonvulsants were known by me to severely impair her ability to have quality seizures and the lith ium might contribute to confusion. Once her mental status began to improve, we reintroduced the lith ium and then the Depakote. She tolerated these well. She continued to have reasonable seizures. Le vels were checked prior to discharge. The Depakote was at 73 and lithium was at 0.6. The Lamictal w as not restarted. CONDITION AT DISCHARGE: Stable. Her affect was euthymic, stable and appropriate. She was compliant with all medications, was bright and interactive, and displaying no evidence of catatonia, agitation , acute psychosis or aggression. DISCHARGE MEDICATIONS: Clozaril 200 mg p.o. q.h.s., Depakote 750 mg p.o. b.i.d., lithium carbonate E R 450 mg b.i.d., melatonin 3-6 mg p.o. q.h.s. p.r.n., propranolol 10 mg p.o. b.i.d., Ambien 5 mg p.o. q.h.s. p.r.n. sleep and levothyroxine 100 mcg p.o. daily. DISCHARGE DIAGNOSES: 1. Bipolar 1 disorder. Most recent episode manic severe with psychosis. 2. Catatonia, excited type. 3. Chronic illness. 4. Recurrent illness. DISPOSITION: Patient left the hospital with her and returned to their home in [place]. FOLLOWUP: With myself for ECT on 11/16/2017, and with Dr. Vasques as scheduled by the daycare teacher. LEGAL COURSE: Patient was placed on a short-term certification at the expiration of her M1 hold. [facility] short-term certification was discontinued at the time of her discharge. /[id number]/MODL
== END 2017-11-09 12:47 | disposition home or self-care (01) | DRG 885 ==
LOC: BBEH 09-17 09:00
PROVIDERS: ADMIT Psychiatry & Neurology Psychiatry; ATTEND Psychiatry & Neurology Psychiatry
PROC: GZB4ZZZ Other Electroconvulsive Therapy (ICD-10-PCS; principal; 2017-09-17)
DX: F31.2 Bipolar disorder, current episode manic severe with psychotic features (principal); K59.00 Constipation, unspecified; E03.9 Hypothyroidism, unspecified; D64.9 Anemia, unspecified
CPT/HCPCS: 80305; J0461; J1642; J1885; J2060; J2250; J2405; J2704; J2710; J3010; J3490